=== PATIENT | female | born 1995 | race Caucasian/White ===

== ENCOUNTER 2018-05-07 00:25 | Outpatient (CLI) | payer MEDICAID, SELFPAY ==
--- NOTE | 2018-05-07 12:43 | DI.CT_ITS ---
SYMPTOMS/DIAGNOSIS: UMBILICAL DRAINAGE S/P URACHAL CYST RESECTION, R19.[address]: CT examination of the abdomen and pelvis was performed utilizing oral contrast only. The patient reportedly has umbilical drainage post urachal cyst resection. Images obtained through the lung bases are unremarkable. Liver, spleen and pancreas appear normal. Gallbladder and bile ducts are CT normal. Adrenals and kidneys appear normal. Abdominal aorta is of normal diameter. No abdominal or pelvic adenopathy seen. No free air or free fluid in the peritoneal cavity. WAD LUBRICATOR structures appear intact. Urinary bladder is essentially empty. Appendix appears normal. No evidence of diverticulitis or bowel obstruction. No fluid collection, abscess or mass identified in the anterior abdominal wall or elsewhere. CONCLUSION: Negative abdominal and pelvic CT.
[2018-05-07] MEDS: Omnipaque 350 MG/ML 50 ML BTL IV (13:51)
== END 2018-05-07 00:45 ==
PROVIDERS: PCP Pediatrics; Visit Provider Surgery
DX: R19.8 Other specified symptoms and signs involving the digestive system and abdomen (principal); Z98.890 Other specified postprocedural states; L08.82 Omphalitis not of newborn
CPT/HCPCS: 74176; Q9967

== ENCOUNTER 2018-07-19 07:52 | Emergency (ER) | payer MEDICAID, SELFPAY ==
[2018-07-19 07:55] VITALS: BP 133/56; PULSE 98; RESP 18; TEMP 36.7; O2SAT 100
--- NOTE | 2018-07-19 08:03 | ED.GENADUL_ITS ---
Discharge Plan Disposition Patient Disposition: HOME Condition: Improving Discharge Details Chief Complaint: Abd Prob Clinical Impression: Abdominal pain, Nausea vomiting and diarrhea Primary Care Provider: Melinda Huang V ED Provider: Carmen Henley Home Meds and New Rx's Prescriptions: New ondansetron HCl [Zofran] 4 mg tablet 4 mg PO TID PRN (Reason: nausea and vomiting) Qty: 6 RF: 0 Continued Nexplanon 68 MG implant 68 mg SQ ONCE Qty: 1 RF: 0 multivitamin [One Daily] 1 EACH tablet 1 ea PO DAILY RF: 0 ibuprofen 600 MG tablet 600 mg PO Q6H PRN PRNQty: 30 RF: 1 acetaminophen [Tylenol] 325 MG tablet 650 mg PO PRN PRNQty: 0 RF: 0 Discharge Instructions Instructions: Acute Nausea and Vomiting (ED), Abdominal Pain (ED) Additional Instructions: Take the Zofran as needed and directed for any nausea or vomiting. Alternate Tylenol and Motrin as needed directed for pain. Follow a bland diet of bananas, rice, applesauce, toast, pretzels and crackers while symptoms present. Call your primary care doctor and women's wellness today to schedule a follow-up appointment for reevaluation. Return to the emergency department with any worsening or new concerning symptoms. Stand Alone Forms: Work Release Discharge Data Discharge Date/Time-TO BE ENTERED AT DEPARTURE: 07/19/18 10:59 Discharge Physician: Carmen Henley Medical Decision Making 22-year-old female with a history of asthma and migraines who presents with nausea, vomiting and diarrhea for the past 2 weeks and right-sided abdominal pa in since this morning. She has a Nexplanon for the past 3 years. She took a test this morning which was positive. A second test was read as error. She has right-sided abdominal pain extending from the right upper to right lower quadrant, most pronounced in the right lower quadrant. Otherwise her abdomen is soft without rigidity or guarding. test negative on arrival. Differential diagnosis includes appendicitis, gastroenteritis, colitis, ovarian cyst, cholecystitis, cholelithiasis. Due to positive test at home, will check a beta quant, CBC, CMP, lipase, urinalysis. Pending quant results, and if negative, will obtain a CT abdomen and pelvis to assess for appendicitis. 0950 --labs reviewed and unremarkable. Normal white blood cell count, e lectrolytes. Beta quant negative. Urinalysis notes 5-10 WBCs, urine culture sent. In the setting of no fever, no white blood cell count and no urinary symptoms, will hold on antibiotic treatment for this at this time. On reassessment of abdomen, patient still with right lower quadrant greater than right upper quadrant tenderness palpation. Patient is agreeable with plan for CT abdomen at this time. Will give a dose of Toradol and reassess. 1025 --CT negative. Patient states he feels much better and is requesting to go home. Reassessment of abdomen notes significant improvement in abdominal tenderness. Will send home with a prescription for Zofran. Discussed at length with patient that due to her daily symptoms of nausea and vomiting, this could be associated with her daily marijuana use and cyclic vomiting and to consider a trial off marijuana to see if this improves her symptoms. Also discussed that her symptoms could be due to a viral process. She is instructed to follow a bland diet for the next 2 days. She is instructed to call her primary care doctor and women's wellness to schedule a follow-up appointment for reevaluation and return here at any time if worse. Medical Records Medical records reviewed: Yes I reviewed the patient's medical records. Imaging Data Radiologic Study: Radiologist's impression: ABDOMEN AND PELVIC CT: CT examination of the abdomen and pelvis was performed with a bolus infusion of 100 cc's of Omnipaque 350. Images obtained through the lung bases are unremarkable. There is a tiny low attenuation focus and right hepatic lobe inferiorly consistent with small cysts. No additional hepatic mass seen. No biliary dilatation. Gallbladder is CT normal. Pancreas appears normal. Adrenals and kidneys appear normal. No evidence of urinary tract calcification or obstruction. Urinary bladder is unremarkable in appearance. 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 No free fluid identified in the pelvis. No abdominal wall hernia is seen. No abdominal or pelvic adenopathy is seen. Appendix is normal. No evidence of diverticulitis or bowel obstruction. CONCLUSION: Negative abdominal and pelvic CT. Lab Data Lab results reviewed: Yes I reviewed the patient's lab results. 07/19/18 08:00 Urine - Reflex from Ua Urine Culture - Pending Laboratory Tests Range/Units 07/19/18 07/19/18 07/19/18 08:00 08:35 08:35 WBC (4.4-10.8) k/cumm 7.09 RBC (4.00-5.20) m/cumm 5.15 Hgb (12.0-15.5) g/dL 15.5 Hct (36.0-46.0) % 45.0 MCV (80-95) fL 87.4 MCH (27.0-33.0) pg 30.1 MCHC (32.0-36.0) g/dL 34.4 RDW (11.7-14.6) % 12.4 Plt Count (130-400) x1000/uL 326 MPV (8.0-11.0) fL 9.4 Immature Gran % 0.4 Neutrophils % 64.5 Lymphocytes % 26.5 Monocytes % 6.1 Eosinophils % 2.1 Basophils % 0.4 Absolute Neutrophils (1.2-6.7) k/cumm 4.57 Absolute Lymphocytes (1.2-3.4) k/cumm 1.88 Absolute Monocytes (0.11-0.7) k/cumm 0.43 Absolute Eosinophils (0.0-0.7) k/cumm 0.15 Absolute Basophils (0.0-0.2) k/cumm 0.03 Sodium (136-145) mmol/L 139 Potassium (3.5-5.1) mmol/L 4.5 Chloride (98-107) mmol/L 103 Carbon Dioxide (21.0-32.0) mmol/L 28.6 Anion Gap (3-11) mmol/L 7.4 BUN (7-18) mg/dL 10 Creatinine (0.55-1.02) mg/dL 0.94 Estimated GFR/1.73 m2 (mL/min/1.73m2) >= 60.00 Glucose (70-100) mg/dL 98 Calcium (8.5-10.1) mg/dL 9.0 Total Bilirubin (0.2-1.0) mg/dL 1.1 H AST (15-37) U/L 22 ALT (12-78) U/L 63 Alkaline Phosphatase (46-116) U/L 84 Total Protein (6.4-8.2) g/dL 7.8 Albumin (3.4-5.0) g/dL 4.0 Lipase (73-393) U/L 109 Beta HCG, Quant (1-3) mIU/mL < 1 L Urine Color (Yellow) Yellow Urine Clarity Sl cloudy Urine pH (5-8) 7.0 Ur Specific [place] (1.005-1.025) 1.025 Urine Protein (Negative) mg/dL Negative Urine Ketones (Negative) mg/dL Negative Urine Blood (Negative) Negative Urine Nitrite (Negative) Negative Urine Bilirubin (Negative) Negative Urine Urobilinogen (Up TO 0.2) EU/dL 0.2 Ur Leukocyte Esterase (Negative) Small H Urine RBC (0-2) 3-5 H Urine WBC (0-5) HPF 5-10 Ur Epithelial Cells (Negative) HPF Few Urine Crystals (Negative) HPF Negative Urine Bacteria (Negative) HPF Negative Urine Casts (Negative) LPF Negative Urine Mucus (Negative) Trace Ur Culture Indicated? Yes Urine Glucose (Negative) mg/dL Negative HPI General Mode of arrival: ambulatory . Date/Time Provider Initiated Documentation: 07/19/18 07:54 . Limitations to Documentation: no limitations . Information obtained by: patient . HPI Narrative: Patient is a 22-year-old female who presents the ED with complaint of nausea vomiting and diarrhea for the past 2 weeks and abdominal pain since this morning. Patient states every morning she has awoke with nausea with a few episodes of vomiting in the morning and occasionally at nighttime. She states she is also had occasional diarrhea a few times a week. She states her abdominal pain is diffuse and worse on the right side. She states she is on Nexplanon for the past 3 years but due to her symptoms took a test this morning and it was positive. She states she followed up with a second test but states this was read as an error. She states her last menstrual period was January 2016. She states her abdominal pain was initially constant and sharp but is now resolved. She did not eat anything at this morning. She denies any known fever, urinary symptoms, recent antibiotics, recent travel or sick contacts. Related Data Home Medications Medication Instructions Recorded Confirmed multivitamin [One Daily] 1 ea PO DAILY 01/19/17 04/30/18 acetaminophen [Tylenol] 650 mg PO PRN PRN #0 01/21/17 04/30/18 ibuprofen 600 mg PO Q6H PRN PRN #30 tab 01/21/17 04/30/18 Nexplanon 68 mg SQ ONCE #1 implant 09/08/17 04/30/18 ondansetron HCl [Zofran] 4 mg PO TID PRN #6 tab 07/19/18 Previous Rx's Medication Instructions Recorded acetaminophen [Tylenol] 650 mg PO PRN PRN #0 01/21/17 ibuprofen 600 mg PO Q6H PRN PRN #30 tab 01/21/17 ondansetron HCl [Zofran] 4 mg PO TID PRN #6 tab 07/19/18 Allergies Allergy/AdvReac Type Severity Reaction Status Date / Time codeine AdvReac Intermediate hyper Verified 04/30/18 12:49 Melon AdvReac Unknown Hives Uncoded 04/30/18 12:49 General Stated Complaint: Abd Prob KARO: 3 Review of Systems Review of Systems All systems reviewed & are unremarkable except as noted in HPI and below Constitutional Reports as per HPI, Denies chills and Denies fever(s) Eyes Denies blurry vision ENT Denies dizziness, Denies sore throat and Denies throat swelling Cardiovascular Denies chest pain and Denies dyspnea Respiratory Denies cough and Denies dyspnea Gastrointestinal Reports abdominal pain, Reports diarrhea and Reports vomiting Genitourinary Denies hematuria and Denies dysuria Musculoskeletal Denies back pain and Denies numbness Integumentary/Breasts Denies lesions and Denies rash Neurologic Denies dizziness, Denies focal weakness and Denies numbness Allergic/Immunologic Denies throat swelling [facility] Medical History Asthma Migraine Surgical History Urachal remnant (Acute) S/P exploratory laparotomy (Acute) Biopsy, Soft Tissue (04/17/17) Tonsillectomy and adenoidectomy (~2010) urachal cyst excision (01/21/17) Family History Mother Mental disorder Father Substance abuse Migraines Other Diabetes Migraines Neoplasm Sister Asthma Sister Asthma Social History Smoking/Tobacco Use Status: Current every day Tobacco Type: cigarettes Alcohol Intake: never Drug use: Never Substance use type: marijuana Do you feel safe at home: Yes Do you feel safe in your relationship?: Yes Exam Const General: cooperative, healthy appearing and no acute distress HENMT Head: normal to inspection Face and sinus: normal facial exam Eyes General: appearance normal, both eyes and all related structures EOM: EOM intact bilaterally Neck Neck: normal visual inspection and No submandibular swelling Lymphatic: no lymphadenopathy noted Chest Chest: normal inspection of the chest and no tenderness Resp Effort & Inspection: normal respiratory effort and able to speak in complete sentences Auscultation: clear to auscultation bilaterally Cardio Rate: regular rate Rhythm: regular rhythm GI Inspection: normal to inspection Palpation: soft, not firm, not rigid and tender (extending from RUQ to RLQ, most tender in RLQ) other (negative heel jar sign); obturator sign negative, psoas sign negative, with no rebound tenderness and Rovsing's sign negative Auscultation: hypoactive bowel sounds Skin General skin exam: no rashes or lesions noted Neuro General: alert, awake and oriented x3 Cognition: normal cognition Speech: speech normal Motor: muscle tone normal throughout Sensory Exam: no sensory deficits noted Extrem General: normal to inspection, full ROM and no edema Psych Appearance: grossly normal Mental Status: mental status grossly normal Speech and Movement: speech and movement normal Affect: normal affect Course Vital Signs Temperature 98.1 F 07/19/18 07:55 Pulse 98 H 07/19/18 07:55 Respiratory Rate 18 07/19/18 07:55 Blood Pressure 133/56 L 07/19/18 07:55 Pulse Oximetry 100 07/19/18 07:55 Temperature 98.1 F 07/19/18 07:55 Temperature Source Skin 07/19/18 07:55 Pulse 98 H 07/19/18 07:55 Respiratory Rate 18 07/19/18 07:55 Blood Pressure 133/56 L 07/19/18 07:55 Blood Pressure Position Supine 07/19/18 07:55 Pulse Oximetry 100 07/19/18 07:55 Oxygen Delivery Method Room Air 07/19/18 07:55 Oxygen Flow Rate 0 07/19/18 07:55
[2018-07-19 08:16] LABS: Bilirubin Negative (Negative); Blood Negative (Negative); Clarity Sl Cloudy; Glucose Negative (Negative); Ketones Negative (Negative); Leukocyte Esterase Small (Negative); Nitrite Negative (Negative); Specific Gravity 1.025 (1.005-1.025); Urobilinogen 0.2 EU/dL (Up TO 0.2)
[2018-07-19 08:29] LABS: Bacteria Negative HPF (Negative); C & S Indicated? Yes; Casts Negative LPF (Negative); Crystals Negative HPF (Negative); Epithelial Cells Few HPF (Negative); Mucus Trace (Negative)
[2018-07-19 08:40] LABS: Abs Immature Grans 0.03 k/cumm (0.0-0.09); Absolute Basophil Count 0.03 k/cumm (0.0-0.2); Absolute Eosinophil Count 0.15 k/cumm (0.0-0.7); Absolute Lymphocyte Count 1.88 k/cumm (1.2-3.4); Absolute Monocyte Count 0.43 k/cumm (0.11-0.7); Absolute Neutrophil Count 4.57 k/cumm (1.2-6.7); Basophils % 0.4; Eosinophils % 2.1; HGB 15.5 g/dL (12.0-15.5); Immature Grans % 0.4; Lymphocytes % 26.5; Mean Corp. HGB Concentration 34.4 g/dL (32.0-36.0); Mean Corpuscular Hemoglobin 30.1 pg (27.0-33.0); Mean Corpuscular Volume 87.4 fL (80-95); Mean Platelet Volume 9.4 fL (8.0-11.0); Monocytes % 6.1; Neutrophils % 64.5; Platelet Count 326 x1000/uL (130-400); RBC 5.15 m/cumm (4.00-5.20); RBC Distribution Width 12.4 % (11.7-14.6); White Blood Cell Count 7.09 k/cumm (4.4-10.8)
[2018-07-19 09:05] LABS: ALT 63 U/L (12-78); AST 22 U/L (15-37); Alkaline Phosphatase 84 U/L (46-116); Anion Gap 7.4 mmol/L (3-11); BUN 10 mg/dL (7-18); Bilirubin, Total 1.1 mg/dL (0.2-1.0); CO2 28.6 mmol/L (21.0-32.0); CREATININE 0.94 mg/dL (0.55-1.02); Chloride 103 mmol/L (98-107); Glucose 98 mg/dL (70-100); HCG Quant, Pregnancy < 1 mIU/mL (1-3); Potassium 4.5 mmol/L (3.5-5.1); Sodium 139 mmol/L (136-145); Total Protein 7.8 g/dL (6.4-8.2)
[2018-07-19 09:15] LABS: Lipase 109 U/L (73-393)
--- NOTE | 2018-07-19 09:47 | DI.CT_ITS ---
SYMPTOM/DIAGNOSIS: RLQ AND RUQ ABD PAIN, ? APPENDICITIS ABDOMEN AND PELVIC CT: CT examination of the abdomen and pelvis was performed with a bolus infusion of 100 cc's of Omnipaque 350. Images obtained through the lung bases are unremarkable. There is a tiny low attenuation focus and right hepatic lobe inferiorly consistent with small cysts. No additional hepatic mass seen. No biliary dilatation. Gallbladder is CT normal. Pancreas appears normal. Adrenals and kidneys appear normal. No evidence of urinary tract calcification or obstruction. Urinary bladder is unremarkable in appearance. RUG DRY ROOM ATTENDANT structures appear intact. No free fluid identified in the pelvis. No abdominal wall hernia is seen. No abdominal or pelvic adenopathy is seen. Appendix is normal. No evidence of diverticulitis or bowel obstruction. CONCLUSION: Negative abdominal and pelvic CT.
[2018-07-19] MEDS: Ketorolac 30 MG/ML VIAL IVP (09:53)
[2018-07-19] MEDS: Normal Saline Flush 10 ML SYR IVP (09:53)
[2018-07-19] MEDS: Omnipaque 350 MG/ML 100 ML BTL IJ (10:17)
[2018-07-19 10:58] VITALS: BP 110/78; PULSE 66; RESP 16; TEMP 36.7; O2SAT 99
== END 2018-07-19 10:59 | disposition home or self-care (01) ==
PROVIDERS: Emergency Provider Physician Assistant; PCP Pediatrics
DX: R10.31 Right lower quadrant pain (principal); R10.11 Right upper quadrant pain; R11.2 Nausea with vomiting, unspecified; R19.7 Diarrhea, unspecified
CPT/HCPCS: 36415; 80053; 81025; 83690; 96374; 99285; 74177; 81003; 81015; 84702; 85025; 87086; 99284; J1885; J3490

== ENCOUNTER 2018-08-15 12:11 | Emergency (ER) | payer MEDICAID, SELFPAY ==
[2018-08-15 12:33] VITALS: BP 125/95; PULSE 83; RESP 16; TEMP 36.7; O2SAT 98
--- NOTE | 2018-08-15 12:53 | DI.RAD_ITS ---
SYMPTOM/DIAGNOSIS: TRAUMA, ANATOMICAL SNUFF BOX PAIN, PUNCHED WALL,5TH METACARPAL PAIN RIGHT WRIST: Four views were obtained. No fracture is seen. RIGHT HAND: Three views were obtained. No fracture is seen.
--- NOTE | 2018-08-15 13:38 | DI.VRAD_ITS ---
EXAM: XR Right Wrist EXAM DATE/TIME: 08/15/2018 12:55 PM CLINICAL HISTORY: 23 years old, female; Signs and symptoms; Other: Trauma, anatomical snuffbox pain TECHNIQUE: Imaging protocol: XR Right wrist. Views: 3 or more views. COMPARISON: No relevant prior studies available. FINDINGS: Bones/joints: Normal. Soft tissues: Normal. IMPRESSION: No acute findings. Dictated and Authenticated by: Anup Smith MD. Ordering:EDIS Landrum MD
--- NOTE | 2018-08-15 13:38 | DI.VRAD_ITS ---
EXAM: XR Right Hand EXAM DATE/TIME: 08/15/2018 12:55 PM CLINICAL HISTORY: 23 years old, female; Signs and symptoms; Other: Trauma, fifth metacarpal pain TECHNIQUE: Imaging protocol: XR Right hand. Views: 3 or more views. COMPARISON: No relevant prior studies available. FINDINGS: Bones/joints: Normal. Soft tissues: Normal. IMPRESSION: No acute findings. Dictated and Authenticated by: Anup Smith MD. Ordering:EDIS Landrum MD
--- NOTE | 2018-08-15 14:37 | ED.GENADUL_ITS ---
Discharge Plan Disposition Patient Disposition: HOME Condition: Stable Discharge Details Chief Complaint: Orthopedic Clinical Impression: Contusion of hand, right, Sprain of wrist, right Primary Care Provider: Melinda Huang V ED Provider: Diallo Simmons Home Meds and New Rx's Prescriptions: Continued Nexplanon 68 MG implant 68 mg SQ ONCE Qty: 1 RF: 0 multivitamin [One Daily] 1 EACH tablet 1 ea PO DAILY RF: 0 ibuprofen 600 MG tablet 600 mg PO Q6H PRN PRNQty: 30 RF: 1 acetaminophen [Tylenol] 325 MG tablet 650 mg PO PRN PRNQty: 0 RF: 0 Discharge Instructions Instructions: Contusion in Adults (ED), Wrist Sprain (ED) Additional Instructions: Continue use [id number] pain medication as needed for discomfort, apply ice, and wear splint as needed for further relief of pain. Return to the emergency department for new or significant worsening of symptoms otherwise follow-up with your primary care provider as needed for reassessment or if not improving in the next couple weeks. Referrals: Melinda Huang MD [Primary Care Provider] - (As needed for reassessment or if not improving) Discharge Data Discharge Date/Time-TO BE ENTERED AT DEPARTURE: 08/15/18 14:55 Medical Decision Making Patient states yesterday she punched a wall with her right hand. Today she noted some bruising and significant discomfort over the fifth metacarpal. Patient also does state some wrist pain. Physical exam shows significant tenderness to palpation of the fifth metacarpal mainly at the distal aspect with moderate ecchymosis and swelling to that area. Patient also does have anatomical snuffbox tenderness to the wrist otherwise no other acute findings noted on exam.. Plan to do radiological imaging to rule out acute fracture. Review of radiological imaging and radiologist interpretation shows no acute findings no fracture no dislocation. Plan to treat conservatively with splinting, [id number] pain medication and activity as tolerated. HPI General Mode of arrival: ambulatory . Date/Time Provider Initiated Documentation: 08/15/18 12:38 . Limitations to Documentation: no limitations . Information obtained by: patient and RN notes reviewed . History of Present Illness 23 year old F presents to the emergency department with the chief complaint of right hand injury, described as moderate, with intensity rated at 7. Quality is described as aching and sharp, and is localized to the right and upper extremity. Patient started experiencing this day(s) (1) and it has been constant. No relieving factors improve symptom(s), Patient did receive the following treatments prior to arrival, none Related Data Home Medications Medication Instructions Recorded Confirmed multivitamin [One Daily] 1 ea PO DAILY 01/19/17 08/15/18 acetaminophen [Tylenol] 650 mg PO PRN PRN #0 01/21/17 08/15/18 ibuprofen 600 mg PO Q6H PRN PRN #30 tab 01/21/17 08/15/18 Nexplanon 68 mg SQ ONCE #1 implant 09/08/17 04/30/18 Previous Rx's Medication Instructions Recorded acetaminophen [Tylenol] 650 mg PO PRN PRN #0 01/21/17 ibuprofen 600 mg PO Q6H PRN PRN #30 tab 01/21/17 Allergies Allergy/AdvReac Type Severity Reaction Status Date / Time codeine AdvReac Intermediate hyper Verified 08/15/18 12:38 Melon AdvReac Unknown Hives Uncoded 08/15/18 12:38 General Stated Complaint: Orthopedic KARO: 4 Review of Systems Musculoskeletal Reports as per HPI, Denies numbness and Denies tingling Integumentary/Breasts Denies rash, Denies sores and Denies wounds Neurologic Denies numbness and Denies tingling PFSH Medical History Asthma Migraine Surgical History Urachal remnant (Acute) S/P exploratory laparotomy (Acute) Biopsy, Soft Tissue (04/17/17) Tonsillectomy and adenoidectomy (~2010) urachal cyst excision (01/21/17) Family History Mother Mental disorder Father Substance abuse Migraines Other Diabetes Migraines Neoplasm Sister Asthma Sister Asthma Social History Smoking/Tobacco Use Status: Current every day Tobacco Type: cigarettes Alcohol Intake: never Drug use: Never Substance use type: marijuana Do you feel safe at home: Yes Do you feel safe in your relationship?: Yes Exam Const General: cooperative and no acute distress Orientation: alert, awake and oriented x3 Resp Effort & Inspection: normal respiratory effort and able to speak in complete sentences Cardio Rate: regular rate Rhythm: regular rhythm Extrem Right upper extremity: wrist Details: tenderness Location: of the anatomic snuffbox, abnormal ROM Details: pain with active ROM during Details: with extension and with flexion, normal vascular exam and radial pulse present; no unusual warmth, no abrasions, no ecchymosis and no deformity and hand Details: normal capillary refill, neuromotor exam normal, neurosensory exam normal, tendon exam normal, tenderness Location: of the dorsal hand Location: over the 5th metacarpal and of the 5th digit Location: at the MCP joint, normal ROM of fingers and swelling Location: of the dorsal hand Location: over the 4th metacarpal and over the 5th metacarpal; no abrasions and no lacerations Course Vital Signs Temperature 36.7 C 08/15/18 12:33 Pulse 83 08/15/18 12:33 Respiratory Rate 16 08/15/18 12:33 Blood Pressure 125/95 H 08/15/18 12:33 Pulse Oximetry 98 08/15/18 12:33 Temperature 36.7 C 08/15/18 12:33 Temperature Source Temporal Artery Scan 08/15/18 12:33 Pulse 83 08/15/18 12:33 Respiratory Rate 16 08/15/18 12:33 Respiratory Effort 08/15/18 12:37 Blood Pressure 125/95 H 08/15/18 12:33 Blood Pressure Position Sitting 08/15/18 12:33 Pulse Oximetry 98 08/15/18 12:33 Oxygen Delivery Method Room Air 08/15/18 12:33 Oxygen Flow Rate 0 08/15/18 12:33 Pain Level 8 08/15/18 12:33
== END 2018-08-15 14:55 | disposition home or self-care (01) ==
PROVIDERS: Emergency Provider Nurse Practitioner Family; PCP Pediatrics
DX: S63.501A Unspecified sprain of right wrist, initial encounter (principal); S60.221A Contusion of right hand, initial encounter; W22.8XXA Striking against or struck by other objects, initial encounter
CPT/HCPCS: 29125; 99284; 73110; 73130; 99282; L3908

== ENCOUNTER 2018-08-19 12:56 | Outpatient (CLI) | payer MEDICAID, SELFPAY ==
--- NOTE | 2018-08-19 14:30 | DI.US_ITS ---
SYMPTOMS/DIAGNOSIS: RIGHT UPPER QUADRANT PAIN, RADIATES TO BACK, CYST IN LIVER ON CT, R10.11 ABDOMINAL ULTRASOUND: Comparison CT is 07/19/18. The aorta is unremarkable, as is the inferior vena cava. The liver is normal in size. No suspicious hepatic mass is seen. Incidental note is made of a 0.5 cm simple cyst in the inferior right lobe. The gallbladder, bile duct, spleen and kidneys are unremarkable. Portions of the body of the pancreas were visualized and are grossly unremarkable. The remainder of the pancreas could not be seen due to overlying bowel. IMPRESSION: Essentially unremarkable abdominal ultrasound.
== END 2018-08-19 13:16 ==
PROVIDERS: PCP Pediatrics; Visit Provider Pediatrics
DX: R10.11 Right upper quadrant pain (principal); K76.89 Other specified diseases of liver
CPT/HCPCS: 76700

== ENCOUNTER 2018-09-10 08:34 | Emergency (ER) | payer MEDICAID, SELFPAY ==
[2018-09-10 08:36] VITALS: BP 132/88; PULSE 98; RESP 16; TEMP 36.9; O2SAT 96
--- NOTE | 2018-09-10 08:45 | DI.RAD_ITS ---
SYMPTOM/DIAGNOSIS: INVERTED FOOT, FREDERICK MID FOOT AND ANTERIOR ANKLE. RIGHT ANKLE; 09/10 Three views were obtained. The ankle mortise appears well maintained. No fracture is seen. RIGHT FOOT: 09/10 Three views were obtained. No fracture is seen.
--- NOTE | 2018-09-10 09:12 | ED.GENADUL_ITS ---
Discharge Plan Disposition Patient Disposition: HOME Condition: Good Discharge Details Chief Complaint: Orthopedic Clinical Impression: Ankle sprain, Contusion of foot Primary Care Provider: Melinda Huang V ED Provider: Zheng Ortega Home Meds and New Rx's Prescriptions: No Action ondansetron 4 mg tablet,disintegrating 4 mg PO Q6H PRN PRN (Reason: nausea and vomiting) Qty: 10 RF: 0 Nexplanon 68 MG implant 68 mg SQ ONCE Qty: 1 RF: 0 multivitamin [One Daily] 1 EACH tablet 1 ea PO DAILY RF: 0 ibuprofen 600 MG tablet 600 mg PO Q6H PRN PRNQty: 30 RF: 1 acetaminophen [Tylenol] 325 MG tablet 650 mg PO PRN PRNQty: 0 RF: 0 Discharge Instructions Instructions: Ankle Sprain (ED), Foot Contusion (ED) Additional Instructions: At this time the x-ray shows no evidence of significant fracture dislocation. I suspect you notably sprained your ankle and foot. Please use the walking boot, ice, Tylenol, and Motrin as needed for pain. Please remain nonweightbearing on your foot for the next week. Then gradually add weightbearing as tolerated. If you notice any worsening of your symptoms, or any new symptoms such as vomiting, diarrhea, fever, chills, shortness of breath, chest pain, numbness, weakness, or fainting , please return immediately to the emergency department for reevaluation. Please follow up with your primary care provider as soon as possible for reassessment and reevaluation. As always, it was a pleasure participating in your medical care today. Referrals: Melinda Huang MD [Primary Care Provider] - Medical Decision Making This is a 23-year-old female who presents with right foot pain. Last night she inverted the foot and landed on the lateral aspect. She has notable pain over the anterior component of the ankle, as well as the ball of the foot. Pain is made worse with dorsiflexion, sensation is intact, neurovascularly intact. Aside for tenderness and pain with movement no other significant abnormalities noted in the foot. Suspecting notable sprain. 9:34 AM X-ray results per Dr. Orantes show no evidence of acute fracture dislocation. Personal review also notes no significant abnormality. Patient's pain is controlled with NSAIDs, we will give crutches, a walking boot, recommend nonweightbearing for the next week, followed by general weightbearing as tolerated. Recommend R.I.C.E. Discussed red flags which to return the importance of close follow-up. Diagnosis ankle sprain. I have extensively reviewed the treatment plan and discharge instructions with the patient and their family. I have addressed all patient concerns at this time. The patient and family was made aware of what symptoms to monitor for that would warrant a return to the emergency department. Discussed the plan with the patient and family, they demonstrate verbal understanding and agreement with our assessment and plan at this time. HPI General Date/Time Provider Initiated Documentation: 09/10/18 08:35 . HPI Narrative: This is a 23-year-old female with no significant past medical history who presents today for evaluation of right ankle pain. The patient states that last night she was walking and stumbled down a hill. She did not fall or hit her head but she did land on her foot slightly inverted with a pressure coming down on the lateral aspect of her right foot. She is able to walk yesterday however this morning when she awoke she had notable pain with ambulation and movement. Difficulty bearing weight. She has taken no Tylenol or Motrin. Pain is located in the ball of the foot, as well as the anterior component of the ankle. She denies any other complaints. She has not taken any NSAIDs. No other modifying factors at this time. No history of IV or illicit drug use, recent surgeries or pertinent family history. Related Data Home Medications Medication Instructions Recorded Confirmed multivitamin [One Daily] 1 ea PO DAILY 01/19/17 08/19/18 acetaminophen [Tylenol] 650 mg PO PRN PRN #0 01/21/17 08/19/18 ibuprofen 600 mg PO Q6H PRN PRN #30 tab 01/21/17 08/19/18 Nexplanon 68 mg SQ ONCE #1 implant 09/08/17 08/19/18 ondansetron 4 mg disintegrating 4 mg PO Q6H PRN PRN #10 tab 08/19/18 08/19/18 tablet Previous Rx's Medication Instructions Recorded acetaminophen [Tylenol] 650 mg PO PRN PRN #0 01/21/17 ibuprofen 600 mg PO Q6H PRN PRN #30 tab 01/21/17 ondansetron 4 mg disintegrating 4 mg PO Q6H PRN PRN #10 tab 08/19/18 tablet Allergies Allergy/AdvReac Type Severity Reaction Status Date / Time codeine AdvReac Intermediate hyper Verified 09/10/18 08:40 Melon AdvReac Unknown Hives Uncoded 09/10/18 08:40 General Stated Complaint: Orthopedic KARO: 4 Review of Systems Review of Systems All systems reviewed & are unremarkable except as noted in HPI and below PFSH Social History Smoking/Tobacco Use Status: Current every day Tobacco Type: cigarettes Alcohol Intake: current Alcohol Intake frequency: a few times a week Drug use: Never Substance use type: marijuana Do you feel safe at home: Yes Do you feel safe in your relationship?: Yes Exam Narrative Exam Narrative: 1.Const: Well-nourished, Well-developed, appearing stated age 2.Eyes: PERRL, no conjunctival injection, and symmetrical lids. 3.ENT: Atraumatic external nose and ears. Moist MM. Neck: Symmetric, trachea midline, No thyromegaly. 4.CVS: +S1/S2, No murmurs or gallops. Peripheral pulses 2+ and equal in all extremities. Brisk capillary refill in all extremities. 5.RESP: Unlabored respiratory effort. Clear to auscultation bilaterally. No wheezes rales or rhonchi 6.GI: Soft, Nontender/Nondistended, No hepatosplenomegaly. No guarding or rebound. 7.MSK: Normocephalic/Atraumatic, Extremities w/o deformity or ttp No cyanosis or clubbing, Normal movement of all extremities Right lower extremity: Patient has +5 out of 5 strength in the lower extremity in dorsiflexion and plantarflexion, knee flexion and extension, hip flexion and extension. There is +2 over 2 dorsalis pedis pulses bilaterally. There is normal sensation to the skin with light touch at the foot knee and hip. Patient has notable tenderness over the anterior ankle, as well as on the ball of the foot on the plantar aspect. Patient is able to flex and extend toes but there is mild to moderate pain with this. She has notable difficulty dorsiflexing her ankle secondary to pain, but is able to plantar flex. Mild pain over the lateral aspect of the foot. No pain or tenderness over the calcaneus. Gastrocnemius and Achilles tendon is intact and nontender. Ankle is otherwise stable not loose 8.Skin: Warm, Dry. No rashes or lesions. 9.Neuro: canal structure operator II-XII grossly intact. Sensation grossly intact, no focal neurologic deficits. 10.Psych: (AAO) x3. Appropriate mood and affect Course Vital Signs Temperature 36.9 C 09/10/18 08:36 Pulse 98 H 09/10/18 08:36 Respiratory Rate 16 09/10/18 08:36 Blood Pressure 132/88 09/10/18 08:36 Pulse Oximetry 96 09/10/18 08:36 Temperature 36.9 C 09/10/18 08:36 Temperature Source Skin 09/10/18 08:36 Pulse 98 H 09/10/18 08:36 Respiratory Rate 16 09/10/18 08:36 Respiratory Effort Non-Labored 09/10/18 08:40 Blood Pressure 132/88 09/10/18 08:36 Blood Pressure Position Sitting 09/10/18 08:36 Pulse Oximetry 96 09/10/18 08:36 Oxygen Delivery Method Room Air 09/10/18 08:36 Oxygen Flow Rate 0 09/10/18 08:36 Pain Level 7 09/10/18 08:36
[2018-09-10] MEDS: Acetaminophen 500 MG TAB 1000 MG PO (09:30)
[2018-09-10] MEDS: Ibuprofen 800 MG TAB PO (09:30)
[2018-09-10 09:55] VITALS: BP 132/88; PULSE 98; RESP 16; TEMP 36.9; O2SAT 96
== END 2018-09-10 09:52 | disposition home or self-care (01) ==
PROVIDERS: Emergency Provider Student in an Organized Health Care Education/Training Program; PCP Pediatrics
DX: S93.421A Sprain of deltoid ligament of right ankle, initial encounter (principal); S90.31XA Contusion of right foot, initial encounter; X50.9XXA Other and unspecified overexertion or strenuous movements or postures, initial encounter
CPT/HCPCS: 99284; 73610; 73630; 99282; E0114; L4361

== ENCOUNTER 2019-09-26 06:52 | Emergency (ER) | payer MEDICAID, SELFPAY ==
[2019-09-26 07:04] VITALS: BP 137/76; PULSE 88; TEMP 36.9; O2SAT 98
--- NOTE | 2019-09-26 07:26 | ED.GENADUL_ITS ---
Discharge Plan Disposition Patient Disposition: HOME Condition: Good Discharge Details Chief Complaint: AnimalBite Clinical Impression: Cat bite of left wrist Primary Care Provider: Melinda Huang V ED Provider: Zheng Ortega Home Meds and New Rx's Prescriptions: New amoxicillin-pot clavulanate [Augmentin] 875-125 mg tablet 1 tab PO BID Qty: 20 RF: 0 Continued Nexplanon 68 mg implant 1 implant SBD ONCE Qty: 1 RF: 0 multivitamin [One Daily] 1 EACH tablet 1 ea PO DAILY RF: 0 ibuprofen 600 MG tablet 600 mg PO Q6H PRN PRNQty: 30 RF: 1 acetaminophen [Tylenol] 325 MG tablet 650 mg PO PRN PRNQty: 0 RF: 0 Discharge Instructions Instructions: Animal Bite (ED) Additional Instructions: At this time you have mild infection from cat bite. Please take the antibiotic as directed. You can take 1000 mg of Tylenol and 800 mg of ibuprofen every 6 hours to help with the pain. Please use ice on the affected area. If you notice any worsening of your symptoms, or any new symptoms such as spreading of the redness, worsening numbness or tingling, worsening pain with movement of your fingers, worsening swelling, vomiting, diarrhea, fever, chills, shortness of breath, chest pain, numbness, weakness, or fainting , please return immediately to the emergency department for reevaluation. Please follow up with your primary care provider as soon as possible for reassessment and reevaluation. As always, it was a pleasure participating in your medical care today. Please follow-up closely with the orthopedic physician Dr. Bello on Thursday. Please contact their office today to set up this appointment time. Stand Alone Forms: Work Release Referrals: Miki Bello MD [ [facility]] - Medical Decision Making This is a pleasant 24-year-old [id number] female who presents today for evaluation of cat bite. Is her own cat, immunizations including rabies are up-to-date. Patient's tetanus was last updated 9 years ago. Patient states that last night the 6-month-old cat bit her on the left wrist. She also was scratched on the left shoulder. Since then she has had mild swelling and pain in the wrist. She admits to mild pain in the wrist when she extends her fingers but denies any pain in her hand or fingers. She denies any systemic symptoms of fever or chills. No pain in the elbow or forearm otherwise. No other complaints at this time. Physical exam demonstrates 2 small punctate lesions on the forearm just proximal to the wrist on the medial aspect. Mild redness and swelling but no fluctuance. No spreading redness to the hand or proximal forearm. Mild pain on active and passive complete extension of the third fourth and fifth fingers, however the pain is located in the wrist and not the hand. Patient is able to extend them well without significant difficulty or severe pain though. Normal sensation, normal capillary refill. Sensation intact including two-point discrimination. No systemic symptoms of fever or chills and no signs of tachycardia. At this time the patient signs and symptoms are clinically inconsistent with flexor tenosynovitis. We will start the patient on Augmentin. We will give her her tetanus shot. Because of the nature of the wound, and the potential for worsening we did contact orthopedics for close follow-up, and discussed the case with Dr. huffman. Patient will follow-up closely with Dr. Foster on Thursday for wound check and reassessment. I had a long discussion with the patient regarding concerning red flags including all signs and symptoms that would be pertinent to flexor tenosynovitis although they are not currently present now. As her signs and symptoms at this time are clinically inconsistent with flexor tenosynovitis and instead clinically consistent with mild cellulitis patient will be discharged home with close follow-up. Her first dose of Augmentin has been given here. Will we discussed red flags for which to return. I have extensively reviewed the treatment plan and discharge instructions with the patient. I have addressed all patient concerns at this time. The patient was made aware of what symptoms to monitor for that would warrant a return to the emergency department. Discussed the plan with the patient, they demonstrate verbal understanding and agreement with our assessment and plan at this time. HPI General Date/Time Provider Initiated Documentation: 09/26/19 07:02 . HPI Narrative: This is a pleasant 24-year-old [id number] female who presents today for evaluation of cat bite. Is her own cat, immunizations including rabies are up-to-date. Patient's tetanus was last updated 9 years ago. Patient states that last night the 6-month-old cat bit her on the left wrist. She also was scratched on the left shoulder. Since then she has had mild swelling and pain in the wrist. She admits to mild pain in the wrist when she extends her fingers but denies any pain in her hand or fingers. She denies any systemic symptoms of fever or chills. No pain in the elbow or forearm otherwise. No other complaints at this time. Related Data Home Medications Medication Instructions Recorded Confirmed multivitamin [One Daily] 1 ea PO DAILY 01/19/17 09/26/19 acetaminophen [Tylenol] 650 mg PO PRN PRN #0 01/21/17 09/26/19 ibuprofen 600 mg PO Q6H PRN PRN #30 tab 01/21/17 09/26/19 etonogestrel 68 mg subdermal 1 implant SBD ONCE #1 each 03/20/19 09/26/19 implant amoxicillin-pot clavulanate 1 tab PO BID #20 tab 09/26/19 [Augmentin] Previous Rx's Medication Instructions Recorded acetaminophen [Tylenol] 650 mg PO PRN PRN #0 01/21/17 ibuprofen 600 mg PO Q6H PRN PRN #30 tab 01/21/17 etonogestrel 68 mg subdermal 1 implant SBD ONCE #1 each 03/20/19 implant amoxicillin-pot clavulanate 1 tab PO BID #20 tab 09/26/19 [Augmentin] Allergies Allergy/AdvReac Type Severity Reaction Status Date / Time codeine AdvReac Intermediate hyper Verified 09/26/19 07:09 Melon AdvReac Unknown Hives Uncoded 09/26/19 07:09 General Stated Complaint: AnimalBite KARO: 4 Review of Systems All systems reviewed & are unremarkable except as noted in HPI and below PFSH Medical History Asthma Contraception (Acute 10/31/16) 2016. Nexplanon. 02/2019 removal and reinsertion Nexplanon. Encounter for removal and reinsertion of Nexplanon (Acute) Migraine no vison changes Surgical History Biopsy, Soft Tissue (04/17/17) excision left lower extremity, melanocytic nevus S/P exploratory laparotomy (Acute) w/ hernia repair Tonsillectomy and adenoidectomy (~2010) urachal cyst excision (01/21/17) Urachal remnant (Acute) s/p surgery Family History Mother Mental disorder anxiety Father Substance abuse Migraines chronic and disabled with O2 therpay for Other Diabetes MGM Migraines paternal side Neoplasm mat great aunt-blood Sister Asthma Sister Asthma Social History Smoking/Tobacco Use Status: Current every day Tobacco Type: cigarettes Alcohol Intake: current Alcohol Intake frequency: a few times a week Drug use: Never Substance use type: marijuana Do you feel safe at home: Yes Do you feel safe in your relationship?: Yes Exam Narrative Exam Narrative: 1.Const: Well-nourished, Well-developed, appearing stated age 2.Eyes: PERRL, no conjunctival injection, and symmetrical lids. 3.ENT: Atraumatic external nose and ears. Moist MM. Neck: Symmetric, trachea midline, No thyromegaly. 4.CVS: +S1/S2, No murmurs or gallops. Peripheral pulses 2+ and equal in all extremities. Brisk capillary refill in all extremities. 5.RESP: Unlabored respiratory effort. Clear to auscultation bilaterally. No wheezes rales or rhonchi 6.GI: Soft, Nontender/Nondistended, No hepatosplenomegaly. No guarding or rebound. 7.MSK: Normocephalic left upper extremity demonstrates mild punctate wounds, no drainage or fluctuance suggestive of abscess. They are located just proximal to the wrist on the medial aspect of the forearm. No spreading redness. Patient demonstrates good get scale installer strength, she is able to flex and extend her fingers well without difficulty. She does have mild passive pain with extension of the third fourth and fifth digit, however the pain is only located in the wrist. No pain in the fingers or hand. Sensation is intact throughout, and the patient demonstrates good two-point discrimination in all fingertips. Normal vascular exam with good brisk capillary refill less than 3 seconds, no swelling or edema of the hand or fingers. 8.Skin: Warm, Dry. Please see musculoskeletal. Additionally there are a few small scratch davis on the left shoulder. No erythema or redness there. 9.Neuro: film color tester II-XII grossly intact. Sensation grossly intact, no focal neurologic deficits. 10.Psych: (AAO) x3. Appropriate mood and affect Course Vital Signs Vital signs: Vital Signs Temperature 36.9 C 09/26/19 07:04 Pulse 88 09/26/19 07:04 Blood Pressure 137/76 09/26/19 07:04 Pulse Oximetry 98 09/26/19 07:04 Temperature 36.9 C 09/26/19 07:04 Temperature Source Temporal Artery Scan 09/26/19 07:04 Pulse 88 09/26/19 07:04 Respiratory Effort Non-Labored 09/26/19 07:08 Blood Pressure 137/76 09/26/19 07:04 Blood Pressure Position Sitting 09/26/19 07:04 Pulse Oximetry 98 09/26/19 07:04 Oxygen Delivery Method Room Air 09/26/19 07:04 Oxygen Flow Rate 0 09/26/19 07:04 Pain Level 6 09/26/19 07:04
[2019-09-26] MEDS: Acetaminophen 500 MG TAB 1000 MG PO (07:29)
[2019-09-26] MEDS: Amox. 875/Clav. 125, 2 TABS/BTL 1 TAB PO (07:29)
[2019-09-26] MEDS: Ibuprofen 800 MG TAB PO (07:30)
--- NOTE | 2019-09-26 08:24 | NUR.NOTE ---
Animal bite form faxed to [facility] Health Officer.Nursing Note:
== END 2019-09-26 07:43 | disposition home or self-care (01) ==
PROVIDERS: Emergency Provider Student in an Organized Health Care Education/Training Program; PCP Pediatrics
DX: S61.552A Open bite of left wrist, initial encounter (principal); W55.01XA Bitten by cat, initial encounter; L08.89 Other specified local infections of the skin and subcutaneous tissue
CPT/HCPCS: 90471; 99284

== ENCOUNTER 2019-09-28 15:42 | Outpatient (CLI) | payer MEDICAID, SELFPAY ==
--- NOTE | 2019-09-28 15:30 | DI.RAD_ITS ---
EXAM: XR WRIST LT COMPLETE CLINICAL HISTORY: r/u debris in cat bite TECHNIQUE: COMPARISON: CR XR wrist RT compl navicular from 08/15/2018 FINDINGS: Two views were obtained. No fracture or other bony abnormality seen. No foreign body identified. IMPRESSION:
== END 2019-09-28 16:02 ==
PROVIDERS: PCP Pediatrics; Referring Provider Pediatrics; Visit Provider Student in an Organized Health Care Education/Training Program
DX: S61.552D Open bite of left wrist, subsequent encounter (principal); W55.01XD Bitten by cat, subsequent encounter
CPT/HCPCS: 73110

== ENCOUNTER 2019-11-07 08:05 | Emergency (ER) | payer MEDICAID, SELFPAY ==
[2019-11-07 08:08] VITALS: BP 136/76; PULSE 114; TEMP 36.5; O2SAT 98
--- NOTE | 2019-11-07 08:33 | W.ED.GENAD ---
Discharge Plan Disposition Patient Disposition: HOME Condition: Stable Discharge Details Chief Complaint: Headache Clinical Impression: Cephalalgia Primary Care Provider: Melinda Huang V ED Provider: Terry Trammell Home Meds and New Rx's Prescriptions: Continued Nexplanon 68 mg implant 1 implant SBD ONCE Qty: 1 RF: 0 multivitamin [One Daily] 1 EACH tablet 1 ea PO DAILY RF: 0 ibuprofen 600 MG tablet 600 mg PO Q6H PRN PRNQty: 30 RF: 1 acetaminophen [Tylenol] 325 MG tablet 650 mg PO PRN PRNQty: 0 RF: 0 Excedrin Extra Strength 250-250-65 mg Tablet 2 tab PO ONCE RF: 0 Discharge Instructions Instructions: General Headache (ED) Additional Instructions: At this time you have responded nicely to the medications here in the ER, and are currently asymptomatic. Please continue ncff-uau-yvrtkec medication as directed for symptomatic control. Plenty of fluids to avoid dehydration. Please watch for new or worsening symptoms and return to the ER for any concerns. I have placed you on the care management list to help expedite your outpatient follow-up through her primary care provider. As we discussed, if symptoms are to persist outpatient referral to neurology may be indicated for further evaluation of your ongoing headaches. Medical Decision Making 24-year-old female who reports that she has suffered from headaches and/or migraines her entire life. Never had a thorough outpatient work-up for these. Reports that felt as a typical migraine began yesterday and progressed throughout the evening, associate with nausea and vomiting. Elbh-hro-zxevlgz medications did not help with her symptoms, unable to hold any medications down. Clinically she appears well, nontoxic. Of note, triage pulse was 114 however during my assessment it was in the low 90s. She has no meningeal signs, is afebrile, and is neurologically intact. Does report an extensive history of migraines and cluster headaches in her family. I do believe this is most likely a migraine or headache of some sort, less likely infectious, traumatic, intracranial hemorrhage, etc. At this time I see no indication for laboratory values or advanced imaging of the brain, will likely not change the outcome of her ER visit. She is sexually active, does have a control implant, will obtain POC test prior to medication ministration. POC negative IV access was established, patient given IV Toradol, Reglan, Benadryl, normal saline. Upon reassessment patient reports that the medications have helped greatly, she is currently asymptomatic. Pain has gone from a 9 out of 10 now to a 0 out of 10. Reports no nausea whatsoever. Discussed the importance of proper outpatient follow-up. I have placed her on the care management list to help expedite outpatient primary care evaluation, and if deemed necessary they can provide her with a neurology consultation as an outpatient. Patient has no additional questions or concerns and is comfortable with this plan. I did discuss the case with Dr. Haque who personally evaluated the patient. Please see his note. Medical Records Medical records reviewed: Yes I reviewed the patient's medical records. HPI General Mode of arrival: ambulatory. Date/Time Provider Initiated Documentation: 11/07/19 08:06. Limitations to Documentation: no limitations. Information obtained by: patient. HPI Narrative: This is a 24-year-old female who reports that she recently moved back to the area and does not have a primary care provider. She denies any significant past medical history to me. Reports that she has had migraines my whole life. Yesterday she began having a which she describes as a typical headache. Began mildly, primarily in the back of her head. Progressively got worse throughout the day and was later associated with nausea and vomiting, no photosensitivity. She took puzg-xvu-rmrbzic medications without much relief. Her last episode of vomiting was around 4 AM and because she was unable to hold any additional medications down she came to the ER for further evaluation. She does not believe that she is ever been fully evaluated for her migraines from a specialist or primary care provider. Has no prescription medications. She denies recent illness, trauma, visual changes, neck pain, chest pain, shortness of breath, numbness, tingling, weakness, abdominal pain, incontinence. She reports that she has been evaluated in an ER in the past, given IV medications, and the symptoms went away in the like 20 minutes. Related Data Home Medications Medication Instructions Recorded Confirmed multivitamin [One Daily] 1 ea PO DAILY 01/19/17 11/07/19 acetaminophen [Tylenol] 650 mg PO PRN PRN #0 01/21/17 11/07/19 ibuprofen 600 mg PO Q6H PRN PRN #30 tab 01/21/17 11/07/19 etonogestrel 68 mg subdermal 1 implant SBD ONCE #1 each 03/20/19 11/07/19 implant Excedrin Extra Strength 2 tab PO ONCE 11/07/19 11/07/19 Previous Rx's Medication Instructions Recorded acetaminophen [Tylenol] 650 mg PO PRN PRN #0 01/21/17 ibuprofen 600 mg PO Q6H PRN PRN #30 tab 01/21/17 etonogestrel 68 mg subdermal 1 implant SBD ONCE #1 each 03/20/19 implant Allergies Allergy/AdvReac Type Severity Reaction Status Date / Time coderell AdvReac Intermediate hyper Verified 11/07/19 08:12 Melon AdvReac Unknown Hives Uncoded 11/07/19 08:12 General Stated Complaint: Headache KARO: 3 Review of Systems Constitutional Constitutional: Denies fatigue, Denies fever(s), Reports headache(s) and Denies weakness Eyes Eyes: Denies change in vision ENT Ears, Nose, Mouth, and Throat: Reports headache(s) and Denies neck pain Cardiovascular Cardiovascular: Denies chest pain and Denies dyspnea Respiratory Respiratory: Denies cough and Denies dyspnea Gastrointestinal Gastrointestinal: Denies abdominal pain, Reports nausea and Reports vomiting Genitourinary Genitourinary: Denies dysuria Musculoskeletal Musculoskeletal: Denies neck pain, Denies numbness and Denies tingling Integumentary/Breasts Skin/Breast: Denies rash Neurologic Neurologic: Reports headache(s), Denies numbness, Denies tingling and Denies weakness Endocrine Endocrine: Denies fatigue [facility] Medical History Asthma Contraception (Acute 10/31/16) 2015. Nexplanon. 02/2019 removal and reinsertion Nexplanon. Encounter for removal and reinsertion of Nexplanon (Acute) Migraine no vison changes Surgical History Biopsy, Soft Tissue (04/17/17) excision left lower extremity, melanocytic nevus S/P exploratory laparotomy (Acute) w/ hernia repair Tonsillectomy and adenoidectomy (~2010) urachal cyst excision (01/21/17) Urachal remnant (Acute) s/p surgery Family History Mother Mental disorder anxiety Father Substance abuse Migraines chronic and disabled with O2 therpay for Other Diabetes MGM Migraines paternal side Neoplasm mat great aunt-blood Sister Asthma Sister Asthma Social History Smoking/Tobacco Use Status: Current every day Tobacco Type: cigarettes Alcohol Intake: current Alcohol Intake frequency: a few times a week Drug use: Occasionally Substance use type: marijuana Current gender identity: female Do you feel safe at home: Yes Do you feel safe in your relationship?: Yes Exam Const General: cooperative, healthy appearing, comfortable and no acute distress Orientation: alert, awake and oriented x3 HENMT Head: normal to inspection, normocephalic and atraumatic Ears: external ears normal, TM's normal bilaterally and EAC's normal General nose exam: external nose normal Face and sinus: normal facial exam Mouth: moist mucous membranes Throat: posterior oropharynx normal Eyes General: appearance normal, both eyes and all related structures Alignment and Position: alignment normal Periorbital: periorbital findings normal Eyelids: eyelids normal Conjunctivae: conjunctivae normal Sclera: sclerae normal Cornea: corneas normal Pupils: PERRL EOM: EOM intact bilaterally Direct ophthalmoscopy: normal light reflex Neck Neck: normal visual inspection, full ROM, no meningeal signs, trachea midline, supple and nontender Resp Effort & Inspection: normal respiratory effort and able to speak in complete sentences Auscultation: clear to auscultation bilaterally Cardio Rate: regular rate Rhythm: regular rhythm GI Inspection: normal to inspection Palpation: soft and nontender Back/Spine/Pelvis Back: No back tenderness Skin General skin exam: no rashes or lesions noted Neuro General: patient alert, patient awake, patient oriented x3, moves all extremities and no focal motor deficits Cranial Nerves: CN's II-XI intact bilaterally Cognition: normal cognition Gait: normal gait Motor: muscle tone normal throughout and strength 5/5 throughout Sensory Exam: no sensory deficits noted Extrem General: normal to inspection, full ROM, capillary refill normal, no pedal edema and no calf tenderness Psych Appearance: grossly normal Mental Status: mental status grossly normal Course Vital Signs Vital signs: Vital Signs Temperature 36.5 C 11/07/19 08:08 Pulse 114 H 11/07/19 08:08 Blood Pressure 136/76 11/07/19 08:08 Pulse Oximetry 98 08/24/20 08:08 Temperature 36.5 C 11/07/19 08:08 Temperature Source Temporal Artery Scan 11/07/19 08:08 Pulse 114 H 11/07/19 08:08 Respiratory Effort Non-Labored 11/07/19 08:11 Blood Pressure 136/76 11/07/19 08:08 Blood Pressure Position Sitting 11/07/19 08:08 Pulse Oximetry 98 11/07/19 08:08 Oxygen Delivery Method Room Air 11/07/19 08:08 Oxygen Flow Rate 0 11/07/19 08:08 Pain Level 8 11/07/19 08:14
--- NOTE | 2019-11-07 08:39 | NUR.NOTE ---
Referral to Care Management to establish primary care. Nursing Note:
[2019-11-07] MEDS: Ketorolac 30 MG/ML VIAL IVP (08:49)
[2019-11-07] MEDS: diphenhydrAMINE 50 MG/ML VIAL 25 MG IVP (08:50)
[2019-11-07] MEDS: Metoclopramide 10 MG/2 ML VIAL IVP (08:50)
[2019-11-07] MEDS: Normal Saline 1,000 ML 1000 ML IV (08:51)
[2019-11-07 09:45] VITALS: BP 107/59; PULSE 68; RESP 18; O2SAT 97
--- NOTE | 2019-11-08 09:31 | PDOC.ERCMPRO ---
- If Service Date Differs Date of service: 11/08/19 Time of Service: 09:31 Care Management Progress Note At the request of ED provider, CM coordinates referral to Kamala Walker MD, on-call provider, of [facility] to assist Stefani in obtaining a follow up appointment and establishing care with PCP.
== END 2019-11-07 09:54 | disposition home or self-care (01) ==
PROVIDERS: Emergency Provider Physician Assistant; PCP Pediatrics
DX: R51 Headache (principal)
CPT/HCPCS: 81025; 96361; 96374; 96375; 99284; J1200; J1885; J2765

== ENCOUNTER 2020-02-03 17:35 | Outpatient (REF) | payer MEDICAID, SELFPAY ==
--- NOTE | 2020-02-03 15:30 | PAPFT_PTH ---
PATIENT: Stefani Hatfield LOC: [facility] U#:[id number] AGE/SX: 24/F ROOM: RE02/03/[address]: Deyanira Torres : 1995 BED: DIS: 02/03/2020 SPEC #: [id number] RECD: 02/06/20 13:09 STATUS: DERRICK REQ #: [id number] EDWIN: 02/03/20 15:[address]: Deyanira Torres DEPT: [facility] Cytology RECD BY: Diana Rdz Tissues: 1 - CX/ENDOCX FOR PAP SMEARS Procedures: PAP THIN PREP/UVM Screening HPV DNA PROBE Comments: [id number] ([id number] [facility]) (CHLAMYDIA/GC)
[2020-02-15 12:01] LABS: Chlamydia Result Negative (Negative)
[2020-02-15 12:03] LABS: GC Result Negative (Negative)
== END 2020-02-03 17:55 ==
LOC: NCHCN 17:35
PROVIDERS: PCP Nurse Practitioner Family; Visit Provider Nurse Practitioner Family
DX: N89.8 Other specified noninflammatory disorders of vagina (principal); Z00.00 Encounter for general adult medical examination without abnormal findings; Z12.4 Encounter for screening for malignant neoplasm of cervix; Z01.419 Encounter for gynecological examination (general) (routine) without abnormal findings; R87.610 Atypical squamous cells of undetermined significance on cytologic smear of cervix (ASC-US); Z11.51 Encounter for screening for human papillomavirus (HPV)
CPT/HCPCS: 87491; 87591; 88142; 87480; 87510; 87624; 87660

== ENCOUNTER 2020-04-27 07:40 | Emergency (ER) | payer MEDICAID, SELFPAY ==
[2020-04-27 07:44] VITALS: BP 113/62; PULSE 85; RESP 18; TEMP 36.7; O2SAT 98
--- NOTE | 2020-04-27 08:08 | W.ED.GENAD ---
Discharge Plan Disposition Patient Disposition: HOME Condition: Stable Discharge Details Clinical Impression: Nausea & vomiting, UTI (urinary tract infection) Primary Care Provider: Deyanira Torres ED Provider: Terry Trammell Home Meds and New Rx's Prescriptions: New ondansetron HCl [Zofran] 4 mg tablet 4 mg PO Q8H PRNQty: 10 RF: 0 cephalexin [Keflex] 500 mg capsule 500 mg PO BID Qty: 10 RF: 0 Continued Nexplanon 68 mg implant 1 implant SBD ONCE Qty: 1 RF: 0 prochlorperazine maleate 5 mg tablet 5 mg PO TID PRN (Reason: headache) Qty: 30 RF: 3 topiramate [Topamax] 50 mg tablet 50 mg PO HS RF: 0 ibuprofen 600 MG tablet 600 mg PO Q6H PRN PRNQty: 30 RF: 1 acetaminophen [Tylenol] 325 MG tablet 650 mg PO PRN PRNQty: 0 RF: 0 Excedrin Extra Strength 250-250-65 mg Tablet 2 tab PO PRN PRNRF: 0 Discharge Instructions Instructions: Urinary Tract Infection in Women (ED), Acute Nausea and Vomiting (ED) Additional Instructions: Work-up in the ER including blood work, urinalysis, ultrasound imaging did not reveal any obvious emergent process. Your bilirubin was elevated and there was bilirubin in your urine, this should be monitored. Clear liquid diet, advance as tolerated. Keflex and Zofran as directed. Please watch for new or worsening symptoms and return to the ER for any concerns. Lastly, I would like you to reach out your primary care provider later today for prompt outpatient reevaluation. Likely additional work-up indicated for your ongoing symptoms. Stand Alone Forms: Work Release Discharge Data Discharge Date/Time-TO BE ENTERED AT DEPARTURE: 04/27/20 10:26 Medical Decision Making This is a 24-year-old female presenting to the ER for 2-week history of nausea and vomiting, no abdominal pain, progressively worse, now severe over the past 24-48 hours. Clinically she appears well, nontoxic. Vital signs are unremarkable. She is afebrile. Abdomen soft, nontender. No dry heaving or vomiting during the HPI or examination. Differential includes not excluded to GERD, gastritis, H. pylori, biliary colic, pancreatitis, UTI, , pyelonephritis, etc. Will obtain IV access, give IV fluid, obtain CBC, CMP, lipase, urinalysis, urine test. No clinical signs of dehydration. Abdomen is soft, nontender. Laboratory values reveal a total bilirubin of 1.9, otherwise unremarkable. Will obtain ultrasound imaging of the right upper quadrant. Patient has vomited 1 time while under my care, reports that Zofran is helping, is willing to trial p.o. intake. Ultrasound read by radiology has no evidence of cholelithiasis or acute cholecystitis. Upon reevaluation patient has been able to tolerate p.o. intake without difficulty. No additional nausea or vomiting. Clinically she appears well, nontoxic. She is comfortable discharge. We discussed the importance of outpatient follow-up to her primary care provider for further evaluation of her ongoing symptoms. I will provide her a work note for today and a prescription for Zofran. She was given strict return precautions. Patient comfortable with this plan. Medical Records Medical records reviewed: Yes I reviewed the patient's medical records. Lab Data Lab results reviewed: Yes I reviewed the patient's lab results. Lab results narrative: 04/27/20 09:31 Urine - Reflex from Ua Urine Culture - Preliminary Gram Positive Nani,Mixed Laboratory Tests Range/Units 04/27/20 04/27/20 04/27/20 08:00 08:31 08:31 WBC (4.4-10.8) 10^3/uL 6.97 RBC (3.93-5.22) 10^6/uL 4.83 Hgb (11.2-15.7) g/dL 14.4 Hct (36.0-46.0) % 41.7 MCV (80-95) fL 86.3 MCH (27.0-33.0) pg 29.8 MCHC (32.0-36.0) % 34.5 RDW (11.7-14.6) % 12.2 Plt Count (130-400) 10^3/uL 355 MPV (8.0-11.0) fL 9.4 Immature Gran % 0.4 Neutrophils % 61.5 Lymphocytes % 27.5 Monocytes % 8.3 Eosinophils % 1.7 Basophils % 0.6 Nucleated RBC % % 0 Absolute Neutrophils (1.2-6.7) 10^3/uL 4.28 Absolute Lymphocytes (1.2-3.4) 10^3/uL 1.92 Absolute Monocytes (0.1-0.8) 10^3/uL 0.58 Absolute Eosinophils (0.0-0.7) 10^3/uL 0.12 Absolute Basophils (0.0-0.2) 10^3/uL 0.04 Sodium (136-145) mmol/L 142 Potassium (3.5-5.1) mmol/L 3.4 L Chloride (98-107) mmol/L 107 Carbon Dioxide (21.0-32.0) mmol/L 24.0 Anion Gap (3-11) mmol/L 11.0 BUN (7-18) mg/dL 11 Creatinine (0.55-1.02) mg/dL 0.9 Estimated GFR/1.73 m2 (mL/min/1.73m2) >= 60.00 Glucose (74-106) mg/dL 95 Calcium (8.5-10.1) mg/dL 8.7 Total Bilirubin (0.2-1.0) mg/dL 1.9 H AST (15-37) U/L 16 ALT (14-59) U/L 39 Alkaline Phosphatase (46-116) U/L 80 Total Protein (6.4-8.2) g/dL 7.8 Albumin (3.4-5.0) g/dL 4.3 Lipase (73-393) U/L 85 Urine Color (Yellow) [place] Urine Clarity (Clear) Clear Urine pH (5-8) 6.0 Ur Specific [place] (1.005-1.025) >= 1.030 H Urine Protein (Negative) mg/dL Trace H Urine Ketones (Negative) mg/dL Negative Urine Blood (Negative) Negative Urine Nitrite (Negative) Negative Urine Bilirubin (Negative) Color interference Urine Urobilinogen (Up TO 0.2) EU/dL 4.0 H Ur Leukocyte Esterase (Negative) Negative Urine RBC (0-2) HPF 0-2 Urine WBC (0-5) HPF 20-50 H Ur Epithelial Cells (Negative) HPF Moderate Urine Crystals (Negative) HPF Negative Urine Bacteria (Negative) HPF Many Urine Casts (Negative) LPF Negative Urine Mucus (Negative) Heavy Urine Other (Negative) Few renal Ur Culture Indicated? No/sq. contamination Urine Glucose (Negative) mg/dL Negative Range/Units 04/27/20 09:31 WBC (4.4-10.8) 10^3/uL RBC (3.93-5.22) 10^6/uL Hgb (11.2-15.7) g/dL Hct (36.0-46.0) % MCV (80-95) fL MCH (27.0-33.0) pg MCHC (32.0-36.0) % RDW (11.7-14.6) % Plt Count (130-400) 10^3/uL MPV (8.0-11.0) fL Immature Gran % Neutrophils % Lymphocytes % Monocytes % Eosinophils % Basophils % Nucleated RBC % % Absolute Neutrophils (1.2-6.7) 10^3/uL Absolute Lymphocytes (1.2-3.4) 10^3/uL Absolute Monocytes (0.1-0.8) 10^3/uL Absolute Eosinophils (0.0-0.7) 10^3/uL Absolute Basophils (0.0-0.2) 10^3/uL Sodium (136-145) mmol/L Potassium (3.5-5.1) mmol/L Chloride (98-107) mmol/L Carbon Dioxide (21.0-32.0) mmol/L Anion Gap (3-11) mmol/L BUN (7-18) mg/dL Creatinine (0.55-1.02) mg/dL Estimated GFR/1.73 m2 (mL/min/1.73m2) Glucose (74-106) mg/dL Calcium (8.5-10.1) mg/dL Total Bilirubin (0.2-1.0) mg/dL AST (15-37) U/L ALT (14-59) U/L Alkaline Phosphatase (46-116) U/L Total Protein (6.4-8.2) g/dL Albumin (3.4-5.0) g/dL Lipase (73-393) U/L Urine Color (Yellow) [place] Urine Clarity (Clear) Sl cloudy Urine pH (5-8) 6.5 Ur Specific [place] (1.005-1.025) >= 1.030 H Urine Protein (Negative) mg/dL Negative Urine Ketones (Negative) mg/dL 15 H Urine Blood (Negative) Negative Urine Nitrite (Negative) Negative Urine Bilirubin (Negative) Small H Urine Urobilinogen (Up TO 0.2) EU/dL 4.0 H Ur Leukocyte Esterase (Negative) Trace H Urine RBC (0-2) HPF 3-5 H Urine WBC (0-5) HPF 10-20 H Ur Epithelial Cells (Negative) HPF Few Urine Crystals (Negative) HPF Negative Urine Bacteria (Negative) HPF Few Urine Casts (Negative) LPF Negative Urine Mucus (Negative) Heavy Urine Other (Negative) Ur Culture Indicated? Yes Urine Glucose (Negative) mg/dL Negative HPI General Mode of arrival: ambulatory. Date/Time Provider Initiated Documentation: 04/27/20 07:58. Limitations to Documentation: no limitations. Information obtained by: patient. HPI Narrative: This is a 24-year-old female with past medical history of migraines, asthma, Nexplanon contraceptive, presenting to the ER today reporting nausea and vomiting intermittently for the past 2 weeks. She reports her symptoms are progressively getting worse. Her last episode of vomiting was just prior to arrival. She reports decreased p.o. intake in the past 24-48 hours. She had a similar episode around 6 months ago, at that time seen at the urgent care and diagnosed with a viral syndrome. Symptoms subsequently resolved completely. She states that after a vomiting episode she has difficulty catching her breath but at baseline has no difficulty breathing or chest pain. She denies any acute headache, fever, recent travel, bad food exposure, sick contacts, cough, back pain, abdominal pain, dysuria, hematuria, vaginal bleeding or discharge. She denies any skin rash. She has not been evaluated for this over the past 2 weeks. She has not tried any xvwz-znk-ozpxjbo medications for her symptoms. She states that she called out of work today and will need a work note for today. Related Data Home Medications Medication Instructions Recorded Confirmed acetaminophen [Tylenol] 650 mg PO PRN PRN #0 01/21/17 04/27/20 ibuprofen 600 mg PO Q6H PRN PRN #30 tab 01/21/17 04/27/20 etonogestrel 68 mg subdermal 1 implant SBD ONCE #1 each 03/20/19 04/27/20 implant Excedrin Extra Strength 2 tab PO PRN PRN 11/07/19 04/27/20 prochlorperazine maleate 5 mg 5 mg PO TID PRN #30 tab 12/14/19 04/27/20 tablet cephalexin [Keflex] 500 mg PO BID #10 cap 04/27/20 ondansetron HCl [Zofran] 4 mg PO Q8H PRN #10 tab 04/27/20 topiramate [Topamax] 50 mg PO HS 04/27/20 04/27/20 Previous Rx's Medication Instructions Recorded acetaminophen [Tylenol] 650 mg PO PRN PRN #0 01/21/17 ibuprofen 600 mg PO Q6H PRN PRN #30 tab 01/21/17 etonogestrel 68 mg subdermal 1 implant SBD ONCE #1 each 03/20/19 implant prochlorperazine maleate 5 mg 5 mg PO TID PRN #30 tab 12/14/19 tablet cephalexin [Keflex] 500 mg PO BID #10 cap 04/27/20 ondansetron HCl [Zofran] 4 mg PO Q8H PRN #10 tab 04/27/20 Allergies Allergy/AdvReac Type Severity Reaction Status Date / Time codeine AdvReac Intermediate hyper Verified 04/27/20 07:48 Melon AdvReac Unknown Hives Uncoded 04/27/20 07:48 General Stated Complaint: Nausea/Vomit/Diar KARO: 3 Review of Systems Constitutional Constitutional: Denies fatigue and Denies fever(s) ENT Ears, Nose, Mouth, and Throat: Denies neck pain Cardiovascular Cardiovascular: Denies chest pain and Denies dyspnea Respiratory Respiratory: Denies cough and Denies dyspnea Gastrointestinal Gastrointestinal: Denies abdominal pain, Denies constipation, Denies diarrhea, Reports nausea and Reports vomiting Genitourinary Genitourinary: Denies abnormal vaginal bleeding, Denies hematuria, Denies dysuria and Denies vaginal discharge Musculoskeletal Musculoskeletal: Denies back pain and Denies neck pain Integumentary/Breasts Skin/Breast: Denies rash Endocrine Endocrine: Denies fatigue [facility] Medical History Asthma Contraception (10/31/16) 2016. Nexplanon. 02/2019 removal and reinsertion Nexplanon. Encounter for removal and reinsertion of Nexplanon Migraine headache with aura Migraine headache without aura Strain of flexor digitorum superficialis tendon (09/25/19) Surgical History Biopsy, Soft Tissue (04/17/17) excision left lower extremity, melanocytic nevus S/P exploratory laparotomy w/ hernia repair Tonsillectomy and adenoidectomy (~2010) urachal cyst excision (01/21/17) Family History Mother Mental disorder anxiety Father Substance abuse Migraines chronic and disabled with O2 therpay for Other Diabetes MGM Migraines paternal side Neoplasm mat great aunt-blood Sister Asthma Sister Asthma Social History Smoking/Tobacco Use Status: Former Tobacco Use Smoking risk assessment performed?: Yes Alcohol Intake: former Drug use: Daily Substance use type: marijuana Household members: family Housing: house Number of Children: 0 Pets and animals: Yes Pets and animals: cat(s), dog(s), hamster(s) and iguana(s) Current gender identity: female What is your relationship status?: never Panel score (0-1 are the most socially isolated patients): 0 What type of physical activity do you participate in: none Seatbelt use: always Do you feel safe at home: Yes Do you feel safe in your relationship?: Yes Exam Const General: cooperative, healthy appearing, comfortable and no acute distress Orientation: alert, awake and oriented x3 HENMT Head: normal to inspection, normocephalic and atraumatic Face and sinus: normal facial exam Mouth: moist mucous membranes Throat: posterior oropharynx normal Eyes General: appearance normal, both eyes and all related structures Conjunctivae: conjunctivae normal Sclera: sclerae normal Neck Neck: normal visual inspection, full ROM, trachea midline and supple Resp Effort & Inspection: normal respiratory effort and able to speak in complete sentences Auscultation: clear to auscultation bilaterally Cardio Rate: regular rate Rhythm: regular rhythm GI Inspection: normal to inspection Palpation: soft, not firm, no guarding, no masses, no pulsatile masses and nontender Auscultation: normal bowel sounds Back/Spine/Pelvis Back: No back tenderness Skin General skin exam: no rashes or lesions noted Neuro General: patient alert, patient awake, moves all extremities and no focal motor deficits Cognition: normal cognition Speech: speech normal Gait: normal gait Sensory Exam: no sensory deficits noted Extrem General: normal to inspection and full ROM Psych Appearance: grossly normal Mental Status: mental status grossly normal Course Vital Signs Vital signs: Vital Signs Temperature 36.7 C 04/27/20 07:44 Pulse 85 04/27/20 07:44 Respiratory Rate 18 04/27/20 07:44 Blood Pressure 113/62 04/27/20 07:44 Pulse Oximetry 98 04/27/20 07:44 Temperature 36.7 C 04/27/20 07:44 Temperature Source Skin 04/27/20 07:44 Pulse 85 04/27/20 07:44 Respiratory Rate 18 04/27/20 07:44 Respiratory Effort Non-Labored 04/27/20 07:49 Blood Pressure 113/62 04/27/20 07:44 Blood Pressure Position Sitting 04/27/20 07:44 Pulse Oximetry 98 04/27/20 07:44 Oxygen Delivery Method Room Air 04/27/20 07:44 Oxygen Flow Rate 0 04/27/20 07:44 Pain Level 3 04/27/20 07:44
[2020-04-27 08:19] LABS: Blood Negative (Negative); Clarity Clear (Clear); Glucose Negative (Negative); Ketones Negative (Negative); Leukocyte Esterase Negative (Negative); Nitrite Negative (Negative); Specific Gravity >= 1.030 (1.005-1.025)
[2020-04-27 08:33] LABS: Bilirubin Color Interference (Negative)
[2020-04-27 08:34] LABS: Bacteria Many HPF (Negative); C & S Indicated? No/Sq. Contamination; Casts Negative LPF (Negative); Crystals Negative HPF (Negative); Epithelial Cells Moderate HPF (Negative); Mucus Heavy (Negative); Other Cells Few Renal (Negative); RBC 0-2 HPF (0-2); WBC 20-50 HPF (0-5)
[2020-04-27] MEDS: Ondansetron 4 MG/2 ML VIAL IVP (08:34)
[2020-04-27] MEDS: Normal Saline 1,000 ML 1000 ML IV (08:34)
[2020-04-27 08:54] LABS: ALT 39 U/L (14-59); AST 16 U/L (15-37); Albumin 4.3 g/dL (3.4-5.0); Alkaline Phosphatase 80 U/L (46-116); BUN 11 mg/dL (7-18); Bilirubin, Total 1.9 mg/dL (0.2-1.0); CREATININE 0.9 mg/dL (0.55-1.02); Calcium 8.7 mg/dL (8.5-10.1); Chloride 107 mmol/L (98-107); Glucose 95 mg/dL (74-106); Lipase 85 U/L (73-393); Potassium 3.4 mmol/L (3.5-5.1); Sodium 142 mmol/L (136-145); Total Protein 7.8 g/dL (6.4-8.2)
[2020-04-27 08:57] LABS: Abs Immature Grans 0.03 10^3/uL (0.0-0.06); Absolute Basophil Count 0.04 10^3/uL (0.0-0.2); Absolute Eosinophil Count 0.12 10^3/uL (0.0-0.7); Absolute Lymphocyte Count 1.92 10^3/uL (1.2-3.4); Absolute Monocyte Count 0.58 10^3/uL (0.1-0.8); Absolute Neutrophil Count 4.28 10^3/uL (1.2-6.7); Basophils % 0.6; Eosinophils % 1.7; HCT 41.7 % (36.0-46.0); HGB 14.4 g/dL (11.2-15.7); Immature Grans % 0.4; Lymphocytes % 27.5; MCH 29.8 pg (27.0-33.0); MCHC 34.5 % (32.0-36.0); MCV 86.3 fL (80-95); MPV 9.4 fL (8.0-11.0); Monocytes % 8.3; Neutrophils % 61.5; Nucleated RBC 0 %; Platelet Count 355 10^3/uL (130-400); RBC 4.83 10^6/uL (3.93-5.22); RDW 12.2 % (11.7-14.6); RDW-SD 38.8 fL; WBC 6.97 10^3/uL (4.4-10.8)
--- NOTE | 2020-04-27 09:00 | DI.US_ITS ---
EXAM: US ABDOMEN LIMITED CLINICAL HISTORY: N/V, bili of 1.9 TECHNIQUE: Ultrasound abdomen performed using standard protocol. Exam focused on gallbladder COMPARISON: US US ABDOMEN from 08/19/2018 FINDINGS: Gallbladder has a normal appearance. There is no abnormal gallbladder distension, stones or wall thi ckening. There is no evidence of biliary dilatation. The common bile duct measures 4 millimeters. The right kidney is normal in size and echogenicity. No stones or hydronephrosis is seen. There is no right upper quadrant fluid. IMPRESSION: No evidence of cholelithiasis or acute cholecystitis. DATA REPOSITORY:
[2020-04-27 09:42] LABS: Bilirubin Small (Negative); Blood Negative (Negative); Clarity Sl Cloudy (Clear); Glucose Negative (Negative); Ketones 15 mg/dL (Negative); Leukocyte Esterase Trace (Negative); Nitrite Negative (Negative); Specific Gravity >= 1.030 (1.005-1.025); pH 6.5 (5-8)
[2020-04-27 09:49] VITALS: BP 112/72; PULSE 65; RESP 16; TEMP 36.8; O2SAT 98
[2020-04-27 09:56] LABS: Bacteria Few HPF (Negative); C & S Indicated? Yes; Casts Negative LPF (Negative); Crystals Negative HPF (Negative); Epithelial Cells Few HPF (Negative); Mucus Heavy (Negative)
== END 2020-04-27 10:26 | disposition home or self-care (01) ==
PROVIDERS: Emergency Provider Physician Assistant; PCP Nurse Practitioner Family
DX: N39.0 Urinary tract infection, site not specified (principal); R11.2 Nausea with vomiting, unspecified
CPT/HCPCS: 36415; 80053; 81025; 83690; 96361; 96374; 99284; 76705; 81003; 81015; 85025; 87086; J2405

== ENCOUNTER 2020-05-08 21:41 | Outpatient (REF) | payer MEDICAID, SELFPAY ==
[2020-05-08 14:52] LABS: Bilirubin, Direct 0.28 mg/dL (0.00-0.20); Bilirubin, Total 1.9 mg/dL (0.2-1.0); TSH (W/Ref FT4) 1.04 uIU/mL (0.36-3.74)
[2020-05-10 12:35] LABS: Salmon IgE <0.35 kU/L
== END 2020-05-08 21:42 | disposition home or self-care (01) ==
LOC: NCHCN 21:41
PROVIDERS: PCP Nurse Practitioner Family; Visit Provider Nurse Practitioner Family
DX: E80.7 Disorder of bilirubin metabolism, unspecified (principal); R19.7 Diarrhea, unspecified
CPT/HCPCS: 82247; 82248; 84443; 86003

== ENCOUNTER 2020-05-10 18:16 | Outpatient (REF) | payer MEDICAID, SELFPAY ==
[2020-05-10 18:39] LABS: C Diff PCR Negative (Negative)
[2020-05-11 11:58] LABS: Campylobacter PCR Negative (Negative); Salmonella PCR Negative (Negative); Shiga Toxin PCR Negative (Negative); Shigella/Enteroinvasive Ecoli Negative (Negative)
== END 2020-05-10 18:17 | disposition home or self-care (01) ==
LOC: NCHCN 18:16
PROVIDERS: PCP Nurse Practitioner Family; Visit Provider Nurse Practitioner Family
DX: R19.7 Diarrhea, unspecified (principal)
CPT/HCPCS: 87329; 87493; 87505

== ENCOUNTER 2020-06-29 15:00 | Outpatient (CLI) | payer MEDICAID, SELFPAY ==
--- NOTE | 2020-06-29 | DI.RAD_ITS ---
EXAM: XR HAND RT COMPLETE and XR wrist RT complete with navicular CLINICAL HISTORY: RT THUMB PAIN, M79.644, INCLUDE SCAPHOID VIEWS. TECHNIQUE: 2D digital imaging was performed. COMPARISON: CR XR hand RT complete from 08/15/2018 FINDINGS: BONES: No acute fracture is present. No bony destructive lesion is seen. JOINTS: No dislocation present. SOFT TISSUE: Normal. IMPRESSION: Unremarkable radiographs of the right wrist and hand. DATA REPOSITORY: RADIATION DOSE DELIVERED:
== END 2020-06-29 15:20 ==
PROVIDERS: PCP Nurse Practitioner Family; Visit Provider Physician Assistant Medical
DX: M25.531 Pain in right wrist (principal); M79.641 Pain in right hand; M79.644 Pain in right finger(s)
CPT/HCPCS: 73110; 73130

== ENCOUNTER 2020-12-19 12:53 | Emergency (ER) | payer MEDICAID, SELFPAY ==
[2020-12-19 13:01] VITALS: BP 136/72; PULSE 122; RESP 16; TEMP 36.4; O2SAT 98
--- NOTE | 2020-12-19 13:15 | W.ED.GENAD ---
Discharge Plan Disposition Patient Disposition: HOME Condition: Improving Discharge Details Clinical Impression: Umbilicus discharge Primary Care Provider: Deyanira Torres ED Provider: John Saba Home Meds and New Rx's Prescriptions: Continued Nexplanon 68 mg implant 1 implant SBD ONCE Qty: 1 RF: 0 prochlorperazine maleate 5 mg tablet 5 mg PO TID PRN (Reason: headache) Qty: 30 RF: 3 topiramate [Topamax] 25 mg tablet 25 mg PO QHS Qty: 30 RF: 3 hydroxyzine HCl 25 mg tablet See Rx Instructions PO QID PRN (Reason: headaches) Qty: 60 RF: 2 topiramate [Topamax] 50 mg tablet 50 mg PO HS RF: 0 ibuprofen 600 MG tablet 600 mg PO Q6H PRN PRNQty: 30 RF: 1 acetaminophen [Tylenol] 325 MG tablet 650 mg PO PRN PRNQty: 0 RF: 0 Excedrin Extra Strength 250-250-65 mg Tablet 2 tab PO PRN PRNRF: 0 Discharge Instructions Additional Instructions: Home to rest today. Apply bacitracin to area 2-3 times daily. Our care management team will arrange a follow-up for you in surgery clinic. Return if you develop a fever, persistent foul-smelling discharge, or any other acute concerns Medical Decision Making This is a 25-year-old female who had brief and transient bloody drainage from her umbilicus today. She became anxious after this occurred given that she had repair of a urachal cyst [place] [address] Hugo. Patient states she has had intermittent drainage since that time, but no bloody drainage. She has not had a fever or abdominal pain. I probed the umbilicus gently with no evidence of abscess, nor persistent bleeding. There is some slightly raw skin which was coated with bacitracin. I will have her continue the bacitracin twice daily and follow-up with Dr. Hugo in the clinic for recheck. Most likely this is mild skin irritation. HPI General Mode of arrival: ambulatory. Date/Time Provider Initiated Documentation: 12/19/20 13:02. Limitations to Documentation: no limitations. Information obtained by: patient. History of Present Illness 25 year old F presents to the emergency department with the chief complaint of Umbilical drainage, bloody, described as similar to prior episodes, and is localized to the abdomen. Patient reports no radiation. Patient started experiencing this minute(s) and it has been now resolved. No relieving factors improve symptom(s), Patient notes denies fever/chills, loss of appetite and nausea/vomiting. Patient did receive the following treatments prior to arrival, none Related Data Home Medications Medication Instructions Recorded Confirmed acetaminophen [Tylenol] 650 mg PO PRN PRN #0 01/21/17 12/19/20 ibuprofen 600 mg PO Q6H PRN PRN #30 tab 01/21/17 12/19/20 etonogestrel 68 mg subdermal 1 implant SBD ONCE #1 each 03/20/19 12/19/20 implant Excedrin Extra Strength 2 tab PO PRN PRN 11/07/19 12/19/20 prochlorperazine maleate 5 mg 5 mg PO TID PRN #30 tab 12/14/19 12/19/20 tablet topiramate [Topamax] 50 mg PO HS 04/27/20 12/19/20 hydroxyzine HCl 25 mg tablet See Rx Instructions PO QID PRN #60 08/07/20 12/19/20 tab topiramate 25 mg tablet 25 mg PO QHS #30 tab 08/07/20 12/19/20 Previous Rx's Medication Instructions Recorded acetaminophen [Tylenol] 650 mg PO PRN PRN #0 01/21/17 ibuprofen 600 mg PO Q6H PRN PRN #30 tab 01/21/17 etonogestrel 68 mg subdermal 1 implant SBD ONCE #1 each 03/20/19 implant prochlorperazine maleate 5 mg 5 mg PO TID PRN #30 tab 12/14/19 tablet hydroxyzine HCl 25 mg tablet See Rx Instructions PO QID PRN #60 08/07/20 tab topiramate 25 mg tablet 25 mg PO QHS #30 tab 08/07/20 Allergies Allergy/AdvReac Type Severity Reaction Status Date / Time codeine AdvReac Intermediate hyper Verified 08/07/20 08:37 gluten Allergy Uncoded 12/19/20 13:07 Melon AdvReac Unknown Hives Uncoded 08/07/20 08:37 General Stated Complaint: Abd Prob KARO: 3 Review of Systems Narrative: No fever, vomiting, no persistent drainage. [facility] Medical History Asthma Contraception (10/31/16) 2016. Nexplanon. 02/2019 removal and reinsertion Nexplanon. Encounter for removal and reinsertion of Nexplanon Migraine headache with aura Migraine headache without aura Strain of flexor digitorum superficialis tendon (09/25/19) Surgical History Biopsy, Soft Tissue (04/17/17) excision left lower extremity, melanocytic nevus S/P exploratory laparotomy w/ hernia repair Tonsillectomy and adenoidectomy (~2010) urachal cyst excision (01/21/17) Family History Mother Mental disorder anxiety Father Substance abuse Migraines chronic and disabled with O2 therpay for Other Diabetes MGM Migraines paternal side Neoplasm mat great aunt-blood Sister Asthma Sister Asthma Social History Smoking/Tobacco Use Status: Former Tobacco Use Smoking risk assessment performed?: Yes Alcohol Intake: former Drug use: Daily Substance use type: marijuana Household members: family Housing: house Number of Children: 0 Pets and animals: Yes Pets and animals: cat(s), dog(s), hamster(s) and iguana(s) Current gender identity: female What is your relationship status?: never Panel score (0-1 are the most socially isolated patients): 0 What type of physical activity do you participate in: none Seatbelt use: always Do you feel safe at home: Yes Do you feel safe in your relationship?: Yes Exam Narrative Exam Narrative: GEN: awake, alert, oriented 3. Pleasant, well groomed, interactive. HEAD: Normocephalic, atraumatic ENT: Mucous membranes moist, oropharynx unremarkable, External ear exam unremarkable EYES: PERRL, EOMI NECK: Full ROM, no TERRI, no menigismus CHEST/RESP: No respiratory distress ABDOMEN: Soft, nontender, no mass. Scant dried blood at umbilicus, nontender, no surrounding erythema EXT: Full ROM, no edema, no rash Neuro: Grossly normal neurologic exam, conversant, interactive. Psych: Speech fluent, thoughts congruent, affect normal Course Vital Signs Vital signs: Vital Signs Temperature 36.4 C L 12/19/20 13:01 Pulse 122 H 12/19/20 13:01 Respiratory Rate 16 12/19/20 13:01 Blood Pressure 136/72 12/19/20 13:01 Pulse Oximetry 98 12/19/20 13:01 Temperature 36.4 C L 12/19/20 13:01 Temperature Source Skin 12/19/20 13:01 Pulse 122 H 12/19/20 13:01 Respiratory Rate 16 12/19/20 13:01 Respiratory Effort 12/19/20 13:01 Blood Pressure 136/72 12/19/20 13:01 Blood Pressure Position Sitting 12/19/20 13:01 Pulse Oximetry 98 12/19/20 13:01 Oxygen Delivery Method Room Air 12/19/20 13:01 Oxygen Flow Rate 0 12/19/20 13:01 Pain Level 0 12/19/20 13:01
--- NOTE | 2020-12-19 13:16 | NUR.NOTE ---
Nursing Note: Referral [facility] for recheck urachal cyst, in 1 week. Sonal Malik
== END 2020-12-19 13:37 | disposition home or self-care (01) ==
PROVIDERS: Emergency Provider Emergency Medicine; PCP Nurse Practitioner Family
DX: L08.82 Omphalitis not of newborn (principal)
CPT/HCPCS: 99282

== ENCOUNTER 2021-02-06 20:28 | Outpatient (REF) | payer MEDICAID, SELFPAY ==
[2021-02-06 21:01] LABS: Bilirubin, Direct 0.2 mg/dL (0.0-0.2)
== END 2021-02-06 20:29 | disposition home or self-care (01) ==
LOC: NCHCN 20:28
PROVIDERS: PCP Nurse Practitioner Family; Visit Provider Nurse Practitioner Family
DX: E80.7 Disorder of bilirubin metabolism, unspecified (principal)
CPT/HCPCS: 82247; 82248

== ENCOUNTER 2021-02-22 00:32 | Outpatient (CLI) | payer MEDICAID, SELFPAY ==
--- NOTE | 2021-02-22 13:45 | DI.US_ITS ---
Exam(s) US BREAST RT COMPLETE EXAM: US BREAST RT COMPLETE CLINICAL HISTORY: LUMP IN RT BREAST LOWER INNER QUAD N63.14 TECHNIQUE: Ultrasound right breast performed using standard protocol. COMPARISON: No exams were available for comparison FINDINGS: All 4 quadrants of the right breast were evaluated sonographically including the left axilla and retr oareolar region according to protocol. Two simple cysts are seen in the right breast. There is a 2. 5 x 1.4 x 4.4 mm cyst at the 8 o'clock position 4 cm from the nipple. There is a 2.6 x 1.2 x 3.5 mm cyst at the 11 o'clock position 2 cm from the nipple. There is a benign-appearing lymph node in the right axilla. IMPRESSION: 1. Small simple cysts in the right breast as described above. 2. No sonographically suspicious masses. 3. Findings were discussed with the patient. BI-RADS Category 2 - Benign Findings DATA REPOSITORY:
== END 2021-02-22 00:52 ==
PROVIDERS: PCP Nurse Practitioner Family; Visit Provider Nurse Practitioner Family
DX: N63.14 Unspecified lump in the right breast, lower inner quadrant (principal); N60.11 Diffuse cystic mastopathy of right breast
CPT/HCPCS: 76642

== ENCOUNTER 2021-04-20 12:16 | Emergency (ER) | payer MEDICAID, SELFPAY ==
[2021-04-20 12:22] VITALS: BP 114/74; PULSE 82; RESP 18; TEMP 36.5; O2SAT 96
--- NOTE | 2021-04-20 12:54 | ED.GENADUL_ITS ---
Discharge Plan Disposition Patient Disposition: HOME Condition: Improving Discharge Details Clinical Impression: Vomiting Primary Care Provider: Deyanira Torres ED Provider: John Saba Home Meds and New Rx's Prescriptions: Continued Nexplanon 68 mg implant 1 implant SBD ONCE Qty: 1 RF: 0 prochlorperazine maleate 5 mg tablet 5 mg PO TID PRN (Reason: headache) Qty: 30 RF: 3 topiramate [Topamax] 25 mg tablet 25 mg PO QHS Qty: 30 RF: 3 hydroxyzine HCl 25 mg tablet See Rx Instructions PO QID PRN (Reason: headaches) Qty: 60 RF: 2 topiramate [Topamax] 50 mg tablet 50 mg PO HS RF: 0 ibuprofen 600 MG tablet 600 mg PO Q6H PRN PRNQty: 30 RF: 1 acetaminophen [Tylenol] 325 MG tablet 650 mg PO PRN PRNQty: 0 RF: 0 Excedrin Extra Strength 250-250-65 mg Tablet 2 tab PO PRN PRNRF: 0 Discharge Instructions Additional Instructions: Home to rest today. Small, frequent sips of fluids a bit to maintain good hydration. Continue your routine medications. Return to the emergency department for any acute concerns. Medical Decision Making 25-year-old female presents from home with complaint of 4 days of nausea and vomiting. She states similar to previous, and that she has tentatively been diagnosed with a gluten intolerance. She states she has follow-up with gastroenterology at [facility] this coming week for an upper endoscopy. Patient arrives to the ER alert and interactive with normal vital signs. She has discrete tenderness in her epigastrium without rebound or guarding. Differential diagnosis includes functional abdominal pain, abdominal migraine, dehydration, electrolyte abnormality, gastritis. Patient IV access established, given fluids, Phenergan, PPI. Laboratories note a white count of 4, hematocrit 47, platelets 242. Sodium 143, potassium 3.4, chloride 106, by 24, BUN 14, creatinine 0.9. Lipase 88. Urinalysis contaminated. Patient improved and was able to tolerate liquids by mouth. She felt subjectively better. She is stable and appropriate for discharge to home. HPI General Mode of arrival: ambulatory . Date/Time Provider Initiated Documentation: 04/20/21 12:16 . Limitations to Documentation: no limitations . Information obtained by: patient . History of Present Illness 25 year old F presents to the emergency department with the chief complaint of Nausea and vomiting for 4 days, described as moderate and similar to prior episodes, and is localized to the abdomen. Patient reports no radiation. Patient started experiencing this day(s) and it has been intermittent. No relieving factors improve symptom(s), Eating worsens symptoms . Patient notes loss of appetite; denies fever/chills, headaches, shortness of breath, syncope and weakness. Related Data Home Medications Medication Instructions Recorded Confirmed acetaminophen [Tylenol] 650 mg PO PRN PRN #0 01/21/17 04/20/21 ibuprofen 600 mg PO Q6H PRN PRN #30 tab 01/21/17 04/20/21 etonogestrel 68 mg subdermal 1 implant SBD ONCE #1 each 03/20/19 04/20/21 implant Excedrin Extra Strength 2 tab PO PRN PRN 11/07/19 04/20/21 prochlorperazine maleate 5 mg 5 mg PO TID PRN #30 tab 12/14/19 04/20/21 tablet topiramate [Topamax] 50 mg PO HS 04/27/20 04/20/21 hydroxyzine HCl 25 mg tablet See Rx Instructions PO QID PRN #60 08/07/20 04/20/21 tab topiramate 25 mg tablet 25 mg PO QHS #30 tab 08/07/20 04/20/21 Previous Rx's Medication Instructions Recorded acetaminophen [Tylenol] 650 mg PO PRN PRN #0 01/21/17 ibuprofen 600 mg PO Q6H PRN PRN #30 tab 01/21/17 etonogestrel 68 mg subdermal 1 implant SBD ONCE #1 each 03/20/19 implant prochlorperazine maleate 5 mg 5 mg PO TID PRN #30 tab 12/14/19 tablet hydroxyzine HCl 25 mg tablet See Rx Instructions PO QID PRN #60 08/07/20 tab topiramate 25 mg tablet 25 mg PO QHS #30 tab 08/07/20 Allergies Allergy/AdvReac Type Severity Reaction Status Date / Time codeine AdvReac Intermediate hyper Verified 04/20/21 12:29 gluten Allergy Uncoded 04/20/21 12:29 Melon AdvReac Unknown Hives Uncoded 04/20/21 12:29 General Stated Complaint: Nausea/Vomit/Diar KARO: 3 Review of Systems Narrative: Denies dark or bloody stool. Has follow-up with GI at [facility] for this coming week. 8 systems reviewed and otherwise negative PFSH All Active Problems (Updated 04/20/21 @ 15:20 by John Saba MD) Umbilicus discharge (Acute) Vomiting (Acute) Medication overuse headache (Acute) Migraine headache without aura (Acute) Migraine headache with aura (Acute) Encounter for removal and reinsertion of Nexplanon (Acute) Contraception (Acute 10/31/16) 2015. Nexplanon. 02/2019 removal and reinsertion Nexplanon. Migraine, unspecified, not intractable, without status migrainosus (Acute 04/10/16) Medical History Asthma Strain of flexor digitorum superficialis tendon (09/25/19) Surgical History Biopsy, Soft Tissue (04/17/17) excision left lower extremity, melanocytic nevus S/P exploratory laparotomy w/ hernia repair Tonsillectomy and adenoidectomy (~2010) urachal cyst excision (01/21/17) Family History Mother Mental disorder anxiety Father Substance abuse Migraines chronic and disabled with O2 therpay for Other Diabetes MGM Migraines paternal side Neoplasm mat great aunt-blood Sister Asthma Sister Asthma Social History Smoking/Tobacco Use Status: Former Tobacco Use Smoking risk assessment performed?: Yes Alcohol Intake: former Drug use: Daily Substance use type: marijuana Details: 04/20/21--no marijuana past 4 days Household members: family Housing: house Number of Children: 0 Pets and animals: Yes Pets and animals: cat(s), dog(s), hamster(s) and iguana(s) Current gender identity: female What is your relationship status?: never Panel score (0-1 are the most socially isolated patients): 0 What type of physical activity do you participate in: none Seatbelt use: always Do you feel safe at home: Yes Do you feel safe in your relationship?: Yes Exam Narrative Exam Narrative: GEN: awake, alert, oriented 3. Pleasant, well groomed, interactive. HEAD: Normocephalic, atraumatic ENT: Mucous membranes moist, oropharynx unremarkable, External ear exam unremarkable EYES: PERRL, EOMI NECK: Full ROM, no TERRI, no menigismus CHEST/RESP: Nontender, clear to auscultation bilateral, no wheeze/rhonchi/rales CARDIOVASCULAR: RRR, no murmur, rub peace. 2+ Rad pulse bilateral ABDOMEN: Soft, tender epigastrium without rebound or guarding, no mass. +Bowel sounds EXT: Full ROM, no edema, no rash Neuro: Grossly normal neurologic exam, conversant, interactive. Psych: Speech fluent, thoughts congruent, affect normal Course Vital Signs Vital signs: Vital Signs Temperature 36.5 C 04/20/21 12:22 Pulse 82 04/20/21 12:22 Respiratory Rate 18 04/20/21 12:22 Blood Pressure 114/74 04/20/21 12:22 Pulse Oximetry 96 04/20/21 12:22 Temperature 36.5 C 04/20/21 12:22 Temperature Source Oral 04/20/21 12:22 Pulse 82 04/20/21 12:22 Respiratory Rate 18 04/20/21 12:22 Respiratory Effort Non-Labored 04/20/21 12:27 Blood Pressure 114/74 04/20/21 12:22 Blood Pressure Position Supine 04/20/21 12:22 Pulse Oximetry 96 04/20/21 12:22 Oxygen Delivery Method Room Air 04/20/21 12:22 Oxygen Flow Rate 0 04/20/21 12:22 Pain Level 0 04/20/21 12:22
[2021-04-20] MEDS: Normal Saline 1,000 ML 1000 ML IV (13:02)
[2021-04-20 13:17] LABS: Abs Immature Grans 0.03 10^3/uL (0.0-0.06); Absolute Basophil Count 0.02 10^3/uL (0.0-0.2); Absolute Eosinophil Count 0.04 10^3/uL (0.0-0.7); Absolute Lymphocyte Count 1.57 10^3/uL (1.2-3.4); Absolute Neutrophil Count 2.03 10^3/uL (1.2-6.7); Basophils % 0.5; HCT 47.3 % (36.0-46.0); HGB 15.6 g/dL (11.2-15.7); Immature Grans % 0.7; Lymphocytes % 38.4; MCH 29.2 pg (27.0-33.0); MCV 88.6 fL (80-95); MPV 9.5 fL (8.0-11.0); Monocytes % 9.8; Neutrophils % 49.6; Nucleated RBC 0 %; Platelet Count 242 10^3/uL (130-400); RBC 5.34 10^6/uL (3.93-5.22); RDW 12.3 % (11.7-14.6); RDW-SD 39.8 fL; WBC 4.09 10^3/uL (4.4-10.8)
[2021-04-20] MEDS: Ondansetron 4 MG/2 ML VIAL IVP (13:25)
[2021-04-20 13:30] LABS: Bilirubin Small (Negative); Blood Negative (Negative); Clarity Clear (Clear); Glucose Negative (Negative); Ketones 15 mg/dL (Negative); Leukocyte Esterase Small (Negative); Nitrite Negative (Negative); Specific Gravity >= 1.030 (1.005-1.025)
[2021-04-20] MEDS: Pantoprazole 40 MG VIAL IVP (13:30)
[2021-04-20 13:34] LABS: ALT 86 U/L (14-59); AST 33 U/L (15-37); Albumin 4.5 g/dL (3.4-5.0); Alkaline Phosphatase 81 U/L (46-116); Anion Gap 12.8 mmol/L (3-11); BUN 14 mg/dL (7-18); CO2 24.2 mmol/L (21.0-32.0); CREATININE 0.9 mg/dL (0.55-1.02); Calcium 9.1 mg/dL (8.5-10.1); Chloride 106 mmol/L (98-107); Glucose 87 mg/dL (74-106); Lipase 88 U/L (73-393); Magnesium 1.9 mg/dL (1.8-2.4); Potassium 3.4 mmol/L (3.5-5.1); Sodium 143 mmol/L (136-145); Total Protein 8.1 g/dL (6.4-8.2)
[2021-04-20 13:37] LABS: Bacteria Moderate HPF (Negative); C & S Indicated? No/Sq. Contamination; Casts Negative LPF (Negative); Crystals Negative HPF (Negative); Epithelial Cells Many HPF (Negative); Mucus Heavy (Negative); RBC 0-2 HPF (0-2); WBC 20-50 HPF (0-5)
[2021-04-20 15:35] VITALS: BP 100/63; PULSE 74; RESP 12; TEMP 36.5; O2SAT 96
[2021-04-20] MEDS: Ondansetron O.D.T. 4 MG TABEF, 3 TABS/BTL PO (15:38)
[2021-04-20 15:56] VITALS: BP 100/63; PULSE 74; RESP 12; TEMP 36.5; O2SAT 96
== END 2021-04-20 15:45 | disposition home or self-care (01) ==
PROVIDERS: Emergency Provider Emergency Medicine; PCP Nurse Practitioner Family
DX: R11.2 Nausea with vomiting, unspecified (principal)
CPT/HCPCS: 36415; 80053; 81025; 83690; 96361; 96365; 96366; 96375; 99284; 81003; 81015; 83735; 85025; 99283; J2405

== ENCOUNTER 2021-05-16 17:48 | Outpatient (REF) | payer MEDICAID, SELFPAY ==
[2021-05-16 14:29] LABS: Abs Immature Grans 0.02 10^3/uL (0.0-0.06); Absolute Basophil Count 0.04 10^3/uL (0.0-0.2); Absolute Eosinophil Count 0.13 10^3/uL (0.0-0.7); Absolute Lymphocyte Count 2.03 10^3/uL (1.2-3.4); Absolute Monocyte Count 0.48 10^3/uL (0.1-0.8); Basophils % 0.6; HGB 13.9 g/dL (11.2-15.7); Immature Grans % 0.3; Lymphocytes % 30.8; MCH 29.5 pg (27.0-33.0); MCHC 32.3 % (32.0-36.0); MCV 91.3 fL (80-95); MPV 9.7 fL (8.0-11.0); Monocytes % 7.3; Nucleated RBC 0 %; Platelet Count 326 10^3/uL (130-400); RBC 4.71 10^6/uL (3.93-5.22); RDW 12.4 % (11.7-14.6); RDW-SD 41.9 fL
[2021-05-16 14:38] LABS: ESR 15 mm/hr (0-20)
[2021-05-16 14:58] LABS: C-Reactive Protein 0.22 mg/dL (0.0-0.3); TSH (W/Ref FT4) 1.08 uIU/mL (0.36-3.74)
[2021-05-17 09:55] LABS: IgG 871 mg/dL (610-1,616)
[2021-05-17 10:50] LABS: HIV-1/2 Ag & Ab Screen Negative (Negative)
[2021-05-17 14:04] LABS: ANA Interpretation Negative (Negative)
[2021-05-17 14:47] LABS: Hepatitis C Ab w Rflx HCV PCR Negative (Negative)
[2021-05-18 13:04] LABS: Smooth Muscle Ab Screen Negative (Negative)
== END 2021-05-16 17:49 | disposition home or self-care (01) ==
LOC: NCHCN 17:48
PROVIDERS: PCP Nurse Practitioner Family; Visit Provider Nurse Practitioner Family
DX: R63.4 Abnormal weight loss (principal); Z11.4 Encounter for screening for human immunodeficiency virus [HIV]; Z11.59 Encounter for screening for other viral diseases
CPT/HCPCS: 82784; 85652; 86803; 87389; 84443; 85025; 86038; 86140; 86255

== ENCOUNTER 2021-10-12 19:56 | Emergency (ER) | payer MEDICAID, SELFPAY ==
--- NOTE | 2021-10-12 20:00 | DI.CT_ITS ---
Exam(s) CT RENAL COLIC WO EXAM: CT RENAL COLIC WO INDICATION: left flank pain. COMPARISON: CT CT ABDOMEN PELVIS W from 07/19/2018 TECHNIQUE: CT examination was performed without contrast administration. FINDINGS: Images obtained through the lung bases show predominantly clear lungs with question of minimal perip heral ground glass opacities, please correlate regarding any possible pneumonitis period. Visualized portions of the liver and spleen appear intact. Visualized portions of the pancreas are unremarkable. Gallbladder and bile ducts are CT normal. Abdominal aorta is of normal diameter. No significant abdominal wall hernia. No significant abdominal or pelvic adenopathy. Adrenals appear normal bilaterally. The kidneys are normal in size and shape. There is no evidence of a renal mass, hydronephrosis, or n ephrolithiasis. There may be subtle left ureteral dilatation. There is a 3 millimeter in diameter calculus located i n the expected location of the knee left ureter at the level of the left femoral head. Note is also made of a tiny calcification which could be associated with the urethra. Urinary bladder is unremark able in appearance. IMPRESSION: Possible minimally obstructing or nonobstructing distal left ureteral calculus, additional evaluation with CT urogram could be obtained if clinically indicated. Possible urethral calculus may also be p resent. Minimal peripheral pulmonary ground-glass opacities, please correlate regarding any possibility of pn eumonitis. RADIATION DOSE DELIVERED: 587.44mGy.cm DLP 587.44mGy.cm Total DLP !Error CTDIvol RADIATION OPTIMIZATION: All CT scans at this facility use at least one of these dose optimization te chniques: automated exposure control; mA and/or kV adjustment per patient size (includes targeted exa ms where dose is matched to clinical indication); or iterative reconstruction.
[2021-10-12 20:03] VITALS: BP 128/79; PULSE 67; RESP 18; TEMP 36.6; O2SAT 99
--- NOTE | 2021-10-12 20:12 | ED.GENADUL_ITS ---
Discharge Plan Disposition Patient Disposition: HOME Condition: Stable Discharge Details Clinical Impression: Kidney stone Primary Care Provider: Deyanira Torres ED Provider: Anup Hunt Home Meds and New Rx's Prescriptions: Continued Nexplanon 68 mg implant 1 implant SBD ONCE Qty: 1 0RF Rx Instructions: as a single dose prochlorperazine maleate 5 mg tablet 5 mg PO TID PRN (Reason: headache) Qty: 30 3RF topiramate [Topamax] 25 mg tablet 25 mg PO QHS Qty: 30 3RF Rx Instructions: Take in addition to the 50 mg tab for a total dose of 75 mg HS. hydroxyzine HCl 25 mg tablet See Rx Instructions PO QID PRN (Reason: headaches) Qty: 60 2RF Rx Instructions: 25-50 mg PO four times a day PRN; topiramate [Topamax] 50 mg tablet 50 mg PO HS ibuprofen 600 MG tablet 600 mg PO Q6H PRN PRNQty: 30 1RF acetaminophen [Tylenol] 325 MG tablet 650 mg PO PRN PRNQty: 0 0RF Excedrin Extra Strength 250-250-65 mg Tablet 2 tab PO PRN PRN sertraline 50 mg tablet 1 tab PO DAILY Label Comments: TAKE ONE TABLET BY MOUTH EVERY DAY Discharge Instructions Instructions: Kidney Stones (ED) Additional Instructions: you should be contacted with an appointment to see urology if you feel more ill, have severe worsening pain, or fevers return to the emergency department Medical Decision Making 26 yo female who denies chronic medical problems comes in with chief complaint of left flank pain. She states it started suddenly 2 days ago, resolved and returned tonight. Denies any chest pain, fevers, chills, vaginal bleeding or discharge. She has never had pain like this in the past. Hasn't taken anything for her pain. She localizes the pain to her left mid back and also oblique area. She hasa soft nontender abdomen and no cva tenderness. Given location of pain will obtain cbc, and ua along with ct renal colic to evaluate for kidney stone and also pyelo. patient's ct shows a passed kidney stone and one in the ureter, she has no pain now and no symptoms. CT also shows ground glass opacities concerning for possible covid, she states she gets tested at work twice weekly and was negative and has no symptoms. Will obtain send out covid test. She is stable for d/c and will place on f/u list to see urology cherelle, return precautions given Differential Diagnosis Differential Diagnosis: kidney stone, pyelo Imaging Data Radiologic Study: Attestation: I personally reviewed and interpreted this imaging study as follows: Imaging: CT Scan Radiologist's impression: IMPRESSION: 1. A partially obstructive calculus in the distal left ureter, level of the acetabulum. 2. A 2nd calculus is visualized in the urethra with a decompressed bladder. 3. Mild nephrocalcinosis. 4. Mild bibasilar atelectasis versus peripheral pneumonitis such as COVID-19 Lab Data Lab results reviewed: Yes I reviewed the patient's lab results. HPI General Mode of arrival: ambulatory . Date/Time Provider Initiated Documentation: 10/12/21 19:59 . Limitations to Documentation: no limitations . Information obtained by: patient . History of Present Illness 26 year old F presents to the emergency department with the chief complaint of left flank pain, described as moderate, Patient reports no radiation. Patient started experiencing this day(s) (2) and it has been intermittent. No relieving factors improve symptom(s), No exacerbating factors reported . Patient notes no other symptoms.. Patient did receive the following treatments prior to arrival, none Related Data Home Medications Medication Instructions Recorded Confirmed acetaminophen 325 mg tablet 650 mg PO PRN PRN ##0 01/21/17 04/20/21 (Tylenol) ibuprofen 600 mg tablet 600 mg PO Q6H PRN PRN #30 tabs 01/21/17 04/20/21 etonogestrel 68 mg subdermal 1 implant subdermal ONCE #1 ea 03/20/19 04/20/21 implant (Nexplanon) [id number] 250 2 tab PO PRN PRN 11/07/19 04/20/21 mg-250 mg-65 mg tablet (Excedrin Extra Strength) prochlorperazine maleate 5 mg 5 mg PO TID PRN headache #30 tabs 12/14/19 04/20/21 tablet topiramate 50 mg tablet (Topamax) 50 mg PO HS 04/27/20 04/20/21 hydroxyzine HCl 25 mg tablet See Rx Instructions PO QID PRN 08/07/20 04/20/21 headaches #60 tabs topiramate 25 mg tablet (Topamax) 25 mg PO QHS #30 tabs 08/07/20 04/20/21 sertraline 50 mg tablet 1 tab PO DAILY 10/12/21 10/12/21 Previous Rx's Medication Instructions Recorded acetaminophen 325 mg tablet 650 mg PO PRN PRN ##0 01/21/17 (Tylenol) ibuprofen 600 mg tablet 600 mg PO Q6H PRN PRN #30 tabs 01/21/17 etonogestrel 68 mg subdermal 1 implant subdermal ONCE #1 ea 03/20/19 implant (Nexplanon) prochlorperazine maleate 5 mg 5 mg PO TID PRN headache #30 tabs 12/14/19 tablet hydroxyzine HCl 25 mg tablet See Rx Instructions PO QID PRN 08/07/20 headaches #60 tabs topiramate 25 mg tablet (Topamax) 25 mg PO QHS #30 tabs 08/07/20 Allergies Allergy/AdvReac Type Severity Reaction Status Date / Time codeine AdvReac Intermediate hyper Verified 04/20/21 12:29 gluten Allergy Uncoded 04/20/21 12:29 Melon AdvReac Unknown Hives Uncoded 04/20/21 12:29 General Stated Complaint: FlankPain KARO: 3 Review of Systems All systems reviewed & are unremarkable except as noted in HPI and below Constitutional Constitutional: Denies chills, Denies fever(s) and Denies weakness Cardiovascular Cardiovascular: Denies chest pain and Denies dyspnea Respiratory Respiratory: Denies cough and Denies dyspnea Gastrointestinal Gastrointestinal: Denies vomiting Genitourinary Genitourinary: Denies dysuria Neurologic Neurologic: Denies weakness PFSH All Active Problems (Updated 10/12/21 @ 23:05 by Anup Hunt MD) Umbilicus discharge (Acute) Kidney stone (Chronic) Medication overuse headache (Acute) Migraine headache without aura (Acute) Migraine headache with aura (Acute) Encounter for removal and reinsertion of Nexplanon (Acute) Contraception (Acute 10/31/16) 2015. Nexplanon. 02/2019 removal and reinsertion Nexplanon. Migraine, unspecified, not intractable, without status migrainosus (Acute 04/10/16) Medical History Asthma Strain of flexor digitorum superficialis tendon (09/25/19) Surgical History Biopsy, Soft Tissue (04/17/17) excision left lower extremity, melanocytic nevus S/P exploratory laparotomy w/ hernia repair Tonsillectomy and adenoidectomy (~2010) urachal cyst excision (01/21/17) Family History Mother Mental disorder anxiety Father Substance abuse Migraines chronic and disabled with O2 therpay for Other Diabetes MGM Migraines paternal side Neoplasm mat great aunt-blood Sister Asthma Sister Asthma Social History Smoking/Tobacco Use Status: Former Tobacco Use Smoking risk assessment performed?: Yes Alcohol Intake: former Drug use: Daily Substance use type: marijuana Details: 04/20/21--no marijuana past 4 days Household members: family Housing: house Number of Children: 0 Pets and animals: Yes Pets and animals: cat(s), dog(s), hamster(s) and iguana(s) Current gender identity: female What is your relationship status?: never Panel score (0-1 are the most socially isolated patients): 0 What type of physical activity do you participate in: none Seatbelt use: always Do you feel safe at home: Yes Do you feel safe in your relationship?: Yes Exam Const General: no acute distress Orientation: alert HENMT Head: normal to inspection Ears: external ears normal General nose exam: external nose normal Mouth: moist mucous membranes Eyes General: appearance normal, both eyes and all related structures Neck Neck: normal visual inspection Resp Effort & Inspection: normal respiratory effort and able to speak in complete sentences Cardio Rate: regular rate GI Palpation: soft Skin General skin exam: no rashes or lesions noted Neuro General: patient alert and patient oriented x3 Extrem General: normal to inspection Psych Mental Status: mental status grossly normal Course Vital Signs Vital signs: Vital Signs Temperature 36.6 C 10/12/21 20:03 Pulse 67 10/12/21 20:03 Respiratory Rate 18 10/12/21 20:03 Blood Pressure 128/79 10/12/21 20:03 Pulse Oximetry 99 10/12/21 20:03 Temperature 36.6 C 10/12/21 20:03 Temperature Source Temporal Artery Scan 10/12/21 20:03 Pulse 67 10/12/21 20:03 Respiratory Rate 18 10/12/21 20:03 Blood Pressure 128/79 10/12/21 20:03 Blood Pressure Position Supine 10/12/21 20:03 Pulse Oximetry 99 10/12/21 20:03 Oxygen Delivery Method Room Air 10/12/21 20:03 Oxygen Flow Rate 0 10/12/21 20:03
[2021-10-12] MEDS: Ketorolac 15 MG/ML VIAL IVP (20:22)
[2021-10-12] MEDS: Ondansetron 4 MG/2 ML VIAL IVP (20:23)
[2021-10-12] MEDS: Normal Saline 1,000 ML 1000 ML IV (20:23)
[2021-10-12 20:26] LABS: Abs Immature Grans 0.02 10^3/uL (0.0-0.06); Absolute Basophil Count 0.05 10^3/uL (0.0-0.2); Absolute Eosinophil Count 0.12 10^3/uL (0.0-0.7); Absolute Lymphocyte Count 2.31 10^3/uL (1.2-3.4); Absolute Monocyte Count 0.38 10^3/uL (0.1-0.8); Absolute Neutrophil Count 3.72 10^3/uL (1.2-6.7); Basophils % 0.8; Eosinophils % 1.8; HCT 39.8 % (36.0-46.0); HGB 13.1 g/dL (11.2-15.7); Immature Grans % 0.3; MCHC 32.9 % (32.0-36.0); MCV 91 fL (80-95); MPV 9.1 fL (8.0-11.0); Monocytes % 5.8; Neutrophils % 56.3; Platelet Count 281 10^3/uL (130-400); RBC 4.37 10^6/uL (3.93-5.22); RDW 11.9 % (11.7-14.6); RDW-SD 39.4 fL
[2021-10-12 20:36] LABS: ALT 19 U/L (14-59); AST 10 U/L (15-37); Albumin 4.2 g/dL (3.4-5.0); Alkaline Phosphatase 51 U/L (46-116); Anion Gap 5.1 mmol/L (3-11); BUN 15 mg/dL (7-18); Bilirubin, Total 1.1 mg/dL (0.2-1.0); CO2 28.9 mmol/L (21.0-32.0); Calcium 8.8 mg/dL (8.5-10.1); Chloride 106 mmol/L (98-107); Glucose 108 mg/dL (74-106); Lipase 76 U/L (73-393); Potassium 3.7 mmol/L (3.5-5.1); Sodium 140 mmol/L (136-145)
[2021-10-12 20:58] LABS: Bilirubin Negative (Negative); Blood Large (Negative); Clarity Clear (Clear); Glucose Negative (Negative); Ketones Trace mg/dL (Negative); Leukocyte Esterase Negative (Negative); Nitrite Negative (Negative); Specific Gravity >= 1.030 (1.005-1.025)
[2021-10-12 21:21] LABS: Epithelial Cells Rare HPF (Negative); RBC >50 HPF (0-2); WBC 0-2 HPF (0-5)
[2021-10-12 21:22] LABS: Bacteria Negative HPF (Negative); C & S Indicated? No; Casts Negative LPF (Negative); Crystals Negative HPF (Negative); Mucus Negative (Negative); Other Cells Negative (Negative)
--- NOTE | 2021-10-12 22:56 | DI.VRAD_ITS ---
Addendum created by Reji Mitchell MD on 10/12/2021 10:58:13 PM EDT: Findings were discussed with Anup Hunt at 10/12/2021 10:58 PM EDT. Initial report created on 10/12/2021 10:55:58 PM EDT: PROCEDURE INFORMATION: Exam: CT Abdomen And Pelvis Without Contrast Exam date and time: 10/12/2021 9:15 PM Age: 26 years old Clinical indication: Abdominal pain; Patient HX: Left flank pain TECHNIQUE: Imaging protocol: Computed tomography of the abdomen and pelvis without contrast. COMPARISON: CT ABDOMEN PELVIS W 07/19/2018 10:07 AM FINDINGS: Lungs: The visualized lung escudero show mild bibasilar peripheral ground-glass opacities, atelectasis versus pneumonitis. Liver: Normal size and homogeneous density. No liver mass is seen. Gallbladder and bile ducts: No calcified gallstones. No ductal dilation. Pancreas: Normal size and homogeneous density. No ductal dilation. Spleen: Normal. No splenomegaly. Adrenal glands: Normal. No mass. Kidneys and ureters: There is mild bilateral nephrocalcinosis. There is mild fullness of the left renal collecting system and ureter down to the lower pelvis, level of the acetabulum, where there is a partially obstructive 3 mm calculus (axial series 2, image 105; coronal series 4, image 45). Stomach and bowel: There is no evidence of small bowel or colonic obstruction. There is thickening of the wall of the descending colon sigmoid without pericolonic stranding that may be secondary to colitis or underdistension. There is mild diverticulosis of the descending colon and sigmoid the (axial series 2, image 75; coronal series 4, image 27). Appendix: No evidence of appendicitis. Intraperitoneal space: No free air. No significant fluid collection. Vasculature: No abdominal aortic aneurysm. Lymph nodes: No enlarged retroperitoneal or mesenteric lymph nodes. Urinary bladder: The bladder is mostly decompressed and is free of calcific opacities. There is a 4 x 3 mm calcification in the urethra that likely represent a 2nd calculus (axial series 2, image 126; coronal series 4, image 40). It is not present in the comparison examination of 2019. Reproductive: Unremarkable as visualized. There are bilateral physiologic ovarian follicles. Bones/joints: No acute fracture. No evidence of bone destruction. Soft tissues: There is mild thickening/fibrosis or inflammatory change of the umbilicus. IMPRESSION: 1. A partially obstructive calculus in the distal left ureter, level of the acetabulum. 2. A 2nd calculus is visualized in the urethra with a decompressed bladder. 3. Mild nephrocalcinosis. 4. Mild bibasilar atelectasis versus peripheral pneumonitis such as COVID-19. Dictated and Authenticated by: Reji Mitchell MD. Ordering:ELIUD Hebert MD
--- NOTE | 2021-10-12 23:05 | NUR.NOTE ---
Referral faxed to [facility]rology for f/u of kidney stone.Nursing Note:
[2021-10-12 23:38] VITALS: BP 126/65; PULSE 70; RESP 16; O2SAT 98
[2021-10-15 11:54] LABS: COVID-19 RT-PCR UVMMC Result Negative (Negative)
--- NOTE | 2021-10-15 17:05 | NUR.NOTE ---
Attempted to contact patient with negative covid results, telephone states that the phone is not taking calls at this time. Nursing Note:
== END 2021-10-12 23:44 | disposition home or self-care (01) ==
PROVIDERS: Emergency Provider Emergency Medicine; PCP Nurse Practitioner Family
DX: N20.2 Calculus of kidney with calculus of ureter (principal); R93.5 Abnormal findings on diagnostic imaging of other abdominal regions, including retroperitoneum; J45.909 Unspecified asthma, uncomplicated; Z20.822 Contact with and (suspected) exposure to COVID-19; Z87.891 Personal history of nicotine dependence
CPT/HCPCS: 36415; 80053; 81025; 83690; 96361; 96374; 96375; 99284; U0003; 74176; 81003; 81015; 85025; J1885; J2405

== ENCOUNTER 2021-10-24 02:43 | Outpatient (CLI) | payer MEDICAID, SELFPAY ==
[2021-10-24] MEDS: Inhaler, Assist Device 1 EACH MC (14:03)
[2021-10-24] MEDS: Albuterol HFA 18 GM 200 PUFF INH IH (14:03)
--- NOTE | 2021-10-25 16:20 | W.PFT ---
Date of service: 10/24/21 Time of Service: 13:02 Pulmonary Function Test Result Requesting Provider Deyanira Torres Indications: Lung inflammation Interpretation Spirometry: There is no airflow limitation.There is no significant bronchodilator response. Lung Volumes: Lung volumes are normal. Diffusion Capacity: Diffusion is normal. Airway Pressure: Normal airways resistance. Impression Normal pulmonary function testing. Clinical Correlation therefore is recommended.
== END 2021-10-24 02:44 | disposition home or self-care (01) ==
LOC: RT 02:43
PROVIDERS: PCP Nurse Practitioner Family; Visit Provider Nurse Practitioner Family
DX: J18.9 Pneumonia, unspecified organism (principal); Z87.891 Personal history of nicotine dependence
CPT/HCPCS: 94060; 94726; 94729

== ENCOUNTER 2022-01-10 06:40 | Emergency (ER) | payer MEDICAID, SELFPAY ==
[2022-01-10 06:45] VITALS: BP 138/85; PULSE 91; RESP 18; TEMP 36.6; O2SAT 100
--- NOTE | 2022-01-10 06:52 | ED.GENADUL_ITS ---
Discharge Plan Disposition Patient Disposition: STILL A PATIENT Condition: Stable Discharge Details Chief Complaint: Nausea/Vomit/Diar Clinical Impression: Nausea and vomiting Primary Care Provider: Deyanira Torres ED Provider: Anup Hunt Home Meds and New Rx's Prescriptions: No Action Nexplanon 68 mg implant 1 implant SBD ONCE Qty: 1 0RF Rx Instructions: as a single dose hydroxyzine HCl 25 mg tablet See Rx Instructions PO QID PRN (Reason: headaches) Qty: 60 2RF Rx Instructions: 25-50 mg PO four times a day PRN; ibuprofen 600 MG tablet 600 mg PO Q6H PRN PRNQty: 30 1RF acetaminophen [Tylenol] 325 MG tablet 650 mg PO PRN PRNQty: 0 0RF Excedrin Extra Strength 250-250-65 mg Tablet 2 tab PO PRN PRN sertraline 50 mg tablet 1 tab PO DAILY Label Comments: TAKE ONE TABLET BY MOUTH EVERY DAY Medical Decision Making 26 yo female who has had a history of intermittent issues with drainage from her umbilicus, migraines, who comes in with intermittent n/v for 2 days and yesterday and the day before had fever to 101. She has not had a cough, no diarrhea, no headaches. She also notes ear pain. This morning she noticed a nose bleed and then had reucurrent n/v with some streaks of blood. She arrives stable in no distress. She has no drainage or redness of the umbilicus nor tenderness. She has normal tm's,normal posterior pharynx, no evidence of epistaxis on exam. She has no abdominal tenderness, clear lungs. Unclear etiology for her n/v and fevers that have resolved. Will obtain fluvid, cbc, cmp, ua and treat with zofran and reassess. Suspect her blood she saw in her vomit is likely related to the nosebleed she states she has, unlikely upper gi bleed though could be regla perez tear from the recurrent n/v she has been having. patient signed out to oncoming provider pending labs and reassessment Differential Diagnosis Differential Diagnosis: gastroenteritis, epistaxis, regla perez tear HPI General Mode of arrival: ambulatory . Date/Time Provider Initiated Documentation: 01/10/22 06:42 . Limitations to Documentation: no limitations . Information obtained by: patient . History of Present Illness 26 year old F presents to the emergency department with the chief complaint of n/v, describ ed as moderate, and it has been constant. No relieving factors improve symptom(s), No exacerbating factors reported . Patient notes no other symptoms.. Patient did receive the following treatments prior to arrival, none Related Data Home Medications Medication Instructions Recorded Confirmed acetaminophen 325 mg tablet 650 mg PO PRN PRN ##0 01/21/17 04/20/21 (Tylenol) ibuprofen 600 mg tablet 600 mg PO Q6H PRN PRN #30 tabs 01/21/17 04/20/21 etonogestrel 68 mg subdermal 1 implant subdermal ONCE #1 ea 03/20/19 04/20/21 implant (Nexplanon) [id number]-fjhbqxfszzkcd-oimjabfq 250 2 tab PO PRN PRN 11/07/19 04/20/21 mg-250 mg-65 mg tablet (Excedrin Extra Strength) hydroxyzine HCl 25 mg tablet See Rx Instructions PO QID PRN 08/07/20 04/20/21 headaches #60 tabs sertraline 50 mg tablet 1 tab PO DAILY 10/12/21 10/12/21 Previous Rx's Medication Instructions Recorded acetaminophen 325 mg tablet 650 mg PO PRN PRN ##0 01/21/17 (Tylenol) ibuprofen 600 mg tablet 600 mg PO Q6H PRN PRN #30 tabs 01/21/17 etonogestrel 68 mg subdermal 1 implant subdermal ONCE #1 ea 03/20/19 implant (Nexplanon) hydroxyzine HCl 25 mg tablet See Rx Instructions PO QID PRN 08/07/20 headaches #60 tabs Allergies Allergy/AdvReac Type Severity Reaction Status Date / Time codeine AdvReac Intermediate hyper Verified 10/22/21 11:16 gluten Allergy Uncoded 10/22/21 11:16 Melon AdvReac Unknown Hives Uncoded 10/22/21 11:16 General Stated Complaint: Nausea/Vomit/Diar KARO: 3 Review of Systems All systems reviewed & are unremarkable except as noted in HPI and below Constitutional Constitutional: Denies chills, Denies fever(s) and Denies weakness Eyes Eyes: Denies loss of vision Respiratory Respiratory: Denies cough Musculoskeletal Musculoskeletal: Denies joint swelling Neurologic Neurologic: Denies loss of vision and Denies weakness PFSH All Active Problems (Updated 01/10/22 @ 07:02 by Anup Hunt MD) Umbilicus discharge (Acute) Nausea and vomiting (Acute) Medication overuse headache (Acute) Migraine headache without aura (Acute) Migraine headache with aura (Acute) Encounter for removal and reinsertion of Nexplanon (Acute) Contraception (Acute 10/31/16) 2015. Nexplanon. 02/2019 removal and reinsertion Nexplanon. Migraine, unspecified, not intractable, without status migrainosus (Acute 04/10/16) Medical History Asthma Strain of flexor digitorum superficialis tendon (09/25/19) Surgical History Biopsy, Soft Tissue (04/17/17) excision left lower extremity, melanocytic nevus S/P exploratory laparotomy w/ hernia repair Tonsillectomy and adenoidectomy (~2010) urachal cyst excision (01/21/17) Family History Mother Mental disorder anxiety Father Substance abuse Migraines chronic and disabled with O2 therpay for Other Diabetes MGM Migraines paternal side Neoplasm mat great aunt-blood Sister Asthma Sister Asthma Social History Smoking/Tobacco Use Status: Former Tobacco Use Smoking risk assessment performed?: Yes Alcohol Intake: former Drug use: Daily Substance use type: marijuana Details: 04/20/21--no marijuana past 4 days Household members: family Housing: house Number of Children: 0 Pets and animals: Yes Pets and animals: cat(s), dog(s), hamster(s) and iguana(s) Current gender identity: female What is your relationship status?: never Panel score (0-1 are the most socially isolated patients): 0 What type of physical activity do you participate in: none Seatbelt use: always Do you feel safe at home: Yes Do you feel safe in your relationship?: Yes Exam Const General: no acute distress Orientation: alert HENMT Head: normal to inspection Ears: external ears normal General nose exam: external nose normal Mouth: moist mucous membranes Eyes General: appearance normal, both eyes and all related structures Neck Neck: normal visual inspection Resp Effort & Inspection: normal respiratory effort and able to speak in complete sentences Cardio Rate: regular rate GI Palpation: soft and nontender Neuro General: patient alert and patient oriented x3 Extrem General: normal to inspection Psych Mental Status: mental status grossly normal Course Vital Signs Vital signs: Vital Signs Temperature 36.6 C 01/10/22 06:45 Pulse 91 H 01/10/22 06:45 Respiratory Rate 18 01/10/22 06:45 Blood Pressure 138/85 01/10/22 06:45 Pulse Oximetry 100 01/10/22 06:45 Temperature 36.6 C 01/10/22 06:45 Pulse 91 H 01/10/22 06:45 Respiratory Rate 18 01/10/22 06:45 Blood Pressure 138/85 01/10/22 06:45 Blood Pressure Position Sitting 01/10/22 06:45 Pulse Oximetry 100 01/10/22 06:45 Oxygen Delivery Method Room Air 01/10/22 06:45 Oxygen Flow Rate 0 01/10/22 06:45 Pain Level 0 01/10/22 06:45
[2022-01-10 07:37] LABS: Bilirubin Negative (Negative); Blood Negative (Negative); Clarity Sl Cloudy (Clear); Glucose Negative (Negative); Ketones Negative (Negative); Leukocyte Esterase Negative (Negative); Nitrite Negative (Negative); Specific Gravity >= 1.030 (1.005-1.025)
== END 2022-01-10 07:28 ==
LOC: ER 07:27
PROVIDERS: Emergency Provider Emergency Medicine; PCP Nurse Practitioner Family
DX: R11.2 Nausea with vomiting, unspecified (principal); Z53.20 Procedure and treatment not carried out because of patient's decision for unspecified reasons
CPT/HCPCS: 80053; 81025; 83690; 87637; 96374; 99284; 81003; 83735; 85025

== ENCOUNTER 2022-02-28 12:56 | Outpatient (REF) | payer MEDICAID, SELFPAY ==
[2022-03-01 13:35] LABS: Chlamydia Result Negative (Negative); GC Result Negative (Negative)
== END 2022-02-28 12:57 | disposition home or self-care (01) ==
LOC: LBN 12:56
PROVIDERS: PCP Nurse Practitioner Family; Visit Provider Obstetrics & Gynecology Gynecology
DX: Z11.3 Encounter for screening for infections with a predominantly sexual mode of transmission (principal)
CPT/HCPCS: 87491; 87591

== ENCOUNTER 2023-04-29 14:01 | Outpatient (REF) | payer SELFPAY ==
[2023-04-29 17:05] LABS: ALT 50 U/L (14-59); AST 22 U/L (15-37); Albumin 4.1 g/dL (3.4-5.0); Alkaline Phosphatase 95 U/L (46-116); Anion Gap 11.6 mmol/L (3-11); BUN 12 mg/dL (7-18); Bilirubin, Total 1.1 mg/dL (0.2-1.0); CO2 27.4 mmol/L (21.0-32.0); CREATININE 0.8 mg/dL (0.55-1.02); Calcium 9.6 mg/dL (8.5-10.1); Chloride 106 mmol/L (98-107); Glucose 89 mg/dL (74-106); Potassium 4.3 mmol/L (3.5-5.1); Sodium 145 mmol/L (136-145); TSH (W/Ref FT4) 1.13 uIU/mL (0.36-3.74); Total Protein 7.3 g/dL (6.4-8.2)
[2023-04-29 22:09] LABS: Estradiol 50 pg/mL (See Note)
[2023-04-29 22:19] LABS: FSH 7.9 mIU/mL (See Note)
[2023-04-29 22:22] LABS: Prolactin 3.9 ng/mL (See Note)
== END 2023-04-29 14:02 | disposition home or self-care (01) ==
LOC: NCHCN 14:01
PROVIDERS: PCP Nurse Practitioner Family; Visit Provider Nurse Practitioner Family
DX: N91.0 Primary amenorrhea (principal); E80.6 Other disorders of bilirubin metabolism
CPT/HCPCS: 80053; 82670; 83001; 84146; 84443

== ENCOUNTER 2023-09-30 03:14 | Outpatient (CLI) | payer MEDICAID, SELFPAY ==
[2023-09-30 14:01] LABS: Panorama Kit Sent via Fed Ex
[2023-09-30 14:14] LABS: Abs Immature Grans 0.03 10^3/uL (0.0-0.06); Absolute Basophil Count 0.03 10^3/uL (0.0-0.2); Absolute Eosinophil Count 0.09 10^3/uL (0.0-0.7); Absolute Lymphocyte Count 1.95 10^3/uL (1.2-3.4); Absolute Monocyte Count 0.54 10^3/uL (0.1-0.8); Absolute Neutrophil Count 6.76 10^3/uL (1.2-6.7); Basophils % 0.3 %; HCT 34.1 % (36.0-46.0); Immature Grans % 0.3 %; Lymphocytes % 20.7 %; MCH 30.4 pg (27.0-33.0); MCHC 35.2 % (32.0-36.0); MCV 86 fL (80-95); MPV 9.2 fL (8.0-11.0); Monocytes % 5.7 %; Platelet Count 355 10^3/uL (130-400); RBC 3.95 10^6/uL (3.93-5.22); RDW 11.5 % (11.7-14.6); RDW-SD 36.3 fL
[2023-09-30 14:52] LABS: TSH (W/Ref FT4) 1.14 uIU/mL (0.36-3.74)
[2023-10-01 10:28] LABS: Hepatitis B Surface Ag Negative (Negative)
[2023-10-01 11:02] LABS: HIV-1/2 Ag & Ab Screen Negative (Negative)
[2023-10-01 11:15] LABS: Hepatitis C Ab w Rflx HCV PCR Negative (Negative)
[2023-10-01 11:44] LABS: Varicella IgG Antibody Negative (See Note)
[2023-10-01 11:48] LABS: Rubella IgG Ab (UVM) Negative (See Note)
[2023-10-02 17:24] LABS: Syphilis IgG w/Reflex Nonreactive (Nonreactive)
[2023-10-09 17:00] LABS: Result Summary NEGATIVE; Specimen WB Whole Blood
== END 2023-09-30 03:15 | disposition home or self-care (01) ==
LOC: LBO 03:14
PROVIDERS: Advanced Practice Midwife; PCP Nurse Practitioner Family; Visit Provider Advanced Practice Midwife
DX: Z34.91 Encounter for supervision of normal pregnancy, unspecified, first trimester (principal)
CPT/HCPCS: 36415; 81220; 81222; 86787; 86803; 86850; 86900; 86901; 87340; 87389; 84443; 85025; 86762; 86780

== ENCOUNTER 2023-09-30 12:50 | Outpatient (REF) | payer MEDICAID, SELFPAY ==
[2023-10-02 13:21] LABS: Chlamydia Result Negative (Negative); GC Result Negative (Negative)
== END 2023-09-30 12:51 | disposition home or self-care (01) ==
LOC: LBN 12:50
PROVIDERS: PCP Nurse Practitioner Family; Visit Provider Advanced Practice Midwife
DX: Z34.91 Encounter for supervision of normal pregnancy, unspecified, first trimester (principal); Z11.3 Encounter for screening for infections with a predominantly sexual mode of transmission; Z3A.11 11 weeks gestation of pregnancy
CPT/HCPCS: 87491; 87591; 87086

== ENCOUNTER 2023-11-25 02:10 | Outpatient (CLI) | payer MEDICAID, SELFPAY ==
--- NOTE | 2023-11-25 12:14 | DI.US_ITS ---
Exam(s) US OB 2-3 TRIMESTER EXAM: US OB 2-3 TRIMESTER CLINICAL HISTORY: morphology,Z34.91. TECHNIQUE: Transabdominal obstetrical ultrasound performed. COMPARISON: US POCUS EXAM from 08/27/2023 FINDINGS: Number of fetuses: One. position: Vertex. Placental grade: 1 Placental location: Posterior. No evidence of previa. BIOMETRIC DATA: BPD: 48mm = 20+ 4 weeks HC: 175mm = 20+ 0 weeks AC: 144mm = 19+ 5 weeks FL: 33mm = 20+ 3 weeks Cisterna Magna: 4.4 mm Cerebellum: 1.9 cm EFW: 330 grms 58% Composite Age: 20+ 1 weeks EDC by US: 12 April 2024 Heart Rate: 141BPM Amniotic fluid : Amount of fluid is within normal limits. ANATOMICAL SURVEY: Four-chambered heart: Unremarkable. LVOT: Unremarkable. RVOT: Unremarkable. Left-sided stomach: Unremarkable. urinary bladder: Unremarkable. Bilateral kidneys: Unremarkable. Three-vessel cord: Unremarkable. Cord insertion: Unremarkable. Posterior fossa:Unremarkable. ventricles: Unremarkable. nose: Unremarkable. lips: Unremarkable. palate: Unremarkable. spine: Unremarkable. Two arms and two legs: Unremarkable. IMPRESSION: 1. Single live intrauterine with composite age of 20 weeks 1 day.. 2. Normal anatomic survey. DATA REPOSITORY:
== END 2023-11-25 02:30 ==
LOC: DI 02:10
PROVIDERS: PCP Nurse Practitioner Family; Visit Provider Advanced Practice Midwife
DX: Z34.91 Encounter for supervision of normal pregnancy, unspecified, first trimester (principal); Z3A.20 20 weeks gestation of pregnancy
CPT/HCPCS: 76805

== ENCOUNTER 2024-01-20 03:38 | Outpatient (CLI) | payer MEDICAID, SELFPAY ==
[2024-01-20 15:18] LABS: Glucose,1 Hr (Glucola) 92 mg/dL (80-140)
[2024-01-20 17:42] LABS: *AMPHETAMINES SCREEN URINE Negative (Negative); *BARBITURATES SCREEN URINE Negative (Negative); *BENZODIAZEPINES SCREEN URINE Negative (Negative); Cannabinoids THC Positive (Negative); Cocaine Screen,Urine Negative (Negative); METHADONE URINE SCREEN Negative (Negative); OPIATES URINE SCREEN Positive (Negative)
[2024-01-20 17:52] LABS: Tricyclic Antidepressants Negative (Negative)
[2024-01-21 08:59] LABS: Lab Add On Test DONE
[2024-01-22 11:31] LABS: Fentanyl Scr w/Rfx Confirm Negative ng/mL (<1)
[2024-01-26 12:37] LABS: Codeine 720 ng/mL (Cutoff: 25); Dihydrocodeine Negative ng/mL (Cutoff: 25); Hydrocodone Negative ng/mL (Cutoff: 25); Hydromorphone Negative ng/mL (Cutoff: 25); Morphine Negative ng/mL (Cutoff: 25); Naloxone Negative ng/mL (Cutoff: 25); Norhydrocodone Negative ng/mL (Cutoff: 25); Noroxycodone Negative ng/mL (Cutoff: 25); Noroxymorphone Negative ng/mL (Cutoff: 25); Opiates Interpretation Positive.
[2024-01-27 11:18] LABS: Buprenorphine Negative ng/mL (Cutoff: 5.0)
== END 2024-01-20 03:39 | disposition home or self-care (01) ==
LOC: LBO 03:39
PROVIDERS: PCP Nurse Practitioner Family; Visit Provider Advanced Practice Midwife
DX: Z34.92 Encounter for supervision of normal pregnancy, unspecified, second trimester (principal); R82.5 Elevated urine levels of drugs, medicaments and biological substances
CPT/HCPCS: 36415; 80307; 80348; 80361; 80362; 80365; 82950

== ENCOUNTER 2024-01-31 11:24 | Outpatient (CLI) | payer MEDICAID, SELFPAY ==
[2024-01-31] VITALS (7 sets, daily range): BP systolic 118–122; BP diastolic 64–74; PULSE 79–129; RESP 17; TEMP 36.6–37.1; O2SAT 98–99
[2024-01-31] MEDS: Betamet Acet/Betamet Na Ph Inj. 30 MG/5 ML 12 MG IM (12:03)
--- NOTE | 2024-01-31 12:06 | HPE_ITS ---
Date of service: 01/31/24 Time of Service: 12:06 Assessment and Plan Assessment and plan (1) labor in third trimester: Status: Acute Assessment and plan: A: 28 yo G1 @ 29+3 wks by 7 week dating ultrasound Onset of PTL, uncomfortable in LLQ for 2 days, worse today Found to be 1/100% vtx OP and -1, intact membranes Category 1 tracing, ajit q2-3 min, pt appears worried but not in acute distress P: Reviewed case with Dr. Guido, initiate transfer to tertiary care Start IV fluids, begin Magnesium 4 gm bolus and 2 gm/hr PCN prophylaxis ordered, Nifedipine [address] Villafuerte Celestone 12 mg IM, GBS sent, U&S and UDS sent Transfer to [facility] accepted by Dr. Wynne as [facility] full Qualifiers: Fetus number: single or unspecified fetus OB-HPI Labor/Delivery History of Present Illness Reason for Visit: PRE-TERM LABOR Chief Complaint: Maternal Discomfort , Associated Signs and Symptoms of Maternal Discomfort: pt reports left side and LLQ pain since Thursday, worse today. Noted mucous plug came out yesterday. No ROM, no bleeding, no vomiting, denies dysuria, appreciates movement, no recent coitus.. ALLAN Calculator Estimated Delivery Date Method Current Current Estimate 04/14/24 Ultrasound #1 29w 3d Other Estimates 02/26/24 LMP (Uncertain) 36w 2d History of Present Expected Delivery Route/Plan -CNM FOB/rina Blackbrun (first child) BG Damian VZV and Rubella non immune, offer vaccines Nexplanon immediately Specific Issues/Plan 1. Chronic migraine, referred to [facility] neurology 2. cfDNA low risk female, CF negative 3. Pap is due but declined at initial OB visit 4. 5 P's +, THC use, discussed FSP, UDS @ 28 wks=THC+, 4a. initial UDS Opiate+, ID/confirmation shows Codeine, discuss w/pt __ 5. Covid infection 01/04 - treated with paxlovid. Assessment: History Reviewed & Current Review of Systems Narrative: ROS noncontributory other than HPI PFSH All Active Problems (Updated 01/31/24 @ 12:50 by Bridgette Waite) labor in third trimester (Acute) Marijuana use during (Acute) Positive urine drug screen (Acute) Maternal varicella, non-immune (Acute) Rubella non-immune status, antepartum (Acute) (Acute) Gastroesophageal reflux disease (Chronic) Medication overuse headache (Acute) Migraine headache without aura (Acute) Migraine headache with aura (Acute) Migraine, unspecified, not intractable, without status migrainosus (Acute 04/10/16) Medical History (Updated 01/31/24 @ 12:50 by Bridgette Waite) Positive test Amenorrhea Strain of flexor digitorum superficialis tendon (09/25/19) Asthma Surgical History S/P exploratory laparotomy w/ hernia repair urachal cyst excision (01/21/17) Tonsillectomy and adenoidectomy (~2010) Biopsy, Soft Tissue (04/17/17) excision left lower extremity, melanocytic nevus Family History Mother Mental disorder anxiety Father Substance abuse Migraines chronic and disabled with O2 therpay for Other Diabetes MGM Migraines paternal side Neoplasm mat great aunt-blood Sister Asthma Sister Asthma Social History Smoking/Tobacco Use Status: Former Tobacco Use Smoking risk assessment performed?: Yes Alcohol Intake: former Drug use: Daily Substance use type: marijuana Details: 04/20/21--no marijuana past 4 days Household members: family Housing: house Number of Children: 0 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 History History 1 Para 0 Hx # Term Pregnancies 0 Multiple births 0 Hx # Pregnancies 0 Ectopic pregnancies 0 AB induced 0 Hx Number of Living Children 0 AB spontaneous 0 Meds Allergies and Home Medications Allergies Allergy/AdvReac Type Severity Reaction Status Date / Time codeine AdvReac Intermediate hyper Verified 01/20/24 14:07 Melon AdvReac Unknown Hives Uncoded 01/20/24 14:07 Home Medications ?Medication ?Instructions ?Recorded ?Confirmed ?Type acetaminophen 325 mg tablet 650 mg (2 x 325 mg) PO PRN PRN ##0 01/21/17 01/20/24 Rx (Tylenol) omeprazole 40 mg capsule,delayed 40 mg PO DAILY #30 caps 08/29/23 01/20/24 Rx release ondansetron HCl 4 mg tablet 4 mg PO Q6H PRN nausea and 09/01/23 01/20/24 Rx vomiting #20 tabs promethazine 12.5 mg tablet 12.5 mg PO Q6H PRN nausea and 09/01/23 01/20/24 Rx vomiting #30 tabs vits 75-iron 28 mg-folic pkg PO 09/30/23 01/20/24 History acid 800 mcg-omega-3 oral combo pack (One A Day Women's DHA) cyproheptadine 4 mg tablet 4 mg PO Q6H #30 tabs 10/07/23 01/20/24 Rx nirmatrelvir 300 mg (150 mg See Rx Instructions PO .COMPLEX 01/05/24 Rx x2)-ritonavir 100 mg tablet,dose #30 dose pk pack (Paxlovid) Exam Physical Exam Vital signs: Pulse BP 79 118/74 01/31/24 12:00 01/31/24 12:00 Vital Signs Reviewed: Yes Constitutional Constitutional: mild distress, average body habitus and cooperative Detailed Labor and Delivery Exam Dilation: 1 Effacement (%): 100 station: -1 Cervix position: mid Consistency: medium Del Valle Score: Cervical Points Exam 0 1 2 3 Dilation Closed 1-2cm 3-4 cm 5-6cm Effacement 0-30% 40-50% 60-70% 80% Consistency Firm Medium Soft Station -3 -2 -1,0 +1,+2 Position Posterior Mid Anterior Amniotic Membrane Status: Intact Contraction Frequency(min): q2-3 Fetus A Heart Rate Baseline: 130 Monitor Accelerations: Present Monitor Decelerations: None Variability: Moderate (6-25 BPM) Presentation: Cephalic (LOP, confirmed with bedside ultrasound) Categories: Category I HEENT Exam HEENT Exam: Normal Neck Exam Neck Exam: Normal Chest/Brest/Axilla Exam Chest Exam: Normal Breast Exam Breast Exam: Not Done Respiratory Exam Respiratory Exam: Normal Cardiovascular Exam Cardiovascular Exam: Normal Abdominal Exam Abdominal Exam: Normal (Gravid, firm, nontender) Rectal Exam Rectal Exam: Normal Exam Exam: Normal (nml external exam) Extremities Exam Extremities Exam: Normal Back/Spine/Pelvis Exam Back Exam: Normal Pelvis Adequate: Yes Skin Exam Skin Exam: Normal Neurological Exam Neurological Exam: Normal Psychiatric Exam Psychiatric Exam: Normal Results Results Group Beta Strep: Done-Result Unknown Blood Type: A+ Rubella Status: Nonimmune Varicella Immunity: Nonimmune Risk Assessment Risk for Shoulder Dystocia Historical/Initial OB: NEGATIVE FOR: Pelvic Abnormality, Pre- BMI>30, Previous Shoulder Dystocia or Previous Macrosomia Risk for Pre-Eclampsia Date Initiated/Initials: 09/30/23 Yes, if one or more: NEGATIVE FOR: Hx Pre-E/Gest HTN, Chronic HTN, Multiple Gestation, Pre-gestational DM, Renal Disease, Systemic Lupus or APA Syndrome Yes, if 2 or more: POSITIVE FOR: Nulliparity; NEGATIVE FOR: Age>= 35 yrs, >10yr btwn pregnancies, BMI>30, ethinicty, Mother/Sister w/ Pre-E or Previous IUGR Risk for Post- Hemorrhage Initial: NEGATIVE FOR: Multiple Gestation, Previous PPH, Known Clotting Deficiency, Grand Multiparity or Anticoagulation Counseled re: Active Management: Yes Date/Initials: 09/30/23 Risks Reviewed Risks Reviewed Upon Admission: Yes
[2024-01-31] MEDS: Penicillin G POT. 5,000,000 UNITS in Normal Saline 100 ML 200 UNITS IVPB (12:13)
[2024-01-31] MEDS: Lactated Ringers 1,000 ML 125 ML IV (12:18)
[2024-01-31] MEDS: NIFEdipine 10 MG CAP 20 MG PO (12:22)
[2024-01-31] MEDS: MAGNESIUM SULFATE 20 GM/500 ML BAG IV_INF (12:35)
[2024-01-31] MEDS: Ondansetron 4 MG/2 ML VIAL 8 MG IVP (12:41)
[2024-01-31 12:53] LABS: Bilirubin Negative (Negative); Blood Negative (Negative); Clarity Clear (Clear); Glucose Negative (Negative); Ketones 40 mg/dL (Negative); Leukocyte Esterase Small (Negative); Nitrite Negative (Negative); Specific Gravity 1.015 (1.005-1.025); Urobilinogen 0.2 mg/dL (Up to 0.2); pH 7.5 (5-8)
[2024-01-31 13:02] LABS: *AMPHETAMINES SCREEN URINE Negative (Negative); *BARBITURATES SCREEN URINE Negative (Negative); *BENZODIAZEPINES SCREEN URINE Negative (Negative); Cannabinoids THC Positive (Negative); Cocaine Screen,Urine Negative (Negative); METHADONE URINE SCREEN Negative (Negative); OPIATES URINE SCREEN Negative (Negative)
[2024-01-31 13:05] LABS: Tricyclic Antidepressants Negative (Negative)
[2024-01-31 13:10] LABS: Bacteria Rare HPF (Negative); C & S Indicated? C&S Done As Ordered; Casts Negative LPF (Negative); Crystals Negative HPF (Negative); Epithelial Cells Moderate HPF (Negative); Mucus Negative (Negative); RBC Negative HPF (0-2); WBC >50 HPF (0-5)
--- NOTE | 2024-01-31 13:14 | DSE_ITS ---
Date of service: 01/31/24 Time of Service: 13:14 DS: Diagnosis Discharge Diagnosis (1) labor in third trimester: Status: Acute Discharge Plan Disposition Patient Disposition: Other Disposition Not Listed Specific Acute Inpt Facility: [facility] Condition: Stable Discharge Details Reason For Visit: PRE-TERM LABOR Attending Provider: Bridgette Waite Primary Care Provider: Deyanira Torres Home Meds and New Rx's Prescriptions: No Action One A Day Women's DHA 28 mg iron- 800 mcg combo pack PO ondansetron HCl 4 mg tablet 4 mg PO Q6H PRN (Reason: nausea and vomiting) Qty: 20 5RF promethazine 12.5 mg tablet 12.5 mg PO Q6H PRN (Reason: nausea and vomiting) Qty: 30 1RF cyproheptadine 4 mg tablet 4 mg PO Q6H Qty: 30 1RF omeprazole 40 mg capsule,delayed release(DR/EC) 40 mg PO DAILY Qty: 30 3RF acetaminophen [Tylenol] 325 MG tablet 650 mg PO PRN PRNQty: 0 0RF Discharge Orders Discharge Orders: Discharge Order (Routine); Ordered 01/31/24 Ordered By: Bridgette Waite OB:DS Summary Contraception Discussed Contraception Discussed: No (undelivered), Status at Discharge Functional status at discharge: independent ambulation Overall status at discharge: patient is not back to baseline Mental Status: mental status grossly normal Speech and Movement: speech and movement normal and speech clear Mood: anxious mood Affect: normal affect Quality:SDOH Health Related Social Needs: No Data to Display Exam Physical Exam Vital signs: Temp Pulse Resp BP Pulse Ox 98.7 F 129 H 17 122/64 98 01/31/24 12:53 01/31/24 13:00 01/31/24 12:53 01/31/24 12:54 01/31/24 13:00 Constitutional Constitutional: mild distress, average body habitus and cooperative HEENT Exam HEENT Exam: Normal Neck Exam Neck Exam: Normal Respiratory Exam Respiratory Exam: Normal Cardiovascular Exam Cardiovascular Exam: Normal Rectal Exam Rectal Exam: Normal Back/Spine/Pelvis Exam Back Exam: Normal Skin Exam Skin Exam: Normal Neurological Exam Neurological Exam: Normal Psychiatric Exam Psychiatric Exam: Normal PFSH All Active Problems (Updated 01/31/24 @ 12:50 by Bridgette Waite) labor in third trimester (Acute) Marijuana use during (Acute) Positive urine drug screen (Acute) Maternal varicella, non-immune (Acute) Rubella non-immune status, antepartum (Acute) (Acute) Gastroesophageal reflux disease (Chronic) Medication overuse headache (Acute) Migraine headache without aura (Acute) Migraine headache with aura (Acute) Migraine, unspecified, not intractable, without status migrainosus (Acute 04/10/16) Medical History (Updated 01/31/24 @ 12:50 by Bridgette Waite) Positive test Amenorrhea Strain of flexor digitorum superficialis tendon (09/25/19) Asthma Surgical History S/P exploratory laparotomy w/ hernia repair urachal cyst excision (01/21/17) Tonsillectomy and adenoidectomy (~2010) Biopsy, Soft Tissue (04/17/17) excision left lower extremity, melanocytic nevus Family History Mother Mental disorder anxiety Father Substance abuse Migraines chronic and disabled with O2 therpay for Other Diabetes MGM Migraines paternal side Neoplasm mat great aunt-blood Sister Asthma Sister Asthma Social History Smoking/Tobacco Use Status: Former Tobacco Use Smoking risk assessment performed?: Yes Alcohol Intake: former Drug use: Daily Substance use type: marijuana Details: 04/20/21--no marijuana past 4 days Household members: family Housing: house Number of Children: 0 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 History History 1 Para 0 Hx # Term Pregnancies 0 Multiple births 0 Hx # Pregnancies 0 Ectopic pregnancies 0 AB induced 0 Hx Number of Living Children 0 AB spontaneous 0 DS: Data Vitals/I&O Vitals and I&O: Vital Signs Temperature 98.7 F 01/31/24 12:53 Temperature Source Oral 01/31/24 12:53 Pulse 129 H 01/31/24 13:00 Pulse Rhythm Regular 01/31/24 11:59 Respiratory Rate 17 01/31/24 12:53 Blood Pressure 122/64 01/31/24 12:54 Pulse Oximetry 98 01/31/24 13:00 Oxygen Delivery Method Room Air 01/31/24 11:59 Oxygen Flow Rate 0 01/31/24 11:59 Pain Level 6 01/31/24 11:59 Intake & Output 01/30/24 01/31/24 01/31/24 23:59 11:59 23:59 Intake Total 100 / 100 Balance 100 / 100 Weight 152 lb Intake: IV 100 / 100 Data Completed and Pending Labs on day of discharge: Labs from last 24 hours 01/31/24 12:11 Urine Color Yellow Urine Clarity Clear Urine pH 7.5 Ur Specific [place] 1.015 Urine Protein Negative Urine Ketones 40 H Urine Blood Negative Urine Nitrite Negative Urine Bilirubin Negative Urine Urobilinogen 0.2 Ur Leukocyte Esterase Small H Urine RBC Negative Urine WBC >50 H Ur Epithelial Cells Moderate Urine Crystals Negative Urine Bacteria Rare Urine Casts Negative Urine Mucus Negative Ur Culture Indicated? C&S Done As Ordered Urine Glucose Negative Urine Opiates Screen Negative Ur Buprenorphine Pending Ur Norbuprenorphine Pending Urine Methadone Screen Negative Urine Fentanyl Screen Pending Ur Barbiturates Screen Negative Ur Tricyclics Screen Negative Ur Amphetamines Screen Negative U Benzodiazepines Scrn Negative Urine Cocaine Screen Negative Ur THC Screen Positive A 01/31/24 12:11 Vaginal/Rectal Group B Streptococcus Culture - Pending 01/31/24 12:11 Urine - Voided Urine Culture - Pending Preliminary micro results at discharge 01/31/24 12:11 Group B Streptococcus Culture - Pending Vaginal/Rectal 01/31/24 12:11 Urine Culture - Pending Urine - Voided
--- NOTE | 2024-01-31 13:14 | OBCE_ITS ---
Date of service: 01/31/24 Time of Service: 13:14 Assessment and Plan Assessment and plan (1) : Status: Acute Assessment and plan: at 29 weeks. labor. Cervical dilation with effacement at 29 weeks. Received magnesium sulfate for toco lysis and neuroprotection, Procardia for toco lysis, and betamethasone for neuroprotection and lung maturity. Transfer to tertiary care center, [facility]. Patient transported via ambulance service. (2) labor in third trimester: Status: Acute Qualifiers: Fetus number: single or unspecified fetus History of Present Illness History of Present Illness Chief Complaint: labor Narrative: Kindly asked to see by our midwifery service this 28-year-old primigravida female who presented after having approximately 2 days of left lower quadrant discomfort to the center. On initial presentation she was noted to be having uterine activity and a cervix that was 1 cm, 100% effaced with a bulging bag of water per Laura Waite CNM. In light of this, labor management was implemented which included magnesium sulfate, betamethasone, antibiotic prophylaxis, group B strep culture, baseline laboratory studies, and consultation with tertiary care facility. Ultimately, the [facility] excepted her care. She also received 1 dose of Procardia, 20 mg orally. She was discharged via EMS to be transported to [facility] for ongoing care and maternal- medicine along with intensive care unit services. Consults Consult date: 01/31/24 Requesting physician: Bridgette Waite Review of Systems Constitutional Constitutional: Reports as per HPI Comments: Currently experiencing some nausea and hot flashes related to her magnesium bolus. Eyes Eyes: Reports system reviewed and no additional complaints, except as documented Cardiovascular Cardiovascular: Reports system reviewed and no additional complaints, except as documented Respiratory Respiratory: Reports system reviewed and no additional complaints, except as documented Gastrointestinal Gastrointestinal: Reports as per HPI Genitourinary Genitourinary: Reports as per HPI [facility] All Active Problems (Updated 01/31/24 @ 12:50 by Bridgette Waite) labor in third trimester (Acute) Marijuana use during (Acute) Positive urine drug screen (Acute) Maternal varicella, non-immune (Acute) Rubella non-immune status, antepartum (Acute) (Acute) Gastroesophageal reflux disease (Chronic) Medication overuse headache (Acute) Migraine headache without aura (Acute) Migraine headache with aura (Acute) Migraine, unspecified, not intractable, without status migrainosus (Acute 04/10/16) Medical History (Updated 01/31/24 @ 12:50 by Bridgette Waite) Positive test Amenorrhea Strain of flexor digitorum superficialis tendon (09/25/19) Asthma Surgical History S/P exploratory laparotomy w/ hernia repair urachal cyst excision (01/21/17) Tonsillectomy and adenoidectomy (~2010) Biopsy, Soft Tissue (04/17/17) excision left lower extremity, melanocytic nevus Family History Mother Mental disorder anxiety Father Substance abuse Migraines chronic and disabled with O2 therpay for Other Diabetes MGM Migraines paternal side Neoplasm mat great aunt-blood Sister Asthma Sister Asthma Social History Smoking/Tobacco Use Status: Former Tobacco Use Smoking risk assessment performed?: Yes Alcohol Intake: former Drug use: Daily Substance use type: marijuana Details: 04/20/21--no marijuana past 4 days Household members: family Housing: house Number of Children: 0 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 History History 1 Para 0 Hx # Term Pregnancies 0 Multiple births 0 Hx # Pregnancies 0 Ectopic pregnancies 0 AB induced 0 Hx Number of Living Children 0 AB spontaneous 0 Exam Narrative Exam Narrative: Alert oriented, uncomfortable due to her magnesium, some nausea. 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 Neuro General: patient alert, patient awake and patient oriented x3 Results Last Vital Signs Temp 98.7 F 01/31/24 12:53 Pulse 129 H 01/31/24 13:00 Resp 17 01/31/24 12:53 BP 122/64 01/31/24 12:54 Pulse Ox 98 01/31/24 13:00 Labs Labs: Laboratory Results - last 24 hr 01/31/24 12:11 Urine Color Yellow Urine Clarity Clear Urine pH 7.5 Ur Specific [place] 1.015 Urine Protein Negative Urine Ketones 40 H Urine Blood Negative Urine Nitrite Negative Urine Bilirubin Negative Urine Urobilinogen 0.2 Ur Leukocyte Esterase Small H Urine RBC Negative Urine WBC >50 H Ur Epithelial Cells Moderate Urine Crystals Negative Urine Bacteria Rare Urine Casts Negative Urine Mucus Negative Ur Culture Indicated? C&S Done As Ordered Urine Glucose Negative Urine Opiates Screen Negative Urine Methadone Screen Negative Ur Barbiturates Screen Negative Ur Tricyclics Screen Negative Ur Amphetamines Screen Negative U Benzodiazepines Scrn Negative Urine Cocaine Screen Negative Ur THC Screen Positive A
--- NOTE | 2024-01-31 16:35 | W.OBNST ---
Date of service: 01/31/24 Time of Service: 12:30 NST Evaluation Reason for NST Reasons for Nonstress Test: LABOR Gestational Age Gestational Age in Weeks and Days: 29 Weeks and 3Days Test and Monitor Explained Test/Monitor Explained: Test Explained, Monitor Explained and Patient Verbalized Understanding Vital Signs Blood Pressure: 118/74 Pulse: 120 Temperature: 98 F Urine Results Urine Protein: Positive Urine Ketones: Positive Urine Glucose: Negative Urine Blood: Negative NST Information Date on Monitor: 01/31/24 Time on Monitor: 11: Date off Monitor: 01/31/24 Time off Monitor: 13:03 Total Time on Monitor: 95 NST Interventions: IV Fluids Contraction Frequency: q2-5 NST Evaluation Patient States Movement: Present FHR Baseline: 130 Variability: Moderate 6-25 bpm Accelerations: 15x15 Decelerations: None NST Results: Reactive Note Ultrasound Done: Presentation Presentation Results: cephalic Coding for Presentation w/NST: Completed Exam. NST Note NST Reviewed and Verified by: Bridgette Waite
[2024-02-02 14:44] LABS: Fentanyl Scr w/Rfx Confirm Negative ng/mL (<1)
[2024-02-06 11:40] LABS: Buprenorphine Negative ng/mL (Cutoff: 5.0); Norbuprenorphine Negative ng/mL (Cutoff: 2.5)
== END 2024-01-31 13:15 | disposition other institution (70) ==
LOC: BCD 11:32 → OBS 11:35
PROVIDERS: PCP Nurse Practitioner Family; Visit Provider Advanced Practice Midwife
DX: O60.03 Preterm labor without delivery, third trimester (principal); Z3A.29 29 weeks gestation of pregnancy
CPT/HCPCS: 59025; 76816; 80307; 80348; 81003; 81015; 87081; 87086; J0702; J2405; J2540; J3475

== ENCOUNTER 2024-02-03 13:54 | Outpatient (REF) | payer MEDICAID, SELFPAY ==
[2024-02-03 14:42] LABS: *AMPHETAMINES SCREEN URINE Negative (Negative); *BARBITURATES SCREEN URINE Negative (Negative); *BENZODIAZEPINES SCREEN URINE Negative (Negative); Cannabinoids THC Positive (Negative); Cocaine Screen,Urine Negative (Negative); METHADONE URINE SCREEN Negative (Negative); OPIATES URINE SCREEN Negative (Negative); Tricyclic Antidepressants Negative (Negative)
[2024-02-04 11:37] LABS: Fentanyl Scr w/Rfx Confirm Negative ng/mL (<1)
[2024-02-09 11:25] LABS: Buprenorphine Negative ng/mL (Cutoff: 5.0); Norbuprenorphine Negative ng/mL (Cutoff: 2.5)
== END 2024-02-03 13:55 | disposition home or self-care (01) ==
LOC: LBN 13:54
PROVIDERS: PCP Nurse Practitioner Family; Visit Provider Advanced Practice Midwife
DX: O60.03 Preterm labor without delivery, third trimester (principal); R82.5 Elevated urine levels of drugs, medicaments and biological substances; O99.323 Drug use complicating pregnancy, third trimester; F12.90 Cannabis use, unspecified, uncomplicated
CPT/HCPCS: 80307; 80348; 87480; 87510; 87660

== ENCOUNTER 2024-02-03 15:14 | Observation (INO) | payer MEDICAID, SELFPAY ==
[2024-02-03 14:38] VITALS: BP 126/78; PULSE 81; TEMP 36.4
[2024-02-03] MEDS: NIFEdipine 10 MG CAP 20 MG PO (15:20)
[2024-02-03] MEDS: Lactated Ringers 1,000 ML 150 ML IV (15:31)
[2024-02-03 15:50] VITALS: BP 115/66; PULSE 93; RESP 14; TEMP 36.5; O2SAT 98
--- NOTE | 2024-02-03 17:35 | HPE_ITS ---
Date of service: 02/03/24 Time of Service: 15:00 Assessment and Plan Assessment and plan (1) labor in third trimester: Status: Acute Assessment and plan: A: 28 yo G1 @ 29+6 wks; PTL, dilation 3-4 cm/100% anterior, vtx -1/-2, forebag at cvx Transferred to [facility] on 01/31/24 for PTL, discharged last night to home, celestone complete Does not appreciate uterine activity, is comfortable and in NAD Given 20 mg nifedipine and IVF 150 ml/hr. 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 GBS neg, UC&S neg, received PCN prophylaxis & magnesium neuro-protection during previous transfer P: Pt under the care of Antonia Ruth, plan is overnight observation & consult with M @ [facility] Qualifiers: Fetus number: single or unspecified fetus OB-HPI Labor/Delivery History of Present Illness Reason for Visit: NST Chief Complaint: Suspected Labor; Other (pt presented today after discharge from [facility] last night, she wanted an NST to assure her the baby was ok, uterine irritability noted per toco, SVE @ 29+6 wks 4cm dilated, anterior cvx with soft forebag, vtx -1). ALLAN Calculator Estimated Delivery Date Method Current WG Current Estimate 04/14/24 Ultrasound #1 29w 6d Other Estimates 02/26/24 LMP (Uncertain) 36w 5d History of Present Expected Delivery Route/Plan -CNM FOB/rina Blackburn (first child) BG Damian VZV and Rubella non immune, offer vaccines Nexplanon immediately GBS neg 01/30 at 29 weeks, repeat at 36 weeks___ Specific Issues/Plan 1. Chronic migraine, referred to [facility] neurology 2. cfDNA low risk female, CF negative 3. Pap is due but declined at initial OB visit, repeat post partum____ 4. 5 P's +, THC use, discussed FSP, UDS @ 28 wks=THC+, 4a. initial UDS Opiate+, ID/confirmation shows Codeine, discussed w/pt - neg repeat testing 01/30, repeated 02/02____ 5. Covid infection 01/04 - prescribed paxlovid but did not take it. 6. Transferred to [facility] for labor - discharged to home after steroid treatment 02/01. urine culture neg Assessment: History Reviewed & Current Review of Systems Narrative: ROS completed and noncontributory other than HPI PFSH All Active Problems (Updated 02/03/24 @ 13:29 by Marry Bowling CNM) Right flank pain (Acute) labor in third trimester (Acute) Marijuana use during (Acute) Positive urine drug screen (Acute) Maternal varicella, non-immune (Acute) Rubella non-immune status, antepartum (Acute) (Acute) Gastroesophageal reflux disease (Chronic) Medication overuse headache (Acute) Migraine headache without aura (Acute) Migraine headache with aura (Acute) Migraine, unspecified, not intractable, without status migrainosus (Acute 04/10/16) Medical History (Updated 02/03/24 @ 13:29 by Marry Bowling CNM) History of kidney stones Positive test Amenorrhea Strain of flexor digitorum superficialis tendon (09/25/19) Asthma Surgical History S/P exploratory laparotomy w/ hernia repair urachal cyst excision (01/21/17) Tonsillectomy and adenoidectomy (~2010) Biopsy, Soft Tissue (04/17/17) excision left lower extremity, melanocytic nevus Family History Mother Mental disorder anxiety Father Substance abuse Migraines chronic and disabled with O2 therpay for Other Diabetes MGM Migraines paternal side Neoplasm mat great aunt-blood Sister Asthma Sister Asthma Social History Smoking/Tobacco Use Status: Former Tobacco Use Smoking risk assessment performed?: Yes Alcohol Intake: former Drug use: Daily Substance use type: marijuana Details: 04/20/21--no marijuana past 4 days Household members: family Housing: house Number of Children: 0 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 History History 1 Para 0 Hx # Term Pregnancies 0 Multiple births 0 Hx # Pregnancies 0 Ectopic pregnancies 0 AB induced 0 Hx Number of Living Children 0 AB spontaneous 0 Meds Allergies and Home Medications Allergies Allergy/AdvReac Type Severity Reaction Status Date / Time codeine AdvReac Intermediate hyper Verified 02/03/24 13:18 Melon AdvReac Unknown Hives Uncoded 02/03/24 13:18 Home Medications ?Medication ?Instructions ?Recorded ?Confirmed ?Type acetaminophen 325 mg tablet 650 mg (2 x 325 mg) PO PRN PRN ##0 01/21/17 02/03/24 Rx (Tylenol) omeprazole 40 mg capsule,delayed 40 mg PO DAILY #30 caps 08/29/23 02/03/24 Rx release ondansetron HCl 4 mg tablet 4 mg PO Q6H PRN nausea and 09/01/23 02/03/24 Rx vomiting #20 tabs vits 75-iron 28 mg-folic pkg PO 09/30/23 02/03/24 History acid 800 mcg-omega-3 oral combo pack (One A Day Women's DHA) Exam Physical Exam Vital signs: Temp Pulse Resp BP Pulse Ox 97.7 F 93 H 14 115/66 98 02/03/24 15:50 02/03/24 15:50 02/03/24 15:50 02/03/24 15:50 02/03/24 15:50 Vital Signs Reviewed: Yes Constitutional Constitutional: no acute distress and cooperative Detailed Labor and Delivery Exam Dilation: 4 Effacement (%): 100 station: -1 Cervix position: anterior Consistency: soft Amniotic Membrane Status: Intact (forebag palpable) Contraction Frequency(min): irritability Contraction Intensity: Mild Fetus A Heart Rate Baseline: 145 Monitor Accelerations: 10 X 10 Monitor Decelerations: None Variability: Moderate (6-25 BPM) Categories: Category I HEENT Exam HEENT Exam: Normal Neck Exam Neck Exam: Normal Chest/Brest/Axilla Exam Chest Exam: Normal Breast Exam Breast Exam: Not Done Respiratory Exam Respiratory Exam: Normal Cardiovascular Exam Cardiovascular Exam: Normal Abdominal Exam Abdominal Exam: Normal (Gravid, nontender) Rectal Exam Rectal Exam: Normal Exam Exam: Normal Extremities Exam Extremities Exam: Normal Back/Spine/Pelvis Exam Back Exam: Normal Pelvis Adequate: Yes Skin Exam Skin Exam: Normal Neurological Exam Neurological Exam: Normal Psychiatric Exam Psychiatric Exam: Normal Results Results Group Beta Strep: Negative (C&S collected 01/31/24) Blood Type: A+ Rubella Status: Nonimmune Varicella Immunity: Nonimmune Risk Assessment Risk for Shoulder Dystocia Historical/Initial OB: NEGATIVE FOR: Pelvic Abnormality, Pre- BMI>30, Previous Shoulder Dystocia or Previous Macrosomia Risk for Pre-Eclampsia Date Initiated/Initials: 09/30/23 Yes, if one or more: NEGATIVE FOR: Hx Pre-E/Gest HTN, Chronic HTN, Multiple Gestation, Pre-gestational DM, Renal Disease, Systemic Lupus or APA Syndrome Yes, if 2 or more: POSITIVE FOR: Nulliparity; NEGATIVE FOR: Age>= 35 yrs, >10yr btwn pregnancies, BMI>30, ethinicty, Mother/Sister w/ Pre-E or Previous IUGR Risk for Post- Hemorrhage Initial: NEGATIVE FOR: Multiple Gestation, Previous PPH, Known Clotting Deficiency, Grand Multiparity or Anticoagulation Counseled re: Active Management: Yes Date/Initials: 09/30/23 Risks Reviewed Risks Reviewed Upon Admission: Yes
[2024-02-03 17:50] VITALS: BP 117/67; PULSE 81; RESP 14; TEMP 36.6
--- NOTE | 2024-02-03 18:00 | HPE_ITS ---
Date of service: 02/03/24 Time of Service: 18:00 Assessment and Plan Assessment and plan (1) labor in third trimester: Status: Acute Assessment and plan: Per consultation with [facility] MFM provider pt will be admitted and observed overnight. Repeat SVE in am. If cervix is unchanged plan discharge with close f/u in [facility]. Qualifiers: labor delivery status: without delivery Qualified Code(s): O60.03 - labor without delivery, third trimester OB-HPI Labor/Delivery History of Present Illness Reason for Visit: NST Chief Complaint: Other (Admission to [facility] 01/31/24 with labor. Pt wanted assurance that fetus was ok. ). ALLAN Calculator Estimated Delivery Date Method Current WG Current Estimate 04/14/24 Ultrasound #1 29w 6d Other Estimates 02/26/24 LMP (Uncertain) 36w 5d History of Present Expected Delivery Route/Plan -CNM FOB/rina Blackburn (first child) BG Damian VZV and Rubella non immune, offer vaccines Nexplanon immediately GBS neg 01/30 at 29 weeks, repeat at 36 weeks___ Specific Issues/Plan 1. Chronic migraine, referred to [facility] neurology 2. cfDNA low risk female, CF negative 3. Pap is due but declined at initial OB visit, repeat post partum____ 4. 5 P's +, THC use, discussed FSP, UDS @ 28 wks=THC+, 4a. initial UDS Opiate+, ID/confirmation shows Codeine, discussed w/pt - neg repeat testing 01/30, repeated 02/02____ 5. Covid infection 01/04 - prescribed paxlovid but did not take it. 6. Transferred to [facility] for labor - discharged to home after steroid treatment 02/01. urine culture neg Narrative: Pt is a 28yo G1 female currently 29w6d EGA who presented to [facility] today in follow up from a 48hr [facility] admission for labor. On 01/31/24 she was diagnosed with cervical dilation to 3cm and regular contractions at [facility]. Pt was transfered to [facility] where she was observed for 48hrs. During that time her cervical exam did not change and she received two doses of Betamethsone. Pt was discharged to home with instructions to f/u at [facility]. On presentation this afternoonshe denied contractions but CNM exam was 3-4cm and amniotic sac was palpable when vertex entered lower uterine cervix. Pt was given a dose of Nifedipine and received 300cc of LR IV. I spoke with Dr. Hutchinson of [facility] MFM department regarding pt disposition. She agreed that observation of pt on Center overnight was appropriate and that Nifedipine was not needed. Informed Consent Informed Consent: Risk,Benefits,Alternatives Discussed Review of Systems Narrative: No flank pain. Not appreciating contractions. All systems reviewed & are unremarkable except as noted in HPI and below Respiratory Respiratory: Reports system reviewed and no additional complaints, except as documented Gastrointestinal Gastrointestinal: Reports system reviewed and no additional complaints, except as documented Musculoskeletal Musculoskeletal: Reports system reviewed and no additional complaints, except as documented Neurologic Neurologic: Reports system reviewed and no additional complaints, except as documented Psychiatric Psychiatric: Reports system reviewed and no additional complaints, except as documented PFSH All Active Problems (Updated 02/03/24 @ 20:10 by Joanne Knight MD) Right flank pain (Acute) labor in third trimester (Acute) Marijuana use during (Acute) Positive urine drug screen (Acute) Maternal varicella, non-immune (Acute) Rubella non-immune status, antepartum (Acute) (Acute) Gastroesophageal reflux disease (Chronic) Medication overuse headache (Acute) Migraine headache without aura (Acute) Migraine headache with aura (Acute) Migraine, unspecified, not intractable, without status migrainosus (Acute 0 04/10/16) Medical History (Updated 02/03/24 @ 20:10 by Joanne Knight MD) History of kidney stones Positive test Amenorrhea Strain of flexor digitorum superficialis tendon (09/25/19) Asthma Surgical History S/P exploratory laparotomy w/ hernia repair urachal cyst excision (01/21/17) Tonsillectomy and adenoidectomy (~2010) Biopsy, Soft Tissue (04/17/17) excision left lower extremity, melanocytic nevus Family History Mother Mental disorder anxiety Father Substance abuse Migraines chronic and disabled with O2 therpay for Other Diabetes MGM Migraines paternal side Neoplasm mat great aunt-blood Sister Asthma Sister Asthma Social History Smoking/Tobacco Use Status: Former Tobacco Use Smoking risk assessment performed?: Yes Alcohol Intake: former Drug use: Daily Substance use type: marijuana Details: 04/20/21--no marijuana past 4 days Household members: family Housing: house Number of Children: 0 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 History History 1 Para 0 Hx # Term Pregnancies 0 Multiple births 0 Hx # Pregnancies 0 Ectopic pregnancies 0 AB induced 0 Hx Number of Living Children 0 AB spontaneous 0 Meds Allergies and Home Medications Allergies Allergy/AdvReac Type Severity Reaction Status Date / Time codeine AdvReac Intermediate hyper Verified 02/03/24 13:18 Melon AdvReac Unknown Hives Uncoded 02/03/24 13:18 Home Medications ?Medication ?Instructions ?Recorded ?Confirmed ?Type acetaminophen 325 mg tablet 650 mg (2 x 325 mg) PO PRN PRN ##0 01/21/17 02/03/24 Rx (Tylenol) omeprazole 40 mg capsule,delayed 40 mg PO DAILY #30 caps 08/29/23 02/03/24 Rx release ondansetron HCl 4 mg tablet 4 mg PO Q6H PRN nausea and 09/01/23 02/03/24 Rx vomiting #20 tabs vits 75-iron 28 mg-folic pkg PO 09/30/23 02/03/24 History acid 800 mcg-omega-3 oral combo pack (One A Day Women's DHA) Exam Physical Exam Vital signs: Temp Pulse Resp BP Pulse Ox 97.7 F 81 14 117/67 98 02/03/24 15:50 02/03/24 17:50 02/03/24 15:50 02/03/24 17:50 02/03/24 15:50 Vital Signs Reviewed: Yes Narrative: SVE not repeated. Previous exam 4cm /100/-1. Constitutional Constitutional: no acute distress Detailed Labor and Delivery Exam Del Valle Score: Cervical Points Exam 0 1 2 3 Dilation Closed 1-2cm 3-4 cm 5-6cm Effacement 0-30% 40-50% 60-70% 80% Consistency Firm Medium Soft Station -3 -2 -1,0 +1,+2 Position Posterior Mid Anterior Fetus A Heart Rate Baseline: 140 Neck Exam Neck Exam: Normal Breast Exam Breast Exam: Not Done Respiratory Exam Respiratory Exam: Normal Cardiovascular Exam Cardiovascular Exam: Normal Abdominal Exam Abdominal Exam: Normal (no focal abdominal tenderness) Rectal Exam Rectal Exam: Not Done Exam Exam: Abnormal (Per cervical exam of CNM at 1700) Back/Spine/Pelvis Exam Back Exam: Not Done Skin Exam Skin Exam: Normal Neurological Exam Neurological Exam: Normal Psychiatric Exam Psychiatric Exam: Normal Results Results Group Beta Strep: Negative (C&S collected 01/31/24) Blood Type: A+ Rubella Status: Nonimmune Varicella Immunity: Nonimmune Risk Assessment Risk for Shoulder Dystocia Historical/Initial OB: NEGATIVE FOR: Pelvic Abnormality, Pre- BMI>30, Previous Shoulder Dystocia or Previous Macrosomia Risk for Pre-Eclampsia Date Initiated/Initials: 09/30/23 DRAKE Yes, if one or more: NEGATIVE FOR: Hx Pre-E/Gest HTN, Chronic HTN, Multiple Gestation, Pre-gestational DM, Renal Disease, Systemic Lupus or APA Syndrome Yes, if 2 or more: POSITIVE FOR: Nulliparity; NEGATIVE FOR: Age>= 35 yrs, >10yr btwn pregnancies, BMI>30, ethinicty, Mother/Sister w/ Pre-E or Previous IUGR Risk for Post- Hemorrhage Initial: NEGATIVE FOR: Multiple Gestation, Previous PPH, Known Clotting Deficiency, Grand Multiparity or Anticoagulation Counseled re: Active Management: Yes Date/Initials: 09/30/23 Risks Reviewed Risks Reviewed Upon Admission: Yes
[2024-02-03] MEDS: Acetaminophen 325 MG TAB PO (19:27)
[2024-02-03 19:30] VITALS: BP 118/64; PULSE 78; RESP 16; TEMP 36.8; O2SAT 99
[2024-02-04 06:47] VITALS: BP 104/64; PULSE 89; RESP 16; TEMP 36.7; O2SAT 99
[2024-02-04] MEDS: NIFEdipine 10 MG CAP 20 MG PO (08:12)
[2024-02-04] MEDS: Normal Saline Flush 10 ML SYR IVP (08:20)
[2024-02-04] MEDS: MAGNESIUM SULFATE 20 GM/500 ML BAG IV_INF (08:30)
[2024-02-04 08:32] VITALS: BP 119/75; PULSE 100; RESP 18; TEMP 36.8; O2SAT 98
[2024-02-04 08:47] VITALS: BP 114/68; PULSE 127
--- NOTE | 2024-02-04 08:51 | W.PM.DS.N ---
Date of service: 02/04/24 Time of Service: 08:51 DS: Diagnosis Discharge Diagnosis (1) labor in third trimester: Status: Acute Discharge Plan Disposition Patient Disposition: Transfer-Acute Inpatient Care Specific Acute Inpt Facility: [facility] Condition: Stable Discharge Details Reason For Visit: NST Admit Date/Time: 02/03/24 15:14 Admit Provider: Joanne Knight Attending Provider: Joanne Knight Primary Care Provider: Deyanira Torres Hospital Course Hospital Course: Pt is a 28yo G1 female currently 30w0d EGA admitted to [facility] following a 48hr [facility] admission for labor. On 01/31/24 she was diagnosed with cervical dilation to 3cm and regular contractions at [facility]. Pt was transfered to [facility] where she was observed for 48hrs. During that time her cervical exam did not change and she received two doses of Betamethsone. GBS performed at [facility] was neg. VE upon discharge from [facility] was 3/90/-1. Pt was discharged to home with instructions to f/u at [facility]. On presentation to [facility] on 02/03/24 he denied contractions but CNM exam was 3-4cm and amniotic sac was palpable when vertex entered lower uterine cervix. Pt was given a dose of Nifedipine and received 300cc of LR IV. I spoke with Dr. Hutchinson of [facility] MFM department regarding pt disposition. She agreed that observation of pt on Center overnight was appropriate and that further Nifedipine was not needed. Pt was awakened this morning by regular painful contractions. No loss of fluid. SVE 4cm/90/-2. BOW palpable. 20mg of Nifedipine po,Magnesium Sulfate 4gm loading dose and 1gm/hr infusion started. Based on proximity of [facility] to [facility] I chose to call MFM dept at [facility] who accepted pt in transfer. She is agreeable to transfer. GBS RV Cx was not repeated. Home Meds and New Rx's Prescriptions: No Action One A Day Women's DHA 28 mg iron- 800 mcg combo pack PO ondansetron HCl 4 mg tablet 4 mg PO Q6H PRN (Reason: nausea and vomiting) Qty: 20 5RF omeprazole 40 mg capsule,delayed release(DR/EC) 40 mg PO DAILY Qty: 30 3RF acetaminophen [Tylenol] 325 MG tablet 650 mg PO PRN PRNQty: 0 0RF Discharge Instructions Activity:: amb to toilet Equipment/Supplies:: No Equipment Needed Diet:: As Tolerated Discharge Orders Discharge Orders: Discharge Order (Routine); Ordered 02/04/24 Ordered By: Joanne Knight DS: Summary Time Spent with Patient providing and/or coordinating discharge services: Greater than 30 minutes Status at Discharge Functional status at discharge: independent ambulation Overall status at discharge: patient is not back to baseline Mental Status: mental status grossly normal Speech and Movement: speech and movement normal Mood: congruent mood Affect: normal affect Quality:SDOH Health Related Social Needs: No Data to Display Exam Narrative Exam Narrative: Alert oriented, uncomfortable due to her magnesium, some nausea. HENMT Head: normal to inspection Eyes General: appearance normal, both eyes and all related structures Resp Effort & Inspection: normal respiratory effort, no audible wheezes and no cough Cardio Rate: tachycardic Rhythm: regular rhythm Other: Repeat cervical exam per dye jig operator, no change, 1 cm, 100%, bulging bag of water. Neuro General: patient alert, patient awake and patient oriented x3 Psych Mental Status: mental status grossly normal Speech and Movement: speech and movement normal Mood: congruent mood Affect: normal affect DS: Data Vitals/I&O Vitals and I&O: Vital Signs Temperature 98.1 F 02/04/24 06:47 Temperature 97.5 F 02/03/24 14:38 Temperature Source Oral 02/04/24 06:47 Pulse 127 H 02/04/24 08:47 Pulse 81 02/03/24 14:38 Pulse Rhythm Regular 02/04/24 08:37 Respiratory Rate 16 02/04/24 06:47 Blood Pressure 114/68 02/04/24 08:47 Blood Pressure 126/78 02/03/24 14:38 Blood Pressure Mean 77 02/04/24 06:47 Pulse Oximetry 99 02/04/24 06:47 Pain Level 0 02/03/24 16:05 Intake & Output 02/03/24 02/03/24 02/04/24 11:59 23:59 11:59 Intake Total 1000 / 1000 Balance 1000 / 1000 Weight 149 lb 8 oz 149 lb 8 oz Intake: IV 1000 / 1000 Other: Urine Color Yellow Urine Appearance Clear Urine Odor None PFSH All Active Problems (Updated 02/03/24 @ 20:10 by Joanne Knight MD) Right flank pain (Acute) labor in third trimester (Acute) Marijuana use during (Acute) Positive urine drug screen (Acute) Maternal varicella, non-immune (Acute) Rubella non-immune status, antepartum (Acute) (Acute) Gastroesophageal reflux disease (Chronic) Medication overuse headache (Acute) Migraine headache without aura (Acute) Migraine headache with aura (Acute) Migraine, unspecified, not intractable, without status migrainosus (Acute 04/10/16) Medical History (Updated 02/03/24 @ 20:10 by Joanne Knight MD) History of kidney stones Positive test Amenorrhea Strain of flexor digitorum superficialis tendon (09/25/19) Asthma Surgical History S/P exploratory laparotomy w/ hernia repair urachal cyst excision (01/21/17) Tonsillectomy and adenoidectomy (~2010) Biopsy, Soft Tissue (04/17/17) excision left lower extremity, melanocytic nevus Family History Mother Mental disorder anxiety Father Substance abuse Migraines chronic and disabled with O2 therpay for Other Diabetes MGM Migraines paternal side Neoplasm mat great aunt-blood Sister Asthma Sister Asthma Social History Smoking/Tobacco Use Status: Former Tobacco Use Smoking risk assessment performed?: Yes Alcohol Intake: former Drug use: Daily Substance use type: marijuana Details: 04/20/21--no marijuana past 4 days Household members: family Housing: house Number of Children: 0 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 History History 1 Para 0 Hx # Term Pregnancies 0 Multiple births 0 Hx # Pregnancies 0 Ectopic pregnancies 0 AB induced 0 Hx Number of Living Children 0 AB spontaneous 0 Time Spent with Patient Time Spent with Patient: <45 minutes Time was spent: preparing to see the patient(eg.review tests), obtaining and/or reviewing separately otained hiistory, referring, communicating with other health palliative care physician, counseling the patient and care coordination
[2024-02-04] MEDS: Ondansetron 4 MG/2 ML VIAL IVP (09:00)
[2024-02-04 09:18] VITALS: BP 134/72; PULSE 111
--- NOTE | 2024-02-04 10:46 | W.OBNST ---
Date of service: 02/03/24 Time of Service: 10:46 NST Evaluation Reason for NST Reasons for Nonstress Test: LABOR Gestational Age Gestational Age in Weeks and Days: 30 Weeks and 0Days Test and Monitor Explained Test/Monitor Explained: Test Explained, Monitor Explained and Patient Verbalized Understanding Vital Signs Blood Pressure: 126/78 Pulse: 81 Temperature: 97.5 F Urine Results Urine Protein: Negative Urine Ketones: Negative Urine Glucose: Negative Urine Blood: Negative NST Information Date on Monitor: 02/03/24 Time on Monitor: 13:52 Date off Monitor: 02/03/24 Time off Monitor: 14:28 Total Time on Monitor: 36 NST Interventions: Notify Provider Contraction Frequency: 3 NST Evaluation Patient States Movement: Present FHR Baseline: 135 Variability: Moderate 6-25 bpm Accelerations: 15x15 Decelerations: None NST Results: Reactive Note Ultrasound Done: Presentation Presentation Results: vertex confirmed Coding for Presentation w/NST: Completed Exam and N/A. NST Note Note: Stefani came in for scheduled visit and she had concern about the baby's heart rate pattern due to a deceleration heard at [facility] during her admission. She was sent to the center for NST. Reactive NST and painless, frequent contractions noted. i attempted a cervical check but this was uncomfortable for Stefani so i requested that Laura kessler CNM check her as she had assessed her prior to her transfer. Cervix was [address] Knight was notified of her status and assumed her care. NST Reviewed and Verified by: Marry Bowling
[2024-02-04 10:50] VITALS: BP 126/78; PULSE 81; TEMP 36.4
== END 2024-02-04 09:30 | disposition short-term general hospital (02) ==
LOC: OBS 15:31
PROVIDERS: Admitting Provider Obstetrics & Gynecology Gynecology; PCP Nurse Practitioner Family; Visit Provider Obstetrics & Gynecology Gynecology
DX: O60.03 Preterm labor without delivery, third trimester (principal); Z3A.30 30 weeks gestation of pregnancy; O99.353 Diseases of the nervous system complicating pregnancy, third trimester; O99.613 Diseases of the digestive system complicating pregnancy, third trimester; O99.323 Drug use complicating pregnancy, third trimester; O99.513 Diseases of the respiratory system complicating pregnancy, third trimester; G43.E09 Chronic migraine with aura, not intractable, without status migrainosus; K21.9 Gastro-esophageal reflux disease without esophagitis; F12.90 Cannabis use, unspecified, uncomplicated; J45.909 Unspecified asthma, uncomplicated
CPT/HCPCS: G0378; J2405; J3475

== ENCOUNTER 2024-02-19 02:44 | Inpatient (IN) | payer MEDICAID, SELFPAY ==
[2024-02-19] VITALS (19 sets, daily range): BP systolic 111–167; BP diastolic 59–81; PULSE 60–160; RESP 16; TEMP 36.1–36.6; O2SAT 98–99
--- NOTE | 2024-02-19 03:00 | PLAC_PTH ---
PATIENT: Stefani Hatfield LOC: OBS U#:[id number] AGE/SX: 28/F ROOM: OBS.305 RE02/19/[address]: Beatriz Guido DO : 1995 BED: A DIS: 02/19/2024 SPEC #: [id number] RECD: 02/19/24 12:53 STATUS: SOUT REQ #: [id number] EDWIN: 02/19/24 03:[address]: Beatriz Guido DEPT: Surgical Specimen RECD BY: Diana Rdz ENTERED: 02/19/24 12:54 SP TYPE: PLAC OTHR DR: Deyanira Torres Tissues: 1 - PLACENTA (3RD TRIMESTER) Procedures: GROSS AND MICRO LEVEL 5 Comments: [id number]
[2024-02-19] MEDS: Ibuprofen 600 MG TAB PO (03:14)
[2024-02-19] MEDS: Acetaminophen 325 MG TAB ×2 (03:15)
--- NOTE | 2024-02-19 03:34 | W.PM.OBHPL1 ---
Date of service: 02/19/24 Time of Service: 03:34 Assessment and Plan Assessment and plan (1) labor in third trimester: Status: Acute Assessment and plan: A: 28 yo G1 @ 32+1 wks Previous treatment at [facility] and then at [facility] for labor Celestone complete, GBS negative from 29 wk culture Arriving in unit in 2nd stage labor and SROM clear 0200 Category 1 tracing on admission, low risk for SD or PPH P: Admit to BC, pt declining usual admission procedures and actively pushing Dr. Guido (OB) notified and en route Dr. Ramsey (Peds) notified and en route 2nd stage huddle completed, anticipate shortly (2) with 32 completed weeks gestation: Status: Acute OB-HPI Labor/Delivery History of Present Illness Reason for Visit: labor Chief Complaint: Uterine Contractions (pt states mild contractions were happening at 2200 but she was able to go to sleep, after her water broke the pains increased); Suspected Rupture of Membranes , Associated Signs and Symptoms of Suspected ROM: was sleeping and woke up to void, felt large gush of water just prior to 0200, blood tinged mucous noted too. ALLAN Calculator Estimated Delivery Date Method WG Current Estimate 04/14/24 Ultrasound #1 Other Estimates 02/26/24 LMP (Uncertain) Infant Delivery Date-Baby A 02/19/24 32w 1d History of Present Expected Delivery Route/Plan -CNM FOB/rina Blackburn (first child) BG Damian VZV and Rubella non immune, offer vaccines Nexplanon immediately GBS neg 01/30 at 29 weeks, repeat at 36 weeks___ Specific Issues/Plan 1. Chronic migraine, referred to [facility] neurology 2. cfDNA low risk female, CF negative 3. Pap is due but declined at initial OB visit, repeat post partum____ 4. 5 P's +, THC use, discussed FSP, UDS @ 28 wks=THC+, 4a. initial UDS Opiate+, ID/confirmation shows Codeine, discussed w/pt - neg repeat testing 01/30, repeated 02/02____ 5. Covid infection 01/04 - prescribed paxlovid but did not take it. 6. Transferred to [facility] for labor - discharged to home after steroid treatment 02/01. urine culture neg Assessment: History Reviewed & Current Review of Systems Narrative: ROS completed and found to be noncontributory other than HPI PFSH All Active Problems (Updated 02/19/24 @ 03:42 by Bridgette Waite) with 32 completed weeks gestation (Acute) Right flank pain (Acute) labor in third trimester (Acute) Marijuana use during (Acute) Positive urine drug screen (Acute) Maternal varicella, non-immune (Acute) Rubella non-immune status, antepartum (Acute) (Acute) Gastroesophageal reflux disease (Chronic) Medication overuse headache (Acute) Migraine headache without aura (Acute) Migraine headache with aura (Acute) Migraine, unspecified, not intractable, without status migrainosus (Acute 04/10/16) Medical History (Updated 02/19/24 @ 03:42 by Bridgette Waite) History of kidney stones Positive test Amenorrhea Strain of flexor digitorum superficialis tendon (09/25/19) Asthma Surgical History S/P exploratory laparotomy w/ hernia repair urachal cyst excision (01/21/17) Tonsillectomy and adenoidectomy (~2010) Biopsy, Soft Tissue (04/17/17) excision left lower extremity, melanocytic nevus Family History Mother Mental disorder anxiety Father Substance abuse Migraines chronic and disabled with O2 therpay for Other Diabetes MGM Migraines paternal side Neoplasm mat great aunt-blood Sister Asthma Sister Asthma Social History Smoking/Tobacco Use Status: Former Tobacco Use Smoking risk assessment performed?: Yes Alcohol Intake: former Drug use: Daily Substance use type: marijuana Details: 04/20/21--no marijuana past 4 days Household members: family Housing: house Number of Children: 0 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 History History 1 Para 0 Hx # Term Pregnancies 0 Multiple births 0 Hx # Pregnancies 0 Ectopic pregnancies 0 AB induced 0 Hx Number of Living Children 0 AB spontaneous 0 Meds Allergies and Home Medications Allergies Allergy/AdvReac Type Severity Reaction Status Date / Time codeine AdvReac Intermediate hyper Verified 02/18/24 15:13 Melon AdvReac Unknown Hives Uncoded 02/18/24 15:13 Home Medications ?Medication ?Instructions ?Recorded ?Confirmed ?Type omeprazole 40 mg capsule,delayed 40 mg PO DAILY #30 caps 08/29/23 02/18/24 Rx release vits 75-iron 28 mg-folic pkg PO 09/30/23 02/18/24 History acid 800 mcg-omega-3 oral combo pack (One A Day Women's DHA) metronidazole 500 mg tablet 500 mg PO BID #14 tabs 02/18/24 02/18/24 Rx Exam Physical Exam Vital signs: Temp Pulse BP Pulse Ox 96.9 F L 94 H 121/64 98 02/19/24 02:32 02/19/24 03:23 02/19/24 03:23 02/19/24 02:46 Vital Signs Reviewed: Yes Constitutional Constitutional: severe distress, average body habitus and cooperative Detailed Labor and Delivery Exam Dilation: 10 station: +2 Amniotic Membrane Status: Ruptured (gross ROM confirmed visually upon admission) Rupture Method: Spontaneous (0200 at home) Amniotic Fluid: Clear Contraction Frequency(min): q2-3 Contraction Intensity: Strong Fetus A Heart Rate Baseline: 140 Monitor Accelerations: Present Monitor Decelerations: Early Variability: Moderate (6-25 BPM) Categories: Category I Est. Weight: 4 lb 6.548 oz Est. Weight: 2000 gms Date of Membrane Rupture: 02/19/24 Time of Membrane Rupture: 02:00 HEENT Exam HEENT Exam: Normal Neck Exam Neck Exam: Normal Chest/Brest/Axilla Exam Chest Exam: Normal Breast Exam Breast Exam: Not Done Respiratory Exam Respiratory Exam: Normal Cardiovascular Exam Cardiovascular Exam: Normal Abdominal Exam Abdominal Exam: Normal (Gravid) Rectal Exam Rectal Exam: Normal Exam Exam: Normal Extremities Exam Extremities Exam: Normal Back/Spine/Pelvis Exam Back Exam: Normal Pelvis Adequate: Yes Skin Exam Skin Exam: Normal Neurological Exam Neurological Exam: Normal Psychiatric Exam Psychiatric Exam: Normal Results Results Group Beta Strep: Negative Blood Type: A+ Rubella Status: Nonimmune Varicella Immunity: Nonimmune Lab Results: GBS negative at 29 wks UDS + @ 28 wks for Marijuana Risk Assessment Risk for Shoulder Dystocia Historical/Initial OB: NEGATIVE FOR: Pelvic Abnormality, Pre- BMI>30, Previous Shoulder Dystocia or Previous Macrosomia Increased Risk?: No Risk for Pre-Eclampsia Date Initiated/Initials: 09/30/23 Yes, if one or more: NEGATIVE FOR: Hx Pre-E/Gest HTN, Chronic HTN, Multiple Gestation, Pre-gestational DM, Renal Disease, Systemic Lupus or APA Syndrome Yes, if 2 or more: POSITIVE FOR: Nulliparity; NEGATIVE FOR: Age>= 35 yrs, >10yr btwn pregnancies, BMI>30, ethinicty, Mother/Sister w/ Pre-E or Previous IUGR Risk for Post- Hemorrhage Initial: NEGATIVE FOR: Multiple Gestation, Previous PPH, Known Clotting Deficiency, Grand Multiparity or Anticoagulation At Risk?: No Counseled re: Active Management: Yes Date/Initials: 09/30/23 Risks Reviewed Risks Reviewed Upon Admission: Yes
--- NOTE | 2024-02-19 03:46 | W.OBDELIVERY ---
Date of service: 02/19/24 Time of Service: 03:48 OB Labor/ Delivery Information Baby A Delivery Delivery Method: Spontaneaous Presentation: Cephalic Cephalic Position: Vertex Cord Description-Baby A: 3 Vessels Amniotic Fluid: Clear and [place] Tinged Estimated Blood Loss: 300 ml Delivery Outcome: Liveborn Transferred: Nursery (baby to mother's chest initially for 2 minutes, cord cut and then baby to warmer for care. Warmer to nursery at 50 minutes.) Note: Pt has been home from [facility] for 1 week after treatment for labor. She is celestone complete, received antibiotics, magnesium, nifedipine and heparin, known GBS negative 3 weeks prior. Last evening she felt contractions after 2200, tried drinking fluids, having a snack and was able to go to sleep. She woke up at 0200 with increased contraction pain and had a large gush of clear fluids with mild bloody show. She immediately called in and then drove to the hospital with her partner, arriving with urges to push and fully dilated/+2. She declined IV access, FSE placement or admission lab draw as she was concentrating hard to deliver. External EFM was consented to and overall tracing was category 1 with occasional early noted. 2nd stage huddle was completed, Dr. Gudio arrived to unit, initiated transport arrangements with [facility]. Excellent maternal efforts resulted in of a vigorous female infant over intact perineum, to mother's arms immediately, cord clamped and cut at 2 minutes by FOB, cord blood collected, Hauser placenta intact with 3VC and minimal rubra, fundus firm below umbilicus, pt declines prophylactic IM pitocin, vulva/vagina inspected and found to be intact without laceration. Apgars 8/9, infant to warmer @ 2 minutes and nurses initiated oxygen and NRP procedures, Dr. Ramsey arrived to coordinate care, weight 2007 gms. Providers Doctor: Beatriz Guido Nurse Electrical Assembly Technician: Bridgette Waite Nurse: Carmen Waite Nurse: Mary Andrea Labor/Delivery Information Number of Babies in Womb: 1 Steroids Given: Full Course Reason Steroids Not Administered: Imminent Delivery Group Beta Strep: Negative Antibiotics Administered: No Rubella Status: Nonimmune Blood Type: A+ Varicella Immunity: Nonimmune Medication in Delivery: none Maternal Complications: Precipitous Labor(<3hrs) Shoulder Dystocia: No Stages of Labor Onset of Labor Date: 02/18/24 Onset of Labor Time: 22:00 Complete Dilatation Date: 02/19/24 Complete Dilatation Time: 02:20 Labor - Stage 1 Duration: 4 hours and 20 minutes ROM Baby A: 02/19/24 ROM Baby A: 02:00 ROM Total Time- Baby A: [id number] Delivery Date-Baby A: 02/19/24 Infant Delivery Time-Baby A: 02:53 Labor Stage 2 Duration: 33 minutes Placenta Delivery Date-Baby A: 02/19/24 Placenta Delivery Time-Baby A: 03:00 Labor-Stage 3 Duration: 7 minutes Total Length of Labor-Baby A: 4 hours and 53 minutes Placenta Cultured: No Placenta Status: Delivered Baby A Infant Gender: Female Gestational Status: (<34 wks) Gestational Age in Weeks/Days: 32 Weeks and 1 Days weight: 4 lb 6.795 oz Weight Comment: 2000 gms Score-1 Minute Interval(Baby A) Heart Rate-1 minute: 100 BPM or Greater Respiratory Effort- 1 minute: Spontaneous/Strong Cry Muscle Tone-1 minute: Active Movement Reflex Response-1 minute: Prompt Response Color-1 minute: Pallor or Cyanosis Total Score-1 minute: 8 Score-5 Minute Interval(Baby A) Heart Rate- 5 minute: 100 BPM or Greater Respiratory Effort-5 minute: Spontaneous/Strong Cry Muscle Tone-5 minute: Active Movement Reflex Response-5 minute: Prompt Response Color-5 minute: Bluish Hands or Feet Total Score- 5 minute: 9
[2024-02-19 03:58] LABS: HCT 33.8 % (36.0-46.0); HGB 11.4 g/dL (11.2-15.7); MCHC 33.7 % (32.0-36.0); MCV 89 fL (80-95); MPV 8.9 fL (8.0-11.0); Platelet Count 393 10^3/uL (130-400); RDW 12.2 % (11.7-14.6); RDW-SD 39.3 fL; WBC 20.78 10^3/uL (4.4-10.8)
--- NOTE | 2024-02-19 05:57 | W.PM.OBDISCH ---
Date of service: 02/19/24 Time of Service: 05:57 DS: Diagnosis Discharge Diagnosis (1) labor in third trimester: Status: Acute (2) with 32 completed weeks gestation: Status: Acute Discharge Plan Disposition Patient Disposition: Transfer-Acute Inpatient Care Specific Acute Inpt Facility: [facility] Condition: Good Discharge Details Reason For Visit: labor Admit Date/Time: 02/19/24 02:44 Admit Provider: Beatriz Guido Attending Provider: Beatriz Guido Primary Care Provider: Deyanira Torres Hospital Course Hospital Course: Pt delivered 32 wks within an hour of arrival in center, nml recovery @ 4 hr PP, requesting inpt transfer to [facility] for proximity to . Home Meds and New Rx's Prescriptions: No Action One A Day Women's DHA 28 mg iron- 800 mcg combo pack PO Discharge Instructions Additional Instructions: Will schedule 2 and 6 week follow up appointments, may convert to telehealth check-in calls if more convenient and in person evaluation is not indicated. Stand Alone Forms: BC Post Vaginal Deliver Activity:: Activity as Tolerated Equipment/Supplies:: No Equipment Needed Diet:: Normal Diet OB:DS Summary Summary Vaginal Delivery Method: Spontaneaous Episiotomy Description: None Laceration Description: None Laceration Extension: N/A Contraception Discussed Contraception Discussed: Yes Contraceptive Plan: Levonorgestrel Implant ( insertion planned), Gender-Baby A: Female weight: 4 lb 6.795 oz Status at Discharge Functional status at discharge: independent ambulation Overall status at discharge: patient is back to baseline Mental Status: mental status grossly normal Speech and Movement: speech and movement normal and speech clear Mood: congruent mood Affect: normal affect Quality:SDOH Health Related Social Needs: No Data to Display Hospital Course within 1 hr of admission, uncomplicated course for 4 hours Exam Physical Exam Vital signs: Temp Pulse Resp BP Pulse Ox 97.9 F 90 16 116/73 98 02/19/24 03:52 02/19/24 03:54 02/19/24 03:52 02/19/24 03:54 02/19/24 03:52 Vital Signs Reviewed: Yes Constitutional Constitutional: no acute distress, average body habitus and cooperative HEENT Exam HEENT Exam: Normal Neck Exam Neck Exam: Normal Respiratory Exam Respiratory Exam: Normal Cardiovascular Exam Cardiovascular Exam: Normal Abdominal Exam Abdomen: Other (nml, soft) Fundal Exam Fundus: Below Umbilicus and Firm Rectal Exam Rectal Exam: Normal Exam Perineum: Intact Extremities Exam Extremity Exam: Normal, Full ROM and Warm to Touch Back/Spine/Pelvis Exam Back Exam: Normal Skin Exam Skin Exam: Normal Neurological Exam Neurological Exam: Normal Psychiatric Exam Psychiatric Exam: Normal PFSH All Active Problems (Updated 02/19/24 @ 04:20 by Bridgette Waite) delivery, delivered (Acute) with 32 completed weeks gestation (Acute) labor in third trimester (Acute) Marijuana use during (Acute) Maternal varicella, non-immune (Acute) Rubella non-immune status, antepartum (Acute) Gastroesophageal reflux disease (Chronic) Migraine headache without aura (Acute) Migraine headache with aura (Acute) Medical History (Updated 02/19/24 @ 04:20 by Bridgette Waite) Migraine, unspecified, not intractable, without status migrainosus (04/10/16) Medication overuse headache Positive urine drug screen Right flank pain History of kidney stones Positive test Amenorrhea Strain of flexor digitorum superficialis tendon (09/25/19) Asthma Surgical History S/P exploratory laparotomy w/ hernia repair urachal cyst excision (01/21/17) Tonsillectomy and adenoidectomy (~2010) Biopsy, Soft Tissue (04/17/17) excision left lower extremity, melanocytic nevus Family History Mother Mental disorder anxiety Father Substance abuse Migraines chronic and disabled with O2 therpay for Other Diabetes MGM Migraines paternal side Neoplasm mat great aunt-blood Sister Asthma Sister Asthma Social History Smoking/Tobacco Use Status: Former Tobacco Use Smoking risk assessment performed?: Yes Alcohol Intake: former Drug use: Daily Substance use type: marijuana Details: 04/20/21--no marijuana past 4 days Household members: family Housing: house Number of Children: 0 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 History History 1 Para 0 Hx # Term Pregnancies 0 Multiple births 0 Hx # Pregnancies 0 Ectopic pregnancies 0 AB induced 0 Hx Number of Living Children 0 AB spontaneous 0 DS: Data Vitals/I&O Vitals and I&O: Vital Signs Temperature 97.9 F 02/19/24 03:52 Temperature Source Oral 02/19/24 03:35 Pulse 90 02/19/24 03:54 Pulse Rhythm Regular 02/19/24 03:52 Respiratory Rate 16 02/19/24 03:52 Blood Pressure 116/73 02/19/24 03:54 Pulse Oximetry 98 02/19/24 03:52 Oxygen Delivery Method Room Air 02/19/24 03:52 Oxygen Flow Rate 0 02/19/24 03:52 Intake & Output 02/18/24 02/18/24 02/19/24 11:59 23:59 11:59 Output Total 200 / 200 Balance -200 / -200 Weight 152 lb Output: Urine 200 / 200 Other: Urine Color Yellow Data Completed and Pending Labs on day of discharge: Labs from last 24 hours 02/19/24 02/19/24 04:17 03:43 WBC 20.78 H RBC 3.80 L Hgb 11.4 Hct 33.8 L MCV 89 MCH 30.0 MCHC 33.7 RDW 12.2 Plt Count 393 MPV 8.9 Ur Buprenorphine Pending Ur Norbuprenorphine Pending ABO/Rh A Positive Antibody Screen NEGATIVE
== END 2024-02-19 08:29 | disposition short-term general hospital (02) | DRG 806 ==
PROVIDERS: Admitting Provider Obstetrics & Gynecology; PCP Nurse Practitioner Family; Visit Provider Obstetrics & Gynecology
DX: O60.14X0 Preterm labor third trimester with preterm delivery third trimester, not applicable or unspecified (principal); O99.324 Drug use complicating childbirth; Z37.0 Single live birth; O99.354 Diseases of the nervous system complicating childbirth; Z3A.32 32 weeks gestation of pregnancy; F12.90 Cannabis use, unspecified, uncomplicated; O99.62 Diseases of the digestive system complicating childbirth; K21.9 Gastro-esophageal reflux disease without esophagitis; G43.809 Other migraine, not intractable, without status migrainosus
CPT/HCPCS: 36415; 80348; 85027; 86850; 86900; 86901; 88307

== ENCOUNTER 2024-05-12 14:14 | Outpatient (REF) | payer MEDICAID, SELFPAY ==
--- NOTE | 2024-05-12 14:00 | PAPFT_PTH ---
PATIENT: Stefani Hatfield LOC: GABE U#:[id number] AGE/SX: 28/F ROOM: RE05/12/[address]: Bridgette Waite CNM : 1995 BED: DIS: 05/12/2024 SPEC #: [id number] RECD: 05/12/24 16:39 STATUS: DERRICK REAdele #: [id number] EDWIN: 05/12/24 14:[address]: Bridgette Waite DEPT: [facility] Cytology RECD BY: Dorene King ENTERED: 05/12/24 16:40 SP TYPE: PAPFT OTHR DR: Deyanira Torres Tissues: 1 - CX/ENDOCX FOR PAP SMEARS Procedures: PAP THIN PREP/UVM Screening Comments: [id number]
== END 2024-05-12 14:15 | disposition home or self-care (01) ==
LOC: LBN 14:14
PROVIDERS: PCP Nurse Practitioner Family; Visit Provider Advanced Practice Midwife
DX: N94.9 Unspecified condition associated with female genital organs and menstrual cycle (principal); Z39.2 Encounter for routine postpartum follow-up; Z01.419 Encounter for gynecological examination (general) (routine) without abnormal findings; Z30.016 Encounter for initial prescription of transdermal patch hormonal contraceptive device
CPT/HCPCS: 88142; 87480; 87510; 87660